=== PATIENT | male | born 1965 | race Caucasian/White ===

== ENCOUNTER 2017-05-10 13:45 | Inpatient (IN) | payer MEDICAID, MEDICARE ==
--- NOTE | 2017-05-10 14:01 | ED ---
Psych HPI - General Source: patient, police, RN notes reviewed Mode of arrival: ambulatory <Radha Varma - Last Filed: 05/10/17 16:35> <Vaughn Soto - Last Filed: 05/10/17 17:39> - General Chief Complaint: Psychiatric Symptoms Stated Complaint: Petition Time Seen by Provider: 05/10/17 13:55 - History of Present Illness Initial Comments: 51-year-old male presents to the emergency department with a chief complaint of carissa type symptoms. Patient has a history of bipolar disorder. Patient has had a manic episode in the past. Family states that going on for about 2 weeks. Patient denies any suicidal or homicidal thoughts. They state that he is very Masking his symptoms. They state they're concerned so they thought that he should be evaluated. They did go to their doctors at the beginning week and a change his medication with no improvement. Patient denies any current health concerns. (Radha Varma) - Related Data Home Medications Medication Instructions Recorded Confirmed ALPRAZolam [Xanax] 0.5 mg PO TID PRN 05/10/17 05/10/17 Previous Rx's Medication Instructions Recorded [place] Carbonate 300 mg PO TID 15 Days 05/25/15 Allergies Allergy/AdvReac Type Severity Reaction Status Date / Time No Known Allergies Allergy Verified 05/10/17 15:21 Review of Systems ROS Other: All systems not noted in ROS Statement are negative. <Radha Varma - Last Filed: 05/10/17 16:35> ROS Other: All systems not noted in ROS Statement are negative. <Vuaghn Soto - Last Filed: 05/10/17 17:39> ROS Statement: Those systems with pertinent positive or pertinent negative responses have been documented in the HPI. Past Medical History Past Medical History: No Reported History Additional Past Medical History / Comment(s): bipolar History of Any Multi-Drug Resistant Organisms: None Reported Past Surgical History: No Surgical Hx Reported Additional Past Anesthesia/Blood Transfusion Reaction / Comment(s): has not had anesthesia or blood transfusion Past Psychological History: Bipolar Smoking Status: Heavy tobacco smoker Past Alcohol Use History: Occasional Past Drug Use History: None Reported <Radha Varma - Last Filed: 05/10/17 16:35> General Exam Limitations: no limitations General appearance: alert, in no apparent distress ENT exam: Present: normal exam, mucous membranes moist Neck exam: Present: normal inspection. Absent: tenderness, meningismus, lymphadenopathy Respiratory exam: Present: normal lung sounds bilaterally. Absent: respiratory distress, wheezes, rales, rhonchi, stridor Cardiovascular Exam: Present: regular rate, normal rhythm, normal heart sounds. Absent: systolic murmur, diastolic murmur, rubs, gallop, clicks GI/Abdominal exam: Present: soft, normal bowel sounds. Absent: distended, tenderness, guarding, rebound, rigid Neurological exam: Present: alert Psychiatric exam: Present: manic. Absent: homicidal ideation, suicidal ideation Skin exam: Present: warm, dry, intact, normal color. Absent: rash <Radha Varma - Last Filed: 05/10/17 16:35> Medical Decision Making - Lab Data Result diagrams: 05/10/17 15:27 05/10/17 15:27 <Radha Varma - Last Filed: 05/10/17 16:35> - Lab Data Result diagrams: 05/10/17 15:27 05/10/17 15:27 <Vaughn Soto - Last Filed: 05/10/17 17:39> - Medical Decision Making 51-year-old male presents for what appears to be manic type episode. This time patient does not appear to be suffering from any acute medical emergencies. This time patient is cleared to be evaluated by psychiatry. At this time lithium level and lab work is reviewed that does not show a toxic level. This time we will admit the patient psychiatric they will follow the lithium level. ( Radha Varma) I evaluated the patient at bedside speaking to his significant other. The patient's been having worsening episodes of manic behavior for the past 3 weeks. He thinks he is God, thinks he is 300,000 years old, he is asking for liverwurst. Thinks he cured his dog of cancer. Patient was evaluated by psychiatric nurse. The patient will be admitted to the psych floor. His lithium level is 1.3. It was repeated here in emergency room. Be repeated again tomorrow morning. The case discussed with his medical physician Dr. Dunn who will follow the patient as needed for medical problems. I have completed a certificate for admission for 3 W. evaluation. Diagnosis acute episode manic. Dr. Soto (Vaughn Soto) - Lab Data Lab Results 05/10/17 05/10/17 05/10/17 Range/Units 14:20 15:27 15:27 WBC 9.3 (3.8-10.6) k/uL RBC 4.63 (4.30-5.90) m/uL Hgb 15.0 (13.0-17.5) gm/dL Hct 45.5 (39.0-53.0) % MCV 98.3 (80.0-100.0) fL MCH 32.4 (25.0-35.0) pg MCHC 32.9 (31.0-37.0) g/dL RDW 12.9 (11.5-15.5) % Plt Count 177 (150-450) k/uL Neutrophils % 66 % Lymphocytes % 22 % Monocytes % 5 % Eosinophils % 6 % Basophils % 1 % Neutrophils # 6.1 (1.3-7.7) k/uL Lymphocytes # 2.1 (1.0-4.8) k/uL Monocytes # 0.5 (0-1.0) k/uL Eosinophils # 0.5 (0-0.7) k/uL Basophils # 0.1 (0-0.2) k/uL Sodium 141 (137-145) mmol/L Potassium 4.2 (3.5-5.1) mmol/L Chloride 107 (98-107) mmol/L Carbon Dioxide 27 (22-30) mmol/L Anion Gap 7 mmol/L BUN 16 (9-20) mg/dL Creatinine 0.87 (0.66-1.25) mg/dL Est GFR (MDRD) Af Amer >60 (>60 ml/min/1.73 sqM) Est GFR (MDRD) Non-Af >60 (>60 ml/min/1.73 sqM) Glucose 90 (74-99) mg/dL Calcium 10.4 H (8.4-10.2) mg/dL Total Bilirubin 0.9 (0.2-1.3) mg/dL AST 19 (17-59) U/L ALT 31 (21-72) U/L Alkaline Phosphatase 60 (38-126) U/L Total Protein 6.4 (6.3-8.2) g/dL Albumin 4.0 (3.5-5.0) g/dL Urine Opiates Screen (NotDetected) Ur Oxycodone Screen (NotDetected) Urine Methadone Screen (NotDetected) Ur Propoxyphene Screen (NotDetected) Ur Barbiturates Screen (NotDetected) U Tricyclic Antidepress (NotDetected) Ur Phencyclidine Scrn (NotDetected) Ur Amphetamines Screen (NotDetected) U Methamphetamines Scrn (NotDetected) U Benzodiazepines Scrn (NotDetected) [place] 1.4 mmol/L Urine Cocaine Screen (NotDetected) U Marijuana (THC) Screen (NotDetected) 05/10/17 Range/Units 16:00 WBC (3.8-10.6) k/uL RBC (4.30-5.90) m/uL Hgb (13.0-17.5) gm/dL Hct (39.0-53.0) % MCV (80.0-100.0) fL MCH (25.0-35.0) pg MCHC (31.0-37.0) g/dL RDW (11.5-15.5) % Plt Count (150-450) k/uL Neutrophils % % Lymphocytes % % Monocytes % % Eosinophils % % Basophils % % Neutrophils # (1.3-7.7) k/uL Lymphocytes # (1.0-4.8) k/uL Monocytes # (0-1.0) k/uL Eosinophils # (0-0.7) k/uL Basophils # (0-0.2) k/uL Sodium (137-145) mmol/L Potassium (3.5-5.1) mmol/L Chloride (98-107) mmol/L Carbon Dioxide (22-30) mmol/L Anion Gap mmol/L BUN (9-20) mg/dL Creatinine (0.66-1.25) mg/dL Est GFR (MDRD) Af Amer (>60 ml/min/1.73 sqM) Est GFR (MDRD) Non-Af (>60 ml/min/1.73 sqM) Glucose (74-99) mg/dL Calcium (8.4-10.2) mg/dL Total Bilirubin (0.2-1.3) mg/dL AST (17-59) U/L ALT (21-72) U/L Alkaline Phosphatase (38-126) U/L Total Protein (6.3-8.2) g/dL Albumin (3.5-5.0) g/dL Urine Opiates Screen Not Detected (NotDetected) Ur Oxycodone Screen Not Detected (NotDetected) Urine Methadone Screen Not Detected (NotDetected) Ur Propoxyphene Screen Not Detected (NotDetected) Ur Barbiturates Screen Not Detected (NotDetected) U Tricyclic Antidepress Not Detected (NotDetected) Ur Phencyclidine Scrn Not Detected (NotDetected) Ur Amphetamines Screen Not Detected (NotDetected) U Methamphetamines Scrn Not Detected (NotDetected) U Benzodiazepines Scrn Detected H (NotDetected) [place] mmol/L Urine Cocaine Screen Not Detected (NotDetected) U Marijuana (THC) Screen Not Detected (NotDetected) Disposition <Radha Varma - Last Filed: 05/10/17 16:35> <Vaughn Soto - Last Filed: 05/10/17 17:39> Clinical Impression: Bipolar disorder Disposition: TRANSFER TO PSYCH HOSP/UNIT Referrals: Vaughn Nguyen DO [Primary Care Provider] - 1-2 days
[2017-05-10] MEDS ORDERED: SODIUM CHLORIDE 0.9% 1,000 ML IV STA ×2 (15:10)
[2017-05-10 15:42] LABS: Basophils # (A) 0.1 k/uL (0-0.2); Basophils % (A) 1 %; CH 32.7; CHCM 33.4; Eosinophils # (A) 0.5 k/uL (0-0.7); Eosinophils % (A) 6 %; HCT 45.5 % (39.0-53.0); HDW 2.28; Luc % (Auto) 1; Lymphocytes # (A) 2.1 k/uL (1.0-4.8); Lymphocytes % (A) 22 %; MCH 32.4 pg (25.0-35.0); MCHC 32.9 g/dL (31.0-37.0); MCV 98.3 fL (80.0-100.0); Mean Platelet Volume 8.4; Monocytes # (A) 0.5 k/uL (0-1.0); Monocytes % (A) 5 %; Neutrophils # (A) 6.1 k/uL (1.3-7.7); Neutrophils % (A) 66 %; RBC 4.63 m/uL (4.30-5.90); RDW 12.9 % (11.5-15.5); WBC 9.3 k/uL (3.8-10.6); WBC (Perox) 8.98
[2017-05-10 15:57] LABS: ALT 31 U/L (21-72); AST 19 U/L (17-59); Alkaline Phosphatase 60 U/L (38-126); Anion Gap 7 mmol/L; Blood Urea Nitrogen 16 mg/dL (9-20); Calcium 10.4 mg/dL (8.4-10.2); Carbon Dioxide 27 mmol/L (22-30); Chloride 107 mmol/L (98-107); Glucose 90 mg/dL (74-99); Non-African American GFR(MDRD) >60 (>60 ml/min/1.73 sqM); Potassium 4.2 mmol/L (3.5-5.1); Sodium 141 mmol/L (137-145); Total Bilirubin 0.9 mg/dL (0.2-1.3); Total Protein 6.4 g/dL (6.3-8.2)
[2017-05-10] MEDS ORDERED: LORazepam 2 MG/ML SYRINGE IM STA (20:25)
[2017-05-10] MEDS ORDERED: MAG HYDROX/AL HYDROX/SIMETH 30 ML CUP PO PRN (21:03)
[2017-05-10] MEDS ORDERED: ACETAMINOPHEN TAB 325 MG TAB PO PRN (21:03)
[2017-05-10] MEDS ORDERED: MAGNESIUM HYDROXIDE 2,400 MG/10 ML CUP PO PRN (21:03)
[2017-05-10] MEDS ORDERED: ZIPRASIDONE 20 MG CAP PO STA (21:11)
[2017-05-11 08:57] LABS: Basophils % (A) 0 %; CH 31.7; Eosinophils # (A) 0.4 k/uL (0-0.7); Eosinophils % (A) 3 %; HCT 46.6 % (39.0-53.0); HDW 2.32; HGB 15.6 gm/dL (13.0-17.5); Luc # (Auto) 0.14; Luc % (Auto) 1; Lymphocytes % (A) 16 %; MCH 33.1 pg (25.0-35.0); MCHC 33.4 g/dL (31.0-37.0); MCV 99.2 fL (80.0-100.0); Mean Platelet Volume 7.7; Monocytes # (A) 0.4 k/uL (0-1.0); Monocytes % (A) 3 %; Neutrophils # (A) 9.7 k/uL (1.3-7.7); Neutrophils % (A) 76 %; RDW 12.5 % (11.5-15.5); WBC 12.8 k/uL (3.8-10.6); WBC (Perox) 13.23
[2017-05-11 09:03] LABS: ALT 35 U/L (21-72); AST 19 U/L (17-59); Alkaline Phosphatase 64 U/L (38-126); Anion Gap 10 mmol/L; Blood Urea Nitrogen 13 mg/dL (9-20); Calcium 10.1 mg/dL (8.4-10.2); Carbon Dioxide 25 mmol/L (22-30); Chloride 107 mmol/L (98-107); Glucose 128 mg/dL (74-99); Non-African American GFR(MDRD) >60 (>60 ml/min/1.73 sqM); Potassium 4.3 mmol/L (3.5-5.1); Sodium 142 mmol/L (137-145); Total Bilirubin 1.1 mg/dL (0.2-1.3); Total Protein 7.1 g/dL (6.3-8.2)
[2017-05-11] MEDS: NICOTINE 14MG/24HR PATCH TRANSDERM SCH (09:20)
[2017-05-11 09:49] LABS: Lithium 0.9 mmol/L
--- NOTE | 2017-05-11 11:40 | P.HP ---
Psychiatric H&P - . H&P Date: 05/11/17 History & Physical: Allergies Allergy/AdvReac Type Severity Reaction Status Date / Time No Known Allergies Allergy Verified 05/10/17 15:21 Vital Signs Temp 98.1 F 05/11/17 06:43 Pulse 67 05/11/17 06:43 Resp 16 05/11/17 06:43 BP 160/86 05/11/17 06:43 Pulse Ox 100 05/10/17 21:46 Intake & Output 05/10/17 05/11/17 05/11/17 18:59 06:59 18:59 Weight 92.079 kg 90.7 kg Laboratory Last Values WBC 12.8 k/uL (3.8-10.6) H 05/11/17 08:31 RBC 4.70 m/uL (4.30-5.90) 05/11/17 08:31 Hgb 15.6 gm/dL (13.0-17.5) 05/11/17 08:31 Hct 46.6 % (39.0-53.0) 05/11/17 08:31 MCV 99.2 fL (80.0-100.0) 05/11/17 08:31 MCH 33.1 pg (25.0-35.0) 05/11/17 08:31 MCHC 33.4 g/dL (31.0-37.0) 05/11/17 08:31 RDW 12.5 % (11.5-15.5) 05/11/17 08:31 Plt Count 195 k/uL (150-450) 05/11/17 08:31 Neutrophils % 76 % 05/11/17 08:31 Lymphocytes % 16 % 05/11/17 08:31 Monocytes % 3 % 05/11/17 08:31 Eosinophils % 3 % 05/11/17 08:31 Basophils % 0 % 05/11/17 08:31 Neutrophils # 9.7 k/uL (1.3-7.7) H 05/11/17 08:31 Lymphocytes # 2.0 k/uL (1.0-4.8) 05/11/17 08:31 Monocytes # 0.4 k/uL (0-1.0) 05/11/17 08:31 Eosinophils # 0.4 k/uL (0-0.7) 05/11/17 08:31 Basophils # 0.0 k/uL (0-0.2) 05/11/17 08:31 Sodium 142 mmol/L (137-145) 05/11/17 08:31 Potassium 4.3 mmol/L (3.5-5.1) 05/11/17 08:31 Chloride 107 mmol/L (98-107) 05/11/17 08:31 Carbon Dioxide 25 mmol/L (22-30) 05/11/17 08:31 Anion Gap 10 mmol/L 05/11/17 08:31 BUN 13 mg/dL (9-20) 05/11/17 08:31 Creatinine 0.84 mg/dL (0.66-1.25) 05/11/17 08:31 Est GFR (MDRD) Af Amer >60 (>60 ml/min/1.73 sqM) 05/11/17 08:31 Est GFR (MDRD) Non-Af >60 (>60 ml/min/1.73 sqM) 05/11/17 08:31 Glucose 128 mg/dL (74-99) H 05/11/17 08:31 Calcium 10.1 mg/dL (8.4-10.2) 05/11/17 08:31 Total Bilirubin 1.1 mg/dL (0.2-1.3) 05/11/17 08:31 AST 19 U/L (17-59) 05/11/17 08:31 ALT 35 U/L (21-72) 05/11/17 08:31 Alkaline Phosphatase 64 U/L (38-126) 05/11/17 08:31 Total Protein 7.1 g/dL (6.3-8.2) 05/11/17 08:31 Albumin 4.3 g/dL (3.5-5.0) 05/11/17 08:31 TSH 1.830 mIU/L (0.465-4.680) 05/11/17 08:31 Urine Opiates Screen Not Detected (NotDetected) 05/10/17 16:00 Ur Oxycodone Screen Not Detected (NotDetected) 05/10/17 16:00 Urine Methadone Screen Not Detected (NotDetected) 05/10/17 16:00 Ur Propoxyphene Screen Not Detected (NotDetected) 05/10/17 16:00 Ur Barbiturates Screen Not Detected (NotDetected) 05/10/17 16:00 U Tricyclic Antidepress Not Detected (NotDetected) 05/10/17 16:00 Ur Phencyclidine Scrn Not Detected (NotDetected) 05/10/17 16:00 Ur Amphetamines Screen Not Detected (NotDetected) 05/10/17 16:00 U Methamphetamines Scrn Not Detected (NotDetected) 05/10/17 16:00 U Benzodiazepines Scrn Detected (NotDetected) H 05/10/17 16:00 [place] 0.9 mmol/L 05/11/17 08:31 Urine Cocaine Screen Not Detected (NotDetected) 05/10/17 16:00 U Marijuana (THC) Screen Not Detected (NotDetected) 05/10/17 16:00 05/11/17 11:08 DATE OF SERVICE: 05/11/2017 IDENTIFYING DATA: This patient is a 51-year-old male who was admitted to the mental health unit through emergency room. HISTORY OF PRESENT ILLNESS: The patient patient was admitted to [facility]. brought in by his . Report of significant drinking in the recent past after a 90 day period of abstinence. Patient has been here before and with the diagnosis bipolar disorder he presented today in a very similar fashion as he did at the last visit in 2014 but today history is even more difficult to ascertain. His lithium level was 1.4 initially and then it was down after of back of saline to 1.2. In the last admission he apparently had stopped taking his lithium became manic and then took a large amount. Patient is a poor historian no relevant history was gathered today. Patient was initially seen in the [facility] asking for help regarding his social security number since I did not know them I asked him what his name was he looked at the board said it was Julio César Gupta, Dr. Gupta was assigned to him initially so his name was still on the board. He was conversing with RN and told her he thought she was speaking Croatian because he could not understand what she was saying. Earlier another RN encountered him in [facility] and he asked about breakfast, she took him to dinning room and it was discovered he had already eaten. A few hours later he was able to state his full name and his date of . When asked what today's date was he repeated his date of . Patients noted that patient has not showered in several days, has not slept in a week or more, thinks he is God, [age] years old, cured their dog of cancer. Patient did not give any information regarding his belief of God or other delusions. He does recall that he was hospitalized here in 2014 stating that this stay has been much better than the last one and that he is ready to go. Later he stated that he didn't want to stay here and be hypnotized, that he just wanted to say goodbye. Patient denies suicidal ideation, states he would never do something like that. PAST PSYCHIATRIC HISTORY: Record he was here in 2014 with a very similar presentation a slightly higher lithium level [place] this time and that he was confused and disoriented but eventually this resolved with a few days of medication. Patient also reports that he has been in other hospitals but he cannot recall their names.. PAST MEDICAL HISTORY: Per record. ALLERGIES: No known drug allergies. CHEMICAL DEPENDENCY HISTORY: It is known that patient has an alcohol use disorder, severe and that he was abstinent for 90 days and then recently just came home with alcohol and that he drank 3 bottles of wine within a short period of time.. FAMILY PSYCHIATRIC HISTORY: Unknown. FAMILY CHEMICAL DEPENDENCY HISTORY: Known. LEGAL HISTORY: Unknown. SOCIAL HISTORY: Was unwilling to continue discussion, he felt that he was being hypnotized. From record it states that he is retired and that he lives with his domestic partner that he does not have a job he does not have health insurance. We do note that he has Medicare part a in the last hospitalization he noted that he had 7 children.. MENTAL STATUS EXAM: Patient alert and oriented name, initially he stated wrong last name that was no the board, giving his doctors name as his last name, he gave , as todays [place]. Knew [place] but not city. Good eye contact, fair groomed in street clothing. Speech normal volume, rate and production. Incoherent, illogical and tangential thought process. + SILVERIO, +FOI. No TB/TW/TI Denied auditory and visual hallucinations. Denied paranoid ideation, delusions or IOR. Memory impaired Cognitionimpaired Could perform memory testing. Mood neutral, affect constricted, congruent with mood. Denies suicidal ideation, denies homicidal ideation. Insight none; Judgment impaired . STRENGTHS: Has income and housing. WEAKNESSES: EtOH, noncompliance with care. IMPRESSIONS: 51-year-old male presenting to the emergency room in a state of confusion, with an elevated lithium level, but not toxic. He was reporting psychotic information while in the emergency room. He has not shown manic symptoms. There is a report that he had been abstinent of alcohol for 3 months and then we started drinking. Patient is confused he is disoriented he at times is confabulating. This could be due to to taking too much lithium although his blood level was at 1.4 we don' t if if he took a large amount and this was already showing a reduction in his blood level and that he has some toxicity from the lithium. Staff reported some distant history of TIAs. ADMISSION DIAGNOSES: Delirium, unknown etiology Psychosis, unspecified Bipolar disorder, MRE manic with psychosis Alcohol use disorder, severe. R/O Cognitive disorder PLAN: Continue inpatient psychiatric admission. Will do second certification, he does not have capacity to sign in voluntarily. Suicide precautions every 15 minute checks Complete second certificate. CAT scan of the brain likely need a sedative [place] level pending. Continue antipsychotic medication, hold lithium. Start Risperdal, or Geodon, or Zyprexa depending upon cost since he does not have part B Gather more information from . Social work to address outpatient care after discharge (patient has Medicare part A, not part B) 05/11/17 11:52 05/11/17 11:53
[2017-05-11] MEDS: LORazepam 1 MG TAB PO PRN ×2 (11:45→15:16)
[2017-05-11] MEDS ORDERED: LORazepam 1 MG TAB PO PRN (11:59)
[2017-05-11] MEDS ORDERED: risperiDONE 1 MG TAB PO STA (12:48)
--- NOTE | 2017-05-11 12:57 | P.PN ---
Progress Note - Text Patient was attempting to leave the unit he was redirected multiple times but could not follow instructions. He then was noted trying to get into the nurses lunch room. Will give a Risperdal 1 mg now will start Risperdal 2 mg daily at bedtime ( reviewed cost of antipsychotic medications since he does not have part B of Medicare) Risperdal is one of the least expensive. We'll also restart lithium 600 mg daily at bedtime.
--- NOTE | 2017-05-11 16:14 | P.CONS ---
History of Present Illness - Reason for Consult Consult date: 05/11/17 Medical management - History of Present Illness Patient refused to be seen by medicine This is a 51-year-old male patient of Dr. Nguyen with past history of anxiety, tobacco use and dependence. Patient presented to [facility] emergency center with chief complaint of carissa symptoms with history of bipolar disorder. He had his last hospitalization at [facility] in May 2015. Patient did not have any suicidal or homicidal thoughts. Family thought his symptoms have been going on for 2 weeks. Apparently there were changes made to his medication at the beginning of the week with no improvement. Patient was subsequently admitted to the mental health unit. White count was 12.8, random blood sugar 128, TSH 1.830. Urine drug screen was positive for benzodiazepines. [place] level was 1.2 and repeat 0.9. Review of Systems All systems: negative Constitutional: Denies chills, Denies fever Eyes: denies blurred vision, denies pain Ears, nose, mouth and throat: Denies headache, Denies sore throat Cardiovascular: Denies chest pain, Denies shortness of breath Respiratory: Denies cough Gastrointestinal: Denies abdominal pain, Denies diarrhea, Denies nausea, Denies vomiting Musculoskeletal: Denies myalgias Integumentary: Denies pruritus, Denies rash Neurological: Denies numbness, Denies weakness Psychiatric: Reports mood swings, Denies anxiety, Denies depression, Denies hopelessness, Denies suicidal ideation Endocrine: Denies fatigue, Denies weight change Past Medical History Past Medical History: No Reported History History of Any Multi-Drug Resistant Organisms: None Reported Past Surgical History: No Surgical Hx Reported Additional Past Anesthesia/Blood Transfusion Reaction / Comm: has not had anesthesia or blood transfusion Past Psychological History: Bipolar Smoking Status: Heavy tobacco smoker Past Alcohol Use History: Occasional Past Drug Use History: None Reported Medications and Allergies Home Medications Medication Instructions Recorded Confirmed Type ALPRAZolam [Xanax] 0.5 mg PO TID PRN 05/10/17 05/10/17 History Allergies Allergy/AdvReac Type Severity Reaction Status Date / Time No Known Allergies Allergy Verified 05/10/17 15:21 Physical Exam Vitals: Vital Signs Temp Pulse Pulse Pulse Resp BP BP 05/11/17 06:43 98.1 F 67 16 05/10/17 21:46 98.0 F 60 18 150/82 05/10/17 21:12 98.7 F 79 18 156/74 05/10/17 16:22 68 18 155/90 05/10/17 13:49 97.8 F 68 18 181/90 BP Pulse Ox 05/11/17 06:43 160/86 05/10/17 21:46 100 05/10/17 21:12 98 05/10/17 16:22 98 05/10/17 13:49 98 Intake and Output 05/10/17 05/11/17 05/11/17 22:59 06:59 14:59 Other: Weight 90.7 kg Results CBC & Chem 7: 05/11/17 08:31 05/11/17 08:31 Labs: Abnormal Lab Results - Last 24 Hours (Table) 05/10/17 05/10/17 05/11/17 Range/Units 15:27 16:00 08:31 WBC 12.8 H (3.8-10.6) k/uL Neutrophils # 9.7 H (1.3-7.7) k/uL Glucose (74-99) mg/dL Calcium 10.4 H (8.4-10.2) mg/dL U Benzodiazepines Scrn Detected H (NotDetected) 05/11/17 Range/Units 08:31 WBC (3.8-10.6) k/uL Neutrophils # (1.3-7.7) k/uL Glucose 128 H (74-99) mg/dL Calcium (8.4-10.2) mg/dL U Benzodiazepines Scrn (NotDetected) Assessment and Plan Plan: 1. Bipolar disorder. Patient admitted to the mental health unit. Continue current plan of care. 2. Tobacco use and dependence. Continue nicotine patch. 3. [ ]. 4. [ ]. 5. [ ]. Impression and plan of care have been directed as dictated by the signing physician. Elizabeth العلي nurse practitioner acting as scribe for signing physician.
[2017-05-11] MEDS: LITHIUM CARBONATE 300 MG CAP PO SCH (20:16)
[2017-05-11] MEDS ORDERED: risperiDONE 2 MG TAB PO SCH (21:00)
--- NOTE | 2017-05-11 21:37 | CT ---
EXAMINATION TYPE: CT brain wo con DATE OF EXAM: 05/11/2017 COMPARISON: NONE HISTORY: Mental status changes. CT DLP: 1093.10 mGycm Automated exposure control for dose reduction was used. FINDINGS: There is no acute intracranial hemorrhage, mass effect, or midline shift identified. The ventricles and sulci are within normal limits in size. The globes are intact and the visualized sinuses are chase ar. IMPRESSION: No acute intracranial hemorrhage, mass effect, or midline shift is seen.
[2017-05-12] MEDS: LORazepam 1 MG TAB PO PRN ×3 (00:07→15:59)
[2017-05-12] MEDS ORDERED: WATER FOR INJECTION, STERILE 10 ML IV ONE (01:07)
[2017-05-12] MEDS ORDERED: ZIPRASIDONE 20 MG VIAL IM ONE (01:07)
[2017-05-12] MEDS: ZIPRASIDONE 20 MG VIAL IM PRN (01:26)
[2017-05-12] MEDS ORDERED: ZIPRASIDONE 20 MG CAP PO STA (06:12)
[2017-05-12] MEDS: NICOTINE 14MG/24HR PATCH TRANSDERM SCH (07:57)
[2017-05-12] MEDS: LITHIUM CARBONATE 300 MG CAP PO SCH ×2 (07:58→20:01)
--- NOTE | 2017-05-12 08:11 | P.PN ---
Progress Note - Text INTERVERAL HISTORY: Patient was discussed at treatment team meeting, review of record, met with patient Staff notes bizarre behavior, attempting to elope, refusing to give NIKKI to speak to . Patient received 2 doses of Geodone during the night, 20mg each, one IM. Patient was in the hallway asked if he would come to the office he followed. Patient was able to report his full name and date of . Stated that he was doing great and was ready to go. When attempting to do mental status exam patient asked "am I good-looking". Asked patient what was happening that he wanted to know he reported "I need to look in a mirror" Patient was again disoriented to date, continued to state today's date as 1964. He was aware that we were in [facility], however he went through to other hospital names before he settled on [place]. Patient still confused, no evidence of alcohol withdrawal. CAT scan showed no evidence of vascular changes, normal CAT scan. MENTAL STATUS EXAM: Patient alert and oriented name, and place after several tries, still stating todasys date as his birthdate. Good eye contact, fair groomed in street clothing. Speech normal volume, rate and production. Coherent, illogical and tangential thought process. + SILVERIO, no FOI. No TB/TW/TI Denied auditory and visual hallucinations. Denied paranoid ideation, delusions or IOR. Memory impaired Cognition impaired Could not perform memory testing. Mood neutral, affect constricted, congruent with mood. Denies suicidal ideation, denies homicidal ideation. Insight none; Judgment impaired . IMPRESSIONS: 51-year-old male presenting to the emergency room in a state of confusion, with an elevated lithium level, but not toxic. [place] level decreasing. [place] was held until last night. He continues with illogical statements, disoriented and confused. This is similiar to his last admission here when his lithium level was elevated above 2.0. He has not shown manic symptoms. There is a report that he had been abstinent of alcohol for 3 months and then he started drinking. CT WNL ADMISSION DIAGNOSES: Delirium, unknown etiology, possibly a higher lithium level then 1.4 Psychosis, unspecified Bipolar disorder, MRE manic with psychosis Alcohol use disorder, severe. R/O Cognitive disorder PLAN: Continue inpatient psychiatric admission, for safety, he does not have capacity to sign in voluntarily. Suicide precautions every 15 minute check. Check [place] level this morning. Will hold at this dose for weekend to see if he clears just with antipsychotic Increase Risperdal, 4mg QHS. Social work to address outpatient care after discharge (patient has Medicare part A, not part B)
[2017-05-12] MEDS: risperiDONE 2 MG TAB PO SCH (20:01)
[2017-05-12] MEDS ORDERED: LORazepam 1 MG TAB PO STA (20:10)
[2017-05-12] MEDS ORDERED: cloNIDine HCL 0.1 MG TAB PO STA (20:12)
[2017-05-13] MEDS: NICOTINE 14MG/24HR PATCH TRANSDERM SCH (09:03)
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
[2017-05-13] MEDS: LITHIUM CARBONATE 300 MG CAP PO SCH (20:13)
[2017-05-13] MEDS: risperiDONE 2 MG TAB PO SCH (20:14)
[2017-05-14] MEDS: NICOTINE 14MG/24HR PATCH TRANSDERM SCH (08:50)
--- NOTE | 2017-05-14 15:23 | P.PN ---
Progress Note - Text Date of service: 05/14/2017 Chief complaint: "feeling good" Subjective: The patient has been seen today as follow-up, chart reviewed, case discussed with the treatment team. Patient presented today more organized in his thoughts and speech. Patient minimized feeling depressed and denies feeling suicidal. No bizarre or inappropriate speech and patient was very quite and prompted to talk today. Patient denies feeling paranoid, and denies any hallucinations. No delusions could be elicited today. Patient was very fixated on medications and reports "I shouldn't be on any antipsychotic" Review of other systems: Patient denies any physical symptoms besides what has been mentioned above. No breathing problems, no chest pain reported today. Objective: Vitals has been reviewed. Mental status examination; Patient appears stated age, adequately groomed with no specific features. The gait was normal and he has normal arm was swinging with no abnormal movement. Patient was superficially engaged and not fully cooperative. The patient has normal psychomotor activity, Speech was prompted, not spontaneous, normal tone and rate. Mood "good" with constricted affect. The patient was more organized thoughts and speech. NO delusions elicited. Denies S/H ideation. The patient was alert but not able to answer question about orientation. Attention: No impairment. Orientation: Patient patient was fully oriented to time place person and situation. Insight: Patient has limited insight about his psychiatric disorder. Judgment: Patient has limited judgment about his psychiatric treatment. Assessment: Unspecified delirium Unspecified psychosis Bipolar disorder most recent manic with psychosis Alcohol use disorder severe Plan: Continue current management including lithium 300 mg at bedtime and Risperdal 4 mg at bedtime. [place] level 05/13 0.6 Continue inpatient hospitalization for further monitoring and stabilization of psychiatric symptoms. Continue monitor for alcohol withdrawal. Start Vitamin B1 injection 250mg im daily X 3 days and start B1 100mg PO daily to address cognitive impairment as result of chronic alcohol use. Continue inpatient level of care.
[2017-05-14] MEDS: risperiDONE 2 MG TAB PO SCH (20:21)
[2017-05-14] MEDS: LITHIUM CARBONATE 300 MG CAP PO SCH (20:21)
[2017-05-14] MEDS: LORazepam 1 MG TAB PO PRN (20:23)
[2017-05-14] MEDS ORDERED: ZIPRASIDONE 20 MG VIAL IM ONE (22:55)
[2017-05-14] MEDS ORDERED: WATER FOR INJECTION, STERILE 10 ML IV ONE (22:55)
[2017-05-14] MEDS: ZIPRASIDONE 20 MG VIAL IM PRN (22:58)
[2017-05-15] MEDS: NICOTINE 14MG/24HR PATCH TRANSDERM SCH (08:45)
--- NOTE | 2017-05-15 09:17 | P.PN ---
Progress Note - Text INTERVERAL HISTORY: Patient discussed at treatment team meeting, review of record, met with patient. Staff report that he urinated in the hallway. That he continues to have non sequitur responses, confabulation. Patient had deferral on 05/12/2017. Patient continues to refuse a release of information so that we can speak with his significant other/ Patient was seen walking in the hallway approached me then started walking backwards facing me stating that I was going to be calling him. Asked patient why he was not dressed in street clothes, he responded "I don't have the time" MENTAL STATUS EXAM: Patient alert and oriented name, and place. Good eye contact, fair groomed in hospital gown Speech normal volume, rate and production. Coherent, illogical and tangential thought process. + SILVERIO, no FOI. No TB/TW/TI Denied auditory and visual hallucinations. Denied paranoid ideation, delusions or IOR. Memory impaired Cognition impaired Could not perform memory testing. Mood neutral euthymic affect full range, congruent with mood. Denies suicidal ideation, denies homicidal ideation. Insight none; Judgment impaired . IMPRESSIONS: 51-year-old male presenting to the emergency room in a state of confusion, with an elevated lithium level, but not toxic. [place] level 0.6 with 300mg QHS. He continues with illogical statements, disoriented and confused. This is similiar to his last admission here when his lithium level was elevated above 2.0. He has not shown manic symptoms. There is a report that he had been abstinent of alcohol for 3 months and then he started drinking. CT WNL ADMISSION DIAGNOSES: Delirium, unknown etiology, Psychosis, unspecified Bipolar disorder, MRE manic with psychosis Alcohol use disorder, severe. R/O Cognitive disorder PLAN: Continue inpatient psychiatric admission, for safety, he does not have capacity to sign in voluntarily. Suicide precautions every 15 minute check. Continue lithium 300 mg daily at bedtime Continue risperidone 4 mg daily at bedtime Social work to address outpatient care after discharge (patient has Medicare part A, not part B)
[2017-05-15] MEDS: TAMSULOSIN 0.4 MG CAP.ER.24H PO SCH (09:36)
[2017-05-15] MEDS: THIAMINE 100 MG/ML 2 ML VIAL IM SCH (09:36)
[2017-05-15] MEDS: LORazepam 1 MG TAB PO PRN ×3 (09:41→22:28)
[2017-05-15 10:44] LABS: Hemoglobin A1C 5.5 % (4.2-6.1)
[2017-05-15] MEDS: THIAMINE 100 MG TAB PO SCH (12:09)
[2017-05-15] MEDS ORDERED: OLANZapine 10 MG TAB PO STA (17:32)
[2017-05-15] MEDS ORDERED: WATER FOR INJECTION, STERILE 10 ML IV ONE (19:03)
[2017-05-15] MEDS ORDERED: ZIPRASIDONE 20 MG VIAL IM ONE (19:03)
[2017-05-15] MEDS: ZIPRASIDONE 20 MG VIAL IM PRN (19:13)
[2017-05-15] MEDS: risperiDONE 2 MG TAB PO SCH (21:15)
[2017-05-15] MEDS: LITHIUM CARBONATE 300 MG CAP PO SCH (21:16)
[2017-05-15] MEDS ORDERED: HALOPERIDOL 5 MG TAB PO STA (23:50)
[2017-05-15] MEDS ORDERED: LORazepam 1 MG TAB PO STA (23:52)
[2017-05-16] MEDS ORDERED: DIAZEPAM 5 MG/ML 2 ML SYRINGE IM ONE (00:45)
[2017-05-16] MEDS: TAMSULOSIN 0.4 MG CAP.ER.24H PO SCH (09:44)
[2017-05-16] MEDS: THIAMINE 100 MG/ML 2 ML VIAL IM SCH ×3 (09:48→10:16)
[2017-05-16] MEDS: NICOTINE 14MG/24HR PATCH TRANSDERM SCH (10:05)
--- NOTE | 2017-05-16 11:26 | P.PN ---
Progress Note - Text Progress Note - Text INTERVERAL HISTORY: Patient discussed at treatment team meeting, review of record, met with patient. Patient was agitated last night, urinating again in hallway and also in the patient's room on the bed. He was noted last night to be aggressive, using foul language which is atypical for patient. He finally gave NIKKI and RN spoke to , who said patient had been not sleeping, stressed over a number of issues. Due to his behavior he received Geodon 20mg Haldol, Valium 10mg and Ativan 2mg. He finally slept around 4 AM, he was assigned 1:1 for protection. He was asleep this AM, entered room with RN for medications. He awoke, pleasant and responded appropriately. No cogwheeling. No loss of strength, no evidence of cva. Patient had deferral on 05/12/2017. MENTAL STATUS EXAM: Patient alert and oriented name, gave May 15, 2017, barbara hernandez. Good eye contact, fair groomed in hospital gown Speech normal volume, rate and production. Coherent, logical and goal directed thought process. SILVERIO, no FOI. No TB/TW/TI Denied auditory and visual hallucinations. Denied paranoid ideation, delusions or IOR. Memory impaired Cognition impaired Could not perform memory testing. Mood neutral, affect full range, congruent with mood. Denies suicidal ideation, denies homicidal ideation. Insight none; Judgment impaired . IMPRESSIONS: 51-year-old male presenting to the emergency room in a state of confusion, with an elevated lithium level, but not toxic. Last night became agitated, aggressive, urination in other rooms. Required multple medication, IM and PO and did not settle down until 4AM. Patient has hx of high dose of benzodiazepine and it is possible he had taken more than instructed and an abrupt cessation when admited here 6 days ago. He began to have increased confusion over the weekend, approx 72 hours from admission. This may be a episode of carissa, with superimposed delirium due to benzodiazepine withdrawal. CT WNL ADMISSION DIAGNOSES: Delirium, unknown etiology, R/O benzodiazepine Psychosis, unspecified Bipolar disorder, MRE manic with psychosis Alcohol use disorder, severe. R/O Cognitive disorder PLAN: Continue inpatient psychiatric admission, for safety, he does not have capacity to sign in voluntarily. Suicide precautions every 15 minute check. Will begin clonazepam 2mg BID x 2 days, if patient remains oriented will begin a a taper on Continue lithium 300 mg daily at bedtime Continue risperidone 4 mg daily at bedtime Social work to address outpatient care after discharge (patient has Medicare part A, not part B)
[2017-05-16] MEDS: clonazePAM 1 MG TAB PO SCH ×2 (11:32→20:04)
[2017-05-16] MEDS: THIAMINE 100 MG TAB PO SCH (11:39)
[2017-05-16] MEDS: risperiDONE 2 MG TAB PO SCH (20:04)
[2017-05-16] MEDS: LITHIUM CARBONATE 300 MG CAP PO SCH (20:04)
--- NOTE | 2017-05-17 08:41 | P.PN ---
Progress Note - Text INTERVERAL HISTORY: Patient discussed at treatment team meeting, review of record, met with patient. Patient slept well last night. STaff reports he is more appropriate. Patient was seen in hallway, greeted and appropriate. Reports he slept 8 hours last night, feels better. He was noted to be sound a sleep this afternoon. SO reported to SW that he thinks he is better but still not at his baseline. Patient had deferral on 05/12/2017. MENTAL STATUS EXAM: Patient alert and oriented name, May 16, 2017, barbara hernandez. Good eye contact, fair groomed in personal clothing.hospital gown Speech normal volume, rate and production. Coherent, logical and goal directed thought process. SILVERIO, no FOI. No TB/TW/TI Denied auditory and visual hallucinations. Denied paranoid ideation, delusions or IOR. Memory impaired Cognition impaired Could not perform memory testing. Mood neutral, affect full range, congruent with mood. Denies suicidal ideation, denies homicidal ideation. Insight none; Judgment impaired . IMPRESSIONS: 51-year-old male presenting to the emergency room in a state of confusion, with an elevated lithium level, but not toxic. Became agitated, aggressive, urination in other rooms 2 nights ago, slept well last night. Now more appropriate. Patient has hx of high dose of benzodiazepine and it is possible he had taken more than instructed and an abrupt cessation when admited here 7 days ago. He began to have increased confusion over the weekend, approx 72 hours from admission. This may be a episode of carissa, with superimposed delirium due to benzodiazepine withdrawal. CT WNL ADMISSION DIAGNOSES: Delirium, unknown etiology, R/O benzodiazepine withdrawal Psychosis, unspecified Bipolar disorder, MRE manic with psychosis Alcohol use disorder, severe. R/O Cognitive disorder PLAN: Continue inpatient psychiatric admission, for safety, he does not have capacity to sign in voluntarily. Suicide precautions every 15 minute check. Continue clonazepam 2mg BID, will begin a a taper on Continue lithium 300 mg daily at bedtime Continue risperidone 4 mg daily at bedtime Social work to address outpatient care after discharge (patient has Medicare part A, not part B)
[2017-05-17] MEDS: TAMSULOSIN 0.4 MG CAP.ER.24H PO SCH (08:44)
[2017-05-17] MEDS: clonazePAM 1 MG TAB PO SCH ×2 (08:46→20:09)
[2017-05-17] MEDS: NICOTINE 14MG/24HR PATCH TRANSDERM SCH (08:46)
[2017-05-17] MEDS: THIAMINE 100 MG TAB PO SCH (13:23)
[2017-05-17 14:56] LABS: Appearance,Urine Clear (Clear); Bilirubin,Urine Negative (Negative); Glucose,Urine (UA) Negative (Negative); Ketones,Urine Negative (Negative); Leukocyte Esterase,Urine Negative (Negative); Nitrite,Urine Negative (Negative); Protein,Urine Negative (Negative); Specific Gravity,Urine 1.006 (1.001-1.035); UA Billing (MACRO vs. MICRO) CHEM; Urobilinogen,Urine <2.0 mg/dL (<2.0)
[2017-05-17] MEDS: risperiDONE 2 MG TAB PO SCH (20:09)
[2017-05-17] MEDS: LITHIUM CARBONATE 300 MG CAP PO SCH (20:09)
[2017-05-18] MEDS: NICOTINE 14MG/24HR PATCH TRANSDERM SCH (08:03)
[2017-05-18] MEDS: TAMSULOSIN 0.4 MG CAP.ER.24H PO SCH (08:04)
[2017-05-18] MEDS: clonazePAM 1 MG TAB PO SCH (08:04)
[2017-05-18] MEDS: THIAMINE 100 MG TAB PO SCH (11:14)
--- NOTE | 2017-05-18 11:50 | P.PN ---
Progress Note - Text INTERVERAL HISTORY: Patient discussed at treatment team meeting, review of record, met with patient. Patient slept well last night. Yesterday afternoon when I saw him he was having SILVERIO and staff also noted the change in his thinking. He also told staff I was going to give him a pass to go home to see his dog. He again was confused at night, need a geodon IM Today patient came to office door, but I could not see him. Later he was in hallway and came when called. Reports he slept 8 hours last night, feels better. Patient was improved today in that no SILVERIO during session Patient reports he is hungry and requests larger portions. Patient had deferral on 05/12/2017. MENTAL STATUS EXAM: Patient alert and oriented name, May 18, 2017, barbara hernandez. Good eye contact, fair groomed in personal clothing. Speech normal volume, rate and production. Coherent, logical and goal directed thought process. ~SILVERIO, no FOI. No TB/TW/TI Denied auditory and visual hallucinations. Denied paranoid ideation, delusions or IOR. 3/3 at 0 minutes, 2/3 at 5 minutes. Spelled world forward and backwards correctly Completed serial sevens with some errors, 92, 85, 72, 55, 48, 41, 34, 23, 16, 9 , 2 Mood neutral, affect full range, decreased intensity congruent with mood. Denies suicidal ideation, denies homicidal ideation. Insight none; Judgment impaired Review of medications GEODON PO OR IM 05/10, 05/12 X2; 05/14 Zyprexa 10mg PO 05/15 Haldol PO 05/15 Valium 10mg IM 05/16 Ativan 1mg 05/10, 05/11, 05/12 x2; 05/15X2; Ativan 2mg 3X2 IMPRESSIONS: 51-year-old male presenting to the emergency room in a state of confusion, with an elevated lithium level, but not toxic. Became agitated, aggressive, urination in other rooms 3 nights ago, and again last night. Yesterday he was noted to have inappropriate responses, labile, + SILVERIO. This morning only one possible odd remark about his diet. Believes we discussed a pass for him to see his dog (we never spoke about his dog) He reports sleeping well. This appears to be a combination of carissa, psychosis and possible delirium (ie waxing and waning awarenes) CT WNL ADMISSION DIAGNOSES: Delirium, unknown etiology, R/O benzodiazepine withdrawal Psychosis, unspecified Bipolar disorder, MRE manic with psychosis Alcohol use disorder, severe. R/O Cognitive disorder PLAN: Continue inpatient psychiatric admission, for safety, he does not have capacity to sign in voluntarily. Suicide precautions every 15 minute check. D/C, clonazepam, will retry valium 2mg AM; 5MG QHS D/C risperidone retry haldol 5mg bid Continue lithium 300 mg daily at bedtime CBC, Chem 14, [place] level Social work to address outpatient care after discharge (patient has Medicare part A, not part B)
[2017-05-18 13:34] VITALS: BMI 26.7
[2017-05-18 16:22] LABS: Basophils # (A) 0.1 k/uL (0-0.2); Basophils % (A) 1 %; CH 32.3; CHCM 33.2; Eosinophils # (A) 0.2 k/uL (0-0.7); Eosinophils % (A) 2 %; HDW 2.15; Luc # (Auto) 0.17; Luc % (Auto) 2; Lymphocytes # (A) 1.8 k/uL (1.0-4.8); Lymphocytes % (A) 23 %; MCH 32.7 pg (25.0-35.0); MCHC 33.4 g/dL (31.0-37.0); MCV 97.8 fL (80.0-100.0); Mean Platelet Volume 7.8; Monocytes # (A) 0.5 k/uL (0-1.0); Monocytes % (A) 7 %; Neutrophils # (A) 5.4 k/uL (1.3-7.7); Neutrophils % (A) 66 %; RBC 4.29 m/uL (4.30-5.90); RDW 12.8 % (11.5-15.5); WBC 8.2 k/uL (3.8-10.6)
[2017-05-18] MEDS: HALOPERIDOL 5 MG TAB PO SCH (20:22)
[2017-05-18] MEDS: LITHIUM CARBONATE 300 MG CAP PO SCH (20:22)
[2017-05-18] MEDS: DIAZEPAM 5 MG TAB PO SCH (20:22)
[2017-05-19] MEDS: TAMSULOSIN 0.4 MG CAP.ER.24H PO SCH (08:40)
[2017-05-19] MEDS: NICOTINE 14MG/24HR PATCH TRANSDERM SCH (08:40)
[2017-05-19] MEDS: HALOPERIDOL 5 MG TAB PO SCH ×2 (08:40→20:59)
[2017-05-19 09:20] LABS: ALT 44 U/L (21-72); AST 20 U/L (17-59); Alkaline Phosphatase 56 U/L (38-126); Anion Gap 9 mmol/L; Blood Urea Nitrogen 18 mg/dL (9-20); Calcium 9.5 mg/dL (8.4-10.2); Carbon Dioxide 26 mmol/L (22-30); Chloride 107 mmol/L (98-107); Glucose 89 mg/dL (74-99); Lithium <0.2 mmol/L; Non-African American GFR(MDRD) >60 (>60 ml/min/1.73 sqM); Potassium 4.7 mmol/L (3.5-5.1); Sodium 142 mmol/L (137-145); Total Bilirubin 0.7 mg/dL (0.2-1.3); Total Protein 6.4 g/dL (6.3-8.2)
--- NOTE | 2017-05-19 11:32 | P.PN ---
Progress Note - Text INTERVERAL HISTORY: Patient discussed at treatment team meeting, review of record, met with patient. Patient slept well last night, but states he woke up at 10 thinking he had slept the whole night but found patients watching TV and realized it was still night, he was able to fall back to sleep, getting up once to urinate. States he feels better than yesterday. Patient reports he is not hungry. Patient had deferral on 05/12/2017. MENTAL STATUS EXAM: Patient alert and oriented name, May 19, 2017, Niraj Torres. Good eye contact, fair groomed in personal clothing. Speech normal volume, rate and production. Coherent, logical and goal directed thought process. no SILVERIO, no FOI. No TB/TW/ TI Denied auditory and visual hallucinations. Denied paranoid ideation, delusions or IOR. Requested to know what the 3rd word was that he forgot yesterday (3/3 at 0 minutes, 2/3 at 5 minutes) Mood neutral, affect full range, decreased intensity congruent with mood. Denies suicidal ideation, denies homicidal ideation. Insight none; Judgment impaired Review of medications GEODON PO OR IM 05/10, 05/12 X2; 05/14 Zyprexa 10mg PO 05/15 Haldol PO 05/15 Valium 10mg IM 05/16 Ativan 1mg 05/10, 05/11, 05/12 x2; 05/15X2; Ativan 2mg 3X2 CURRENT MEDICATIONS: HALDOL 5MG QHS (received 2mg in AM yesterday, in addition to clonazepm 2mg) VALIUM 5MG QHS Laboratory Tests 05/18/17 05/19/17 15:49 08:14 WBC 8.2 RBC 4.29 L Hgb 14.0 Hct 42.0 MCV 97.8 MCH 32.7 MCHC 33.4 RDW 12.8 Plt Count 180 Neutrophils % 66 Lymphocytes % 23 Monocytes % 7 Eosinophils % 2 Basophils % 1 Neutrophils # 5.4 Lymphocytes # 1.8 Monocytes # 0.5 Eosinophils # 0.2 Basophils # 0.1 Sodium 142 Potassium 4.7 Chloride 107 Carbon Dioxide 26 Anion Gap 9 BUN 18 Creatinine 0.80 Est GFR (MDRD) Af Amer >60 Est GFR (MDRD) Non-Af >60 Glucose 89 Calcium 9.5 Total Bilirubin 0.7 AST 20 ALT 44 Alkaline Phosphatase 56 Total Protein 6.[address] [place] <0.2 IMPRESSIONS: 51-year-old male presenting to the emergency room in a state of confusion, with an elevated lithium level, but not toxic. Became agitated, aggressive, urinating in hallway and bedrooms, 4 nights ago, and again 2 nights ago (05/17/17). No inappropriate statements, on topic. He reports sleeping well. This appears to be a combination of carissa, psychosis and delirium (ie waxing and waning awarenes) CT WNL ADMISSION DIAGNOSES: Delirium, unknown etiology, R/O benzodiazepine withdrawal Psychosis, unspecified Bipolar disorder, MRE manic with psychosis Alcohol use disorder, severe. R/O Cognitive disorder PLAN: Continue inpatient psychiatric admission, for safety, he does not have capacity to sign in voluntarily. Suicide precautions every 15 minute check. Continue valium 2mg AM; 5MG QHS Continue lithium 300 mg daily at bedtime, will reconsider increasing if patient remains clear with a reduction in valium. Social work to address outpatient care after discharge (patient has Medicare part A, not part B)
[2017-05-19] MEDS: THIAMINE 100 MG TAB PO SCH (12:14)
[2017-05-19] MEDS: DIAZEPAM 5 MG TAB PO SCH (20:59)
[2017-05-19] MEDS: LITHIUM CARBONATE 300 MG CAP PO SCH (20:59)
[2017-05-20] MEDS: NICOTINE 14MG/24HR PATCH TRANSDERM SCH (08:27)
[2017-05-20] MEDS: TAMSULOSIN 0.4 MG CAP.ER.24H PO SCH (08:27)
[2017-05-20] MEDS: HALOPERIDOL 5 MG TAB PO SCH ×2 (08:27→20:15)
[2017-05-20] MEDS: THIAMINE 100 MG TAB PO SCH (12:07)
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
[2017-05-20] MEDS: LITHIUM CARBONATE 300 MG CAP PO SCH (20:15)
[2017-05-20] MEDS: DIAZEPAM 5 MG TAB PO SCH (20:15)
[2017-05-21] MEDS: NICOTINE 14MG/24HR PATCH TRANSDERM SCH (08:24)
[2017-05-21] MEDS: TAMSULOSIN 0.4 MG CAP.ER.24H PO SCH (08:25)
[2017-05-21] MEDS: THIAMINE 100 MG TAB PO SCH (08:25)
[2017-05-21] MEDS ORDERED: HALOPERIDOL 2 MG TAB PO SCH (09:00)
--- NOTE | 2017-05-21 11:01 | P.PN ---
Progress Note - Text INTERVERAL HISTORY: Patient discussed with nursing staff, no problems were noted overnight Patient slept well last night, no naps today. Reports anxiety with the new patients who are loud, hyperverbal and religiously preoccupied but he is still going to groups He is not sure if he will have visitors tonight since his family meeting is tomorrow. He does give history of overtaking the amount of Xanax. Patient had deferral on 05/12/2017. MENTAL STATUS EXAM: Patient alert and oriented name, May 20, 2017, Niraj Torres. Good eye contact, fair groomed in personal clothing. Speech normal volume, rate and production. Coherent, logical and goal directed thought process. no SILVERIO, no FOI. No TB/TW/ TI Denied auditory and visual hallucinations. Denied paranoid ideation, delusions or IOR. Mood neutral, affect full range, decreased intensity congruent with mood. Denies suicidal ideation, denies homicidal ideation. Insight partial; Judgment improving IMPRESSIONS: 51-year-old male presenting to the emergency room in a state of confusion, with an elevated lithium level, but not toxic. Became agitated, aggressive, urinating in hallway and bedrooms, now with improved orientation, has been oriented for 3-4 days now, no inappropritate/ tangential remarks for 2days. He reports sleeping well. This appears to be a combination of carissa, psychosis and delirium (ie waxing and waning awarenes) CT [facility] ADMISSION DIAGNOSES: Delirium, unknown etiology, R/O benzodiazepine withdrawal Psychosis, unspecified Bipolar disorder, MRE manic with psychosis Alcohol use disorder, severe. R/O Cognitive disorder PLAN: Continue inpatient psychiatric admission, for safety, he does not have capacity to sign in voluntarily. Suicide precautions every 15 minute check. Continue 5MG QHS D/C Haldol in AM to 2.5mg, continue 5mg QHS Continue lithium 300 mg daily at bedtime, will reconsider increasing if patient remains clear with a reduction in valium. Social work to address outpatient care after discharge (patient has Medicare part A, not part B)
[2017-05-21] MEDS: DIAZEPAM 5 MG TAB PO SCH (20:43)
[2017-05-21] MEDS: LITHIUM CARBONATE 300 MG CAP PO SCH (20:43)
[2017-05-21] MEDS: HALOPERIDOL 5 MG TAB PO SCH (20:43)
[2017-05-22] MEDS: TAMSULOSIN 0.4 MG CAP.ER.24H PO SCH (08:53)
[2017-05-22] MEDS: NICOTINE 14MG/24HR PATCH TRANSDERM SCH (08:53)
[2017-05-22] MEDS: THIAMINE 100 MG TAB PO SCH (12:12)
[2017-05-22] MEDS ORDERED: DIAZEPAM 2 MG TAB PO SCH (16:17)
--- NOTE | 2017-05-22 16:31 | P.PN ---
Progress Note - Text INTERVERAL HISTORY: Patient discussed with treatment team, review of record, and met with patient. Staff reports that patient looks well today, he is calm and appropriate in all situations. States that he slept well last night and was not having naps during the day. Had his family meeting and that went well and plan is that he will discharge tomorrow. He does give history of overtaking the amount of Xanax. Patient had deferral on 05/12/2017. MENTAL STATUS EXAM: Patient alert and oriented name, May 20, 2017, Niraj Torres. Good eye contact, fair groomed in personal clothing. Speech normal volume, rate and production. Coherent, logical and goal directed thought process. no SILVERIO, no FOI. No TB/TW/ TI Denied auditory and visual hallucinations. Denied paranoid ideation, delusions or IOR. Mood euthymic, affect full range, normal intensity congruent with mood. Denies suicidal ideation, denies homicidal ideation. Insight partial; Judgment intact IMPRESSIONS: 51-year-old male presenting to the emergency room in a state of confusion, with an elevated lithium level, but not toxic. Became agitated, aggressive, urinating in hallway and bedrooms, that was likely due to a combinaiton of benzodiazepine and etoh withdrawal superimposed on manic episode. He reports sleeping well. This appears to be a combination of carissa, psychosis and delirium (ie waxing and waning awarenes) CT WNL ADMISSION DIAGNOSES: Delirium, unknown etiology, ETOH and benzodiazepine withdrawal Bipolar disorder, MRE manic with psychosis Alcohol use disorder, severe. PLAN: Continue inpatient psychiatric admission, for safety, he does not have capacity to sign in voluntarily. Suicide precautions every 15 minute check. Reduce Valium 2mg QHS. Haldol 5mg QHS Continue lithium 300 mg daily at bedtime, Social work to address outpatient care after discharge (patient has Medicare part A, not part B)
--- NOTE | 2017-05-22 16:51 | P.DS ---
Providers Date of admission: 05/10/17 20:24 Expected date of discharge: 05/23/17 Attending physician: Alissa Martinez MD Consults: 05/10/17 21:03 Consult Physician Routine Consulting Provider: Quiana Dunn Consult Reason/Comments: H&P with medical follow up Do you want consulting provider notified?: Already Contacted Primary care physician: [facility] Course: INTERVERAL HISTORY: Patient discussed with treatment team, review of record, and met with patient. Staff reports that patient looks well today, he is calm and appropriate in all situations. States that he slept well last night and was not having naps during the day. Had his family meeting and that went well and plan is that he will discharge tomorrow. He does give history of overtaking the amount of Xanax. Patient had deferral on 05/12/2017. MENTAL STATUS EXAM: Patient alert and oriented name, May 20, 2017, Niraj Torres. Good eye contact, fair groomed in personal clothing. Speech normal volume, rate and production. Coherent, logical and goal directed thought process. no SILVERIO, no FOI. No TB/TW/ TI Denied auditory and visual hallucinations. Denied paranoid ideation, delusions or IOR. Mood euthymic, affect full range, normal intensity congruent with mood. Denies suicidal ideation, denies homicidal ideation. Insight partial; Judgment intact IMPRESSIONS: 51-year-old male presenting to the emergency room in a state of confusion, with an elevated lithium level, but not toxic. Became agitated, aggressive, urinating in hallway and bedrooms, that was likely due to a combinaiton of benzodiazepine and etoh withdrawal superimposed on manic episode. He reports sleeping well. This appears to be a combination of carissa, psychosis and delirium (ie waxing and waning awarenes) CT WNL ADMISSION DIAGNOSES: Delirium, unknown etiology, ETOH and benzodiazepine withdrawal Bipolar disorder, MRE manic with psychosis Alcohol use disorder, severe. Pertinent Studies: CT of Head WNL Procedures: none Patient Condition at Discharge: Stable Plan - Discharge Summary New Discharge Prescriptions: New Diazepam [Valium] 2 mg PO HS #14 tab Haloperidol [Haldol] 5 mg PO HS #14 tab [place] Carbonate 300 mg PO HS #14 cap Tamsulosin [Flomax] 0.4 mg PO PC-BRKFST #30 cap Discontinued [place] Carbonate 300 mg PO TID 15 Days ALPRAZolam [Xanax] 0.5 mg PO TID PRN PRN Reason: Anxiety Discharge Medication List Diazepam [Valium] 2 mg PO HS #14 tab 05/22/17 [Rx] Haloperidol [Haldol] 5 mg PO HS #14 tab 05/22/17 [Rx] [place] Carbonate 300 mg PO HS #14 cap 05/22/17 [Rx] Tamsulosin [Flomax] 0.4 mg PO PC-BRKFST #30 cap 05/22/17 [Rx] Follow up Appointment(s)/Referral(s): [facility] [Outside] - 05/29/17 10:00 am (Please be 15 to 20 min early) Vaughn Nguyen DO [Primary Care Provider] - 1-2 days Patient Instructions/Handouts: How to Stop Smoking (DC) Discharge Disposition: HOME SELF-CARE
[2017-05-22] MEDS: LITHIUM CARBONATE 300 MG CAP PO SCH (20:50)
[2017-05-22] MEDS: HALOPERIDOL 5 MG TAB PO SCH (20:50)
[2017-05-23 02:57] VITALS: BP 165/95; PULSE 71; TEMP 97.2
[2017-05-23 06:01] VITALS: RESP 16
[2017-05-23] MEDS: NICOTINE 14MG/24HR PATCH TRANSDERM SCH (08:08)
[2017-05-23] MEDS: TAMSULOSIN 0.4 MG CAP.ER.24H PO SCH (08:08)
== END 2017-05-23 12:25 | disposition home or self-care (01) | DRG 897 ==
LOC: EC 13:45 → 3MHU 20:24
PROVIDERS: ADMIT Psychiatry & Neurology Addiction Medicine; ATTEND Psychiatry & Neurology Addiction Medicine
DX: F10.231 Alcohol dependence with withdrawal delirium (principal); F31.2 Bipolar disorder, current episode manic severe with psychotic features; F13.231 Sedative, hypnotic or anxiolytic dependence with withdrawal delirium; F17.200 Nicotine dependence, unspecified, uncomplicated; Z79.899 Other long term (current) drug therapy; Z86.73 Personal history of transient ischemic attack (TIA), and cerebral infarction without residual deficits
CPT/HCPCS: 36415; 70450; 80053; 80178; 80306; 81003; 82075; 83036; 84443; 85025; 96360; 96361; 96372; 99285

== ENCOUNTER 2017-06-04 21:55 | Inpatient (IN) | payer MEDICARE ==
[2017-06-04] MEDS ORDERED: SODIUM CHLORIDE 0.9% 1,000 ML IV STA (22:03)
[2017-06-04 22:10] LABS: Glucose,Whole Blood 92 mg/dL (75-99)
[2017-06-04 22:19] LABS: Basophils # (A) 0.1 k/uL (0-0.2); Basophils % (A) 1 %; CH 32.6; CHCM 33.1; Eosinophils # (A) 0.4 k/uL (0-0.7); Eosinophils % (A) 6 %; HCT 47.1 % (39.0-53.0); HDW 2.25; HGB 15.8 gm/dL (13.0-17.5); Luc # (Auto) 0.13; Luc % (Auto) 2; Lymphocytes # (A) 2.4 k/uL (1.0-4.8); Lymphocytes % (A) 32 %; MCH 33.2 pg (25.0-35.0); MCHC 33.5 g/dL (31.0-37.0); MCV 99.1 fL (80.0-100.0); Monocytes # (A) 0.3 k/uL (0-1.0); Monocytes % (A) 4 %; Neutrophils # (A) 4.2 k/uL (1.3-7.7); Neutrophils % (A) 56 %; RBC 4.75 m/uL (4.30-5.90); RDW 14.1 % (11.5-15.5); WBC 7.5 k/uL (3.8-10.6); WBC (Perox) 7.35
[2017-06-04 22:23] LABS: INR 1.1 (<1.2); Prothrombin Time 10.8 sec (9.0-12.0)
[2017-06-04 22:26] LABS: Appearance,Urine Clear (Clear); Bilirubin,Urine Negative (Negative); Glucose,Urine (UA) Negative (Negative); Ketones,Urine Negative (Negative); Leukocyte Esterase,Urine Negative (Negative); Nitrite,Urine Negative (Negative); Protein,Urine Negative (Negative); UA Billing (MACRO vs. MICRO) CHEM; Urobilinogen,Urine <2.0 mg/dL (<2.0)
[2017-06-04 22:29] LABS: ALT 43 U/L (21-72); AST 23 U/L (17-59); Acetaminophen <10.0 ug/mL; Alkaline Phosphatase 58 U/L (38-126); Anion Gap 11 mmol/L; Blood Urea Nitrogen 12 mg/dL (9-20); Calcium 9.5 mg/dL (8.4-10.2); Carbon Dioxide 23 mmol/L (22-30); Chloride 110 mmol/L (98-107); Glucose 76 mg/dL (74-99); Lithium 0.6 mmol/L; Non-African American GFR(MDRD) >60 (>60 ml/min/1.73 sqM); Potassium 4.2 mmol/L (3.5-5.1); Salicylate <1.0 mg/dL; Sodium 144 mmol/L (137-145); Total Bilirubin 0.4 mg/dL (0.2-1.3); Total Protein 6.7 g/dL (6.3-8.2)
[2017-06-04 22:52] LABS: Specific Gravity,Urine 1.001 (1.001-1.035)
--- NOTE | 2017-06-04 23:28 | XR ---
EXAM: XR Chest, 1 View CLINICAL HISTORY: Reason: overdose TECHNIQUE: Frontal view of the chest. COMPARISON: No relevant prior studies available. FINDINGS: Lungs: The lungs are hypoventilatory. No focal consolidation. Pleural space: Unremarkable. No pneumothorax. Heart: Unremarkable. No cardiomegaly. Mediastinum: Unremarkable. Bones/joints: No acute osseous abnormality. Tubes, lines and devices: Telemetry leads overlie the patient. IMPRESSION: Hypoventilatory examination without evidence of acute cardiopulmonary disease.
[2017-06-04 23:54] LABS: Alcohol 158 mg/dL
[2017-06-05] MEDS ORDERED: NALOXONE 0.4 MG/ML 1 ML VIAL IV PRN (00:59)
[2017-06-05] MEDS ORDERED: ONDANSETRON 4 MG/2 ML VIAL IVP PRN (00:59)
[2017-06-05] MEDS ORDERED: DEXTROSE 5%-0.45% NACL 1,000 ML IV SCH (01:00)
--- NOTE | 2017-06-05 01:13 | ED ---
General Adult HPI - General Chief complaint: Overdose Stated complaint: OVERDOSE Source: patient, family, EMS, RN notes reviewed Mode of arrival: EMS Limitations: altered mental status - History of Present Illness Initial comments: 51-year-old male presented by EMS with suspicion for benzodiazepine and lithium overdose. Patient was minimally responsive on scene. He did state he took a lot of benzodiazepines and a lot of lithium. He was unable to initially quantify the exact number. Patient is also found next to a gun. On initial evaluation the patient does admit to taking Xanax, however complete history is unable to be obtained due to mental status. - Related Data Previous Rx's Medication Instructions Recorded Diazepam [Valium] 2 mg PO HS #14 tab 05/22/17 Haloperidol [Haldol] 5 mg PO HS #14 tab 05/22/17 [place] Carbonate 300 mg PO HS #14 cap 05/22/17 Tamsulosin [Flomax] 0.4 mg PO PC-BRKFST #30 cap 05/22/17 Allergies Allergy/AdvReac Type Severity Reaction Status Date / Time No Known Allergies Allergy Verified 06/04/17 22:05 Review of Systems ROS Statement: Those systems with pertinent positive or pertinent negative responses have been documented in the HPI. Limitations: ROS unobtainable due to patients medical condition Past Medical History Past Medical History: Prostate Disorder Additional Past Medical History / Comment(s): bipolar History of Any Multi-Drug Resistant Organisms: None Reported Past Surgical History: No Surgical Hx Reported Additional Past Anesthesia/Blood Transfusion Reaction / Comment(s): has not had anesthesia or blood transfusion Past Psychological History: Bipolar, Depression Smoking Status: Current every day smoker Past Alcohol Use History: Abuse Past Drug Use History: Marijuana General Exam Limitations: altered mental status General appearance: in no apparent distress, lethargic Head exam: Present: atraumatic, normocephalic Eye exam: Present: normal appearance, PERRL, EOMI ENT exam: Present: normal exam, mucous membranes moist Neck exam: Present: normal inspection, full ROM Respiratory exam: Present: normal lung sounds bilaterally. Absent: respiratory distress, wheezes Cardiovascular Exam: Present: regular rate, normal rhythm GI/Abdominal exam: Present: soft. Absent: distended, tenderness Extremities exam: Present: normal inspection, normal capillary refill. Absent: pedal edema Back exam: Present: normal inspection, full ROM Neurological exam: Present: alert, oriented X3, CN II-XII intact (On reevaluation patient is alert and oriented, still clinically intoxicated), other. Absent: motor sensory deficit Psychiatric exam: Present: depressed, flat affect Skin exam: Present: warm, dry Course Vital Signs 06/04/17 06/04/17 06/04/17 21:57 22:01 22:07 Temperature 97.3 F L Pulse Rate 83 70 77 Respiratory 16 16 16 Rate Blood Pressure 140/87 137/94 136/82 O2 Sat by Pulse 100 100 97 Oximetry 06/04/17 06/04/17 06/04/17 22:22 22:37 22:52 Temperature Pulse Rate 90 76 74 Respiratory 16 16 16 Rate Blood Pressure 144/93 112/75 166/71 O2 Sat by Pulse 99 99 99 Oximetry 06/04/17 06/04/17 06/04/17 23:07 23:22 23:37 Temperature Pulse Rate 76 78 74 Respiratory 16 16 16 Rate Blood Pressure 123/78 140/88 133/84 O2 Sat by Pulse 100 99 100 Oximetry 06/04/17 06/05/17 23:52 00:07 Temperature Pulse Rate 76 74 Respiratory 16 16 Rate Blood Pressure 119/68 102/55 O2 Sat by Pulse 98 98 Oximetry - Reevaluation(s) Reevaluation #1: 06/05/17 01:10 On reevaluation, patient is more alert, he does state he took approximately 30 Xanax. He denies lithium ingestion on reevaluation. EKG Findings - EKG Comments: EKG Findings:: EKG shows normal sinus rhythm ventricular rate 81, NH interval 178, QRS duration 116, QTC is 471 Medical Decision Making - Medical Decision Making 51-year-old male presenting with likely benzodiazepine overdose. Patient initially states he took lithium, however on reevaluation he denies taking lithium. Laboratory studies to reveal urine positive for only benzodiazepine. Alcohol is also elevated, patient has a knot elevated lithium level, Tylenol and aspirin are also nondetectable. Patient is able to maintain his own airway and is breathing spontaneously. Gastric lavage is performed and did remove a significant amount of pill fragments. Chest x-ray is obtained and his unremarkable. Patient will be admitted for further monitoring, awaiting sobriety, psychiatry is placed on consult. Diagnosis: Benzodiazepine overdose. Suicide attempt. - Lab Data Result diagrams: 06/04/17 22:00 06/04/17 22:00 Lab Results 06/04/17 06/04/17 06/04/17 Range/Units 21:59 22:00 22:00 WBC 7.5 (3.8-10.6) k/uL RBC 4.75 (4.30-5.90) m/uL Hgb 15.8 (13.0-17.5) gm/dL Hct 47.1 (39.0-53.0) % MCV 99.1 (80.0-100.0) fL MCH 33.2 (25.0-35.0) pg MCHC 33.5 (31.0-37.0) g/dL RDW 14.1 (11.5-15.5) % Plt Count 168 (150-450) k/uL Neutrophils % 56 % Lymphocytes % 32 % Monocytes % 4 % Eosinophils % 6 % Basophils % 1 % Neutrophils # 4.2 (1.3-7.7) k/uL Lymphocytes # 2.4 (1.0-4.8) k/uL Monocytes # 0.3 (0-1.0) k/uL Eosinophils # 0.4 (0-0.7) k/uL Basophils # 0.1 (0-0.2) k/uL PT (9.0-12.0) sec INR (<1.2) Sodium 144 (137-145) mmol/L Potassium 4.2 (3.5-5.1) mmol/L Chloride 110 H (98-107) mmol/L Carbon Dioxide 23 (22-30) mmol/L Anion Gap 11 mmol/L BUN 12 (9-20) mg/dL Creatinine 0.80 (0.66-1.25) mg/dL Est GFR (MDRD) Af Amer >60 (>60 ml/min/1.73 sqM) Est GFR (MDRD) Non-Af >60 (>60 ml/min/1.73 sqM) Glucose 76 (74-99) mg/dL POC Glucose (mg/dL) 92 (75-99) mg/dL POC Glu Teamsite Developer ID Cassie Vang Plasma Lactic Acid [place] (0.7-2.0) mmol/L Calcium 9.5 (8.4-10.2) mg/dL Total Bilirubin 0.4 (0.2-1.3) mg/dL AST 23 (17-59) U/L ALT 43 (21-72) U/L Alkaline Phosphatase 58 (38-126) U/L Total Protein 6.7 (6.3-8.2) g/dL Albumin 4.2 (3.5-5.0) g/dL Urine Color Urine Appearance (Clear) Urine pH (5.0-8.0) Ur Specific [place] (1.001-1.035) Urine Protein (Negative) Urine Glucose (UA) (Negative) Urine Ketones (Negative) Urine Blood (Negative) Urine Nitrite (Negative) Urine Bilirubin (Negative) Urine Urobilinogen (<2.0) mg/dL Ur Leukocyte Esterase (Negative) Salicylates <1.0 mg/dL Urine Opiates Screen (NotDetected) Ur Oxycodone Screen (NotDetected) Urine Methadone Screen (NotDetected) Ur Propoxyphene Screen (NotDetected) Acetaminophen <10.0 ug/mL Ur Barbiturates Screen (NotDetected) U Tricyclic Antidepress (NotDetected) Ur Phencyclidine Scrn (NotDetected) Ur Amphetamines Screen (NotDetected) U Methamphetamines Scrn (NotDetected) U Benzodiazepines Scrn (NotDetected) [place] 0.6 mmol/L Urine Cocaine Screen (NotDetected) U Marijuana (THC) Screen (NotDetected) Serum Alcohol 158 mg/dL 06/04/17 06/04/17 06/04/17 Range/Units 22:00 22:00 22:15 WBC (3.8-10.6) k/uL RBC (4.30-5.90) m/uL Hgb (13.0-17.5) gm/dL Hct (39.0-53.0) % MCV (80.0-100.0) fL MCH (25.0-35.0) pg MCHC (31.0-37.0) g/dL RDW (11.5-15.5) % Plt Count (150-450) k/uL Neutrophils % % Lymphocytes % % Monocytes % % Eosinophils % % Basophils % % Neutrophils # (1.3-7.7) k/uL Lymphocytes # (1.0-4.8) k/uL Monocytes # (0-1.0) k/uL Eosinophils # (0-0.7) k/uL Basophils # (0-0.2) k/uL PT 10.8 (9.0-12.0) sec INR 1.1 (<1.2) Sodium (137-145) mmol/L Potassium (3.5-5.1) mmol/L Chloride (98-107) mmol/L Carbon Dioxide (22-30) mmol/L Anion Gap mmol/L BUN (9-20) mg/dL Creatinine (0.66-1.25) mg/dL Est GFR (MDRD) Af Amer (>60 ml/min/1.73 sqM) Est GFR (MDRD) Non-Af (>60 ml/min/1.73 sqM) Glucose (74-99) mg/dL POC Glucose (mg/dL) (75-99) mg/dL POC Glu Teamsite Developer ID Plasma Lactic Acid [place] 1.4 (0.7-2.0) mmol/L Calcium (8.4-10.2) mg/dL Total Bilirubin (0.2-1.3) mg/dL AST (17-59) U/L ALT (21-72) U/L Alkaline Phosphatase (38-126) U/L Total Protein (6.3-8.2) g/dL Albumin (3.5-5.0) g/dL Urine Color Colorless Urine Appearance Clear (Clear) Urine pH 6.0 (5.0-8.0) Ur Specific [place] 1.001 (1.001-1.035) Urine Protein Negative (Negative) Urine Glucose (UA) Negative (Negative) Urine Ketones Negative (Negative) Urine Blood Negative (Negative) Urine Nitrite Negative (Negative) Urine Bilirubin Negative (Negative) Urine Urobilinogen <2.0 (<2.0) mg/dL Ur Leukocyte Esterase Negative (Negative) Salicylates mg/dL Urine Opiates Screen Not Detected (NotDetected) Ur Oxycodone Screen Not Detected (NotDetected) Urine Methadone Screen Not Detected (NotDetected) Ur Propoxyphene Screen Not Detected (NotDetected) Acetaminophen ug/mL Ur Barbiturates Screen Not Detected (NotDetected) U Tricyclic Antidepress Not Detected (NotDetected) Ur Phencyclidine Scrn Not Detected (NotDetected) Ur Amphetamines Screen Not Detected (NotDetected) U Methamphetamines Scrn Not Detected (NotDetected) U Benzodiazepines Scrn Detected H (NotDetected) [place] mmol/L Urine Cocaine Screen Not Detected (NotDetected) U Marijuana (THC) Screen Not Detected (NotDetected) Serum Alcohol mg/dL Critical Care Time Critical Care Time: Yes Total Critical Care Time: 35 Disposition Clinical Impression: Drug overdose Disposition: ADMITTED IP TO THIS [facility] Condition: Stable Referrals: Vaughn Nguyen DO [Primary Care Provider] - 1-2 days Decision Date: 06/05/17 Decision Time: 00:00
[2017-06-05 02:17] VITALS: BMI 27.8
[2017-06-05 09:08] VITALS: RESP 16
[2017-06-05 12:55] VITALS: BP 136/87; PULSE 66; TEMP 98.8
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
== END 2017-06-05 17:57 | DRG 917 ==
LOC: EC 21:55 → 6SEL 06-05 00:59
PROVIDERS: ADMIT Family Medicine; ATTEND Family Medicine
PROC: 3E1G78Z Irrigation of Upper GI using Irrigating Substance, Via Natural or Artificial Opening (ICD-10-PCS; principal; 2017-06-05)
DX: T42.4X2A Poisoning by benzodiazepines, intentional self-harm, initial encounter (principal); G92 Toxic encephalopathy; F13.20 Sedative, hypnotic or anxiolytic dependence, uncomplicated; F13.239 Sedative, hypnotic or anxiolytic dependence with withdrawal, unspecified; F31.9 Bipolar disorder, unspecified; F17.200 Nicotine dependence, unspecified, uncomplicated; F10.20 Alcohol dependence, uncomplicated; N40.0 Benign prostatic hyperplasia without lower urinary tract symptoms; Y90.6 Blood alcohol level of 120-199 mg/100 ml; I45.10 Unspecified right bundle-branch block; Z79.899 Other long term (current) drug therapy
CPT/HCPCS: 36415; 71010; 80053; 80178; 80306; 80320; 81003; 83520; 83605; 85025; 85610; 93005; 94760; 96360; 96361; 99291

== ENCOUNTER 2017-06-05 16:19 | Inpatient (IN) | payer MEDICARE ==
[2017-06-05] MEDS ORDERED: LORazepam 1 MG TAB PO PRN (16:46)
[2017-06-05] MEDS ORDERED: MAGNESIUM HYDROXIDE 2,400 MG/10 ML CUP PO PRN (16:46)
[2017-06-05] MEDS ORDERED: ACETAMINOPHEN TAB 325 MG TAB PO PRN (16:46)
[2017-06-05] MEDS ORDERED: MAG HYDROX/AL HYDROX/SIMETH 30 ML CUP PO PRN (16:46)
[2017-06-05] MEDS ORDERED: ZIPRASIDONE 20 MG VIAL IM PRN (16:46)
[2017-06-05] MEDS ORDERED: LORazepam 2 MG/ML SYRINGE IM PRN (16:48)
[2017-06-06] MEDS: NICOTINE 14MG/24HR PATCH TRANSDERM SCH (09:35)
[2017-06-06] MEDS: clonazePAM 1 MG TAB PO SCH ×2 (11:09→21:28)
[2017-06-06] MEDS: LITHIUM CARBONATE 300 MG CAP PO SCH ×3 (11:09→21:27)
[2017-06-06] MEDS: CARVEDILOL 12.5 MG TAB PO SCH ×2 (12:35→16:07)
[2017-06-06 12:36] VITALS: RESP 16
--- NOTE | 2017-06-06 13:25 | P.HP ---
Psychiatric H&P - . H&P Date: 06/06/17 History & Physical: Allergies Allergy/AdvReac Type Severity Reaction Status Date / Time No Known Allergies Allergy Verified 06/04/17 22:05 Vital Signs Temp 97.8 F 06/06/17 07:27 Pulse 71 06/06/17 07:27 Resp 18 06/06/17 07:27 BP 143/86 06/06/17 07:27 Pulse Ox 98 06/05/17 17:51 Intake & Output 06/05/17 06/06/17 06/06/17 18:59 06:59 18:59 Weight 91.5 kg 06/06/17 08:53 IDENTIFYING DATA: This patient is a 51-year-old male who was admitted to the medical floor after being found by his overly sedated and unarousable. He had gastric lavage after was believed that he had overdosed on Xanax. HISTORY OF PRESENT ILLNESS: Initially the patient reported that his primary care doctor had changed his meds because he was walking with a shuffle. Patient shows a shuffle that did appear as if it could be due to Haldol, however he does not have that shuffle now (nor did he have any signs of EPS or Tardive Dyskinesia when on 3W) but states his doctor told him he should takes Xanax for it, however there is no new prescription for Xanax. He also states that he was not sleeping well when he was discharged from the unit and so he needed to take more of either Xanax or Valium(he had been sleeping 7-8 hours). He states that his primary care doctor reduced both the Valium and Haldol. After I return back to the office and reviewed his chart , the attending doctor had placed her note and that was when I realized that patient had possibly made an overdose. I spoke to Eben patient's , who stated he didn't know how this happened but that he should have known because Julio César did not allow him to go to the counseling or to his doctor's appointment and that on the day of the admission that he was acting differently. They had planned to go down to the pool, but when he went to look for him, he found Julio César in the backyard slumped over with the BB gun next to him. He called 911. When I returned to assess Julio César and asked him to let me know what really happened he then blamed his spouse Eben for having the real problem of drinking. Julio César then says maybe he did take too many Xanax that he doesn't recall. Denies suicidal ideation at the present. Today on the unit he states on his own he stopped Haldol, and reduced or stopped valium, and began to take xanax, states he's been on it for 25 years. He denies suicidal ideation, denies yesterday was a suicide attempt but that he was intoxicated and maybe he took too many Xanax. He agrees he needs to cut down his drinking but still blames Eben for not abstaining. Patient is agreeable to begin to increase lithium and taper off benzo. PAST PSYCHIATRIC HISTORY: This is the patient's third admission here, second admission within 4 weeks. Patient is diagnosed with bipolar disorder type I has been on lithium for years. Has significant benzodiazepine use problem along with etoh.. Here in 2014 elevated lithium level, confused and disoriented but eventually this resolved with a few days of medication. Patient also reports that he has been in other hospitals but he cannot recall their names.. PAST MEDICAL HISTORY: Per record ALLERGIES: No known drug allergies. CHEMICAL DEPENDENCY HISTORY: Alcohol significant use. MENTAL STATUS EXAM: [Patient alert and oriented 3, 06/06/2017, good eye contact , fair groomed in hospital attire. Speech normal volume, rate and production. Coherent, logical and circumstantial thought process. No SILVERIO, no FOI. No TB/TW/ TI Denied auditory and visual hallucinations. Denied paranoid ideation, delusions or IOR. Memory grossly intact Cognition average Mood neutral, irritable, affect full range decreased intensity, congruent with mood. Denies suicidal ideation, denies homicidal ideation. Insight none; Judgment grossly intact for treatment purposes STRENGTHS: Has income and housing. WEAKNESSES: EtOH, noncompliance with care. IMPRESSIONS: 51-year-old male with history of bipolar disorder, most recent manic, alcohol use disorder, severe, with a possible overdose due to marital problems and recent of dog. Patient was initially giving a different history but when confronted with the inconsistencies he agreed that maybe he did take more of his xanax but continues to deny it was a suicide attempt. He is alert and oriented. Bipolar disorder type I, depressed Alcohol use disorder, severe Benzodiazepine use disorder, severe PLAN: Continue inpatient psychiatric admission, for safety purposes, clarification of events that led up to this overdose combined with alcohol. Suicide precautions and every 15 minute checks Restart lithium 300 mg 3 times a day, check blood level in 5 days. DC Valium and Xanax Clonazepam 2 mg BID. Taper over several days. Need to have a family conference to sort out the issues between the partners and to address the alcohol use problem. Milieu therapy . 06/06/17 13:24
--- NOTE | 2017-06-07 07:38 | P.MDCNMH ---
History of Present Illness H&P Date: 06/06/17 This is a 51-year-old male patient of Dr. Nguyen with history of bipolar disorder who was recently admitted from our facility April 2017 secondary to encephalopathy related to benzo withdrawal, patient stayed in the mental health unit and was observed, patient's mentation has cleared however he required at least 2 week stay in the mental health, he was discharged on y 10 on Haldol and lithium however patient discontinued the lithium as patient was pacing and had involuntary movements, Dr. Nguyen has discontinued this. Patient was subsequently seen in the emergency room as he was suspected of having suicide attempt, patient was despondent over the off the dog 3 days ago, his live-in partner which he calls , found him hypersomnolent in the yard, it was reported that he probably took 40 tabs of Xanax 2 mg, and a BB gun was located nearby. ER performed gastric Lavage and did remove significant amount of pill fragments physician suspected 40 tabs at least ingested Patient has clarified this further he denies any suicide attempt, on occasion he would take an extra pill of Xanax there was not a lot of medications missed from his bottle however he stockpilling 2 mg, on a minimum he gets one and a half tablets 2 mg per day up to 6 mg of Xanax per day. His chart summary that was prescribed last time patient was supposed to take Valium 2 mg at bedtime only. Patient denies any social drug use and alcoholism. Patient currently dispenses medications by himself, and he lives in with his live-in partner which he calls" ". Level was 0.6 normal lithium level. Serum alcohol 158 EKG shows normal sinus rhythm with incomplete right bundle branch block. Patient was initially admitted to the medical side and has been stabilized and subsequently transferred to the mental health unit. Patient continues to deny any suicidal ideation. He states he slept well last night. He denies any pain complaints. Coreg will be resumed due to his blood pressure being high. Patient states that he has not been on his Flomax for a long period of time which she stopped on his own because he did not like the side effects. Review of Systems All systems: negative Constitutional: Denies chills, Denies fever Eyes: denies blurred vision, denies pain Ears, nose, mouth and throat: Denies headache, Denies sore throat Cardiovascular: Denies chest pain, Denies shortness of breath Respiratory: Denies cough Gastrointestinal: Denies abdominal pain, Denies diarrhea, Denies nausea, Denies vomiting Musculoskeletal: Denies myalgias Integumentary: Denies pruritus, Denies rash Neurological: Denies numbness, Denies weakness Psychiatric: Denies anxiety, Denies depression Endocrine: Denies fatigue, Denies weight change Past Medical History Past Medical History: Prostate Disorder Additional Past Medical History / Comment(s): bipolar History of Any Multi-Drug Resistant Organisms: None Reported Past Surgical History: No Surgical Hx Reported Past Anesthesia/Blood Transfusion Reactions: No Reported Reaction Additional Past Anesthesia/Blood Transfusion Reaction / Comment(s): has not had anesthesia or blood transfusion Past Psychological History: Bipolar, Depression Smoking Status: Current every day smoker Past Alcohol Use History: Abuse Past Drug Use History: Marijuana - Past Family History Father Family Medical History: Cancer Additional Family Medical History / Comment(s): MELANOMA Mother Family Medical History: Coronary Artery Disease (CAD) Additional Family Medical History / Comment(s): CABG Brother(s) History Unknown: Yes (Alcoholism) Sister(s) History Unknown: Yes (Pancreatic cancer) Medications and Allergies Home Medications Medication Instructions Recorded Confirmed Type Carvedilol [Coreg] 25 mg PO BID 06/06/17 06/06/17 History Haloperidol [Haldol] 5 mg PO HS 06/06/17 06/06/17 History Allergies Allergy/AdvReac Type Severity Reaction Status Date / Time No Known Allergies Allergy Verified 06/04/17 22:05 Physical Exam Vitals: Vital Signs Temp Pulse Resp BP Pulse Ox 06/06/17 07:27 97.8 F 71 18 143/86 06/05/17 17:51 97.5 F L 68 14 144/93 98 Intake and Output 06/05/17 06/06/17 06/06/17 22:59 06:59 14:59 Other: Weight 91.5 kg Gen: This is a 51-year-old male. He is cooperative and appears to be in no acute distress. HEENT: Head is atraumatic, normocephalic. Pupils equal, round. Sclerae is anicteric. NECK: Supple. No JVD. No lymphadenopathy. No thyromegaly. LUNGS: Clear to auscultation. No wheezes or rhonchi. No intercostal retractions. HEART: Regular rate and rhythm. No murmur. ABDOMEN: Soft. Bowel sounds are present. No masses. No tenderness. EXTREMITIES: No pedal edema. No calf tenderness. NEUROLOGICAL: Patient is awake, alert and oriented x3. Cranial nerves 2 through 12 are grossly intact. Cranial Nerve Examination - Cranial Nerves Cranial Nerve II- Optic: Intact Cranial Nerve III- Oculomotor: Intact Cranial Nerve IV- Trochlear: Intact Cranial Nerve V- Trigeminal: Intact Cranial Nerve - Abducens: Intact Cranial Nerve VII- Facial: Intact Cranial Nerve VIII- Auditory: Intact Cranial Nerve IX- Glossopharyngeal: Intact Cranial Nerve X- Vagus: Intact Cranial Nerve XI- Accessory: Intact Cranial Nerve XII- Hypoglossal: Intact Assessment and Plan Plan: 1. Depression recurrent with overdose and history of bipolar disorder. Patient admitted to the mental health unit as a transfer from [facility]. Patient is medically stable at this time. Continue current plan per psychiatrist. 2. Hypertension. Patient will be resumed back on Coreg 25 mg twice daily. 3. Benzodiazepine overdose, stable. 4. Benign prostatic hypertrophy. Patient states he stopped taking Flomax on his own. This will not be resumed. 5. Tobacco use and dependence. Nicotine patch. Impression and plan of care have been directed as dictated by the signing physician. Elizabeth العلي nurse practitioner acting as scribe for signing physician.
[2017-06-07] MEDS: LITHIUM CARBONATE 300 MG CAP PO SCH ×3 (09:00→21:03)
[2017-06-07] MEDS: NICOTINE 14MG/24HR PATCH TRANSDERM SCH (09:00)
[2017-06-07] MEDS: CARVEDILOL 12.5 MG TAB PO SCH ×2 (09:00→17:45)
[2017-06-07] MEDS: clonazePAM 1 MG TAB PO SCH ×2 (09:06→21:03)
--- NOTE | 2017-06-07 10:26 | P.PN ---
Progress Note - Text INTERVERAL HISTORY: Patient discussed at treatment team meeting, review of record, met with patient. Staff reports the patient remains visible on the unit, no problems no behavioral aggression. Patient requested to be discharged AMA yesterday morning. Patient seen in the hallway walking agreed to come to the office. States that he slept very deeply last night for about an hour woke up thought that it was about 5 AM but it was only 1 hour sleep states this seemed to reoccur but that he feels rested today. No anxiety. Discussed the upcoming family meeting with his Eben, agenda/goal to work out what's happening at home with respect to the alcohol use and the benzodiazepine misuse. Patient reports that he and Eben have had periods of being sober from alcohol and that it was a good time and he does want that to occur again. He agreed to try ReVia as a way to help not drink alcohol but it will be dependent on his insurance if he can afford it in outpatient. Patient denies depression, denies suicidal ideation. MENTAL STATUS EXAM: Patient alert and oriented 3, 06/07/2017, good eye contact , fair groomed in street clothing. Speech normal volume, rate and production. Coherent, logical and circumstantial thought process. No SILVERIO, no FOI. No TB/TW/ TI Denied auditory and visual hallucinations. Denied paranoid ideation, delusions or IOR. Memory grossly intact Cognition average Mood neutral, euthymic, affect full range decreased intensity, congruent with mood. Denies suicidal ideation, denies homicidal ideation. Insight limited; Judgment limited IMPRESSIONS: 51-year-old male with history of bipolar disorder, most recent manic, alcohol use disorder, severe, with a possible overdose due to marital problems and recent of dog. Patient recognizing what alcohol is doing, and is expressing desire to stop. Patient does not have any intention of inpatient rehab. No no verbal or physical aggression. Patient is alert and oriented. Bipolar disorder type I, MRE manic, resolved Alcohol use disorder, severe Benzodiazepine use disorder, severe Partner relationship problem PLAN: Continue inpatient psychiatric admission, for safety purposes, clarification of events that led up to this overdose combined with alcohol. Suicide precautions and every 15 minute checks Restart lithium 300 mg 3 times a day, check blood level tomorrow morning Reduce Clonazepam 1 mg BID. Taper over several days, we'll need to give him outpatient prescription for a few tablets if Eben is able to remove all of the Xanax that they have at home. Trial of ReVia 50 mg now Need to have a family conference to sort out the issues between the partners and to address the alcohol use problem. Milieu therapy Will allow 72 hours and then discharge AMA .
[2017-06-07] MEDS: NALTREXONE HCL 50 MG TAB PO SCH (12:15)
[2017-06-08 00:11] VITALS: BP 121/75; PULSE 61; TEMP 98.2
[2017-06-08] MEDS: CARVEDILOL 12.5 MG TAB PO SCH (08:29)
[2017-06-08] MEDS: NALTREXONE HCL 50 MG TAB PO SCH ×2 (08:29→08:34)
[2017-06-08] MEDS: LITHIUM CARBONATE 300 MG CAP PO SCH (08:29)
[2017-06-08] MEDS: clonazePAM 1 MG TAB PO SCH (08:30)
[2017-06-08] MEDS: NICOTINE 14MG/24HR PATCH TRANSDERM SCH (08:35)
--- NOTE | 2017-06-08 08:39 | P.DS ---
Providers Date of admission: 06/05/17 17:29 Expected date of discharge: 06/08/17 Attending physician: Alissa Martinez MD Consults: 06/05/17 16:46 Consult Physician Routine Consulting Provider: Marya Ngo Consult Reason/Comments: follow up H & P Do you want consulting provider notified?: Yes Primary care physician: [facility] Course: BRIEF ADMISSION HISTORY: Patient was admitted to the hospital after his found him slumped over nonresponsive in their backyard. Patient was brought to the emergency room where he had gastric lavage and the pills were found in his stomach along with alcohol of 0.158. It was unclear if the patient had made a suicide attempt and he was admitted to a medical floor. Patient denied suicidal ideation adamantly and convincingly however his was worried that there was an attempt and patient agreed to a voluntary admission to 3 . HOSPITAL COURSE: Patient was visible on the unit throughout his stay. On the first day he put in a AMA notice. With further information gathered it was clear that the patient had stopped the medication that he was discharged on 10 days previously. Initially he stated that he was having a shuffling gait and that his primary care doctor told him to take Xanax. This was reviewed and this was not the case patient stop the Haldol he also continued to take Valium along with going into his medications at home of Xanax. There is no fight or precipitating event according to patient and his that they were getting ready to go to a pool green party when came out to the yard and found patient slumped over. Patient believes that he may have taken more Xanax than he actually intended to. Patient continued to deny suicide ideation adamantly and convincingly. After this hospitalization and the one just previous to it and it was determined that alcohol is a major problem for the patient. We recommended rehab he declined. We restarted his lithium dose the way that he prefers 300 mg 3 times a day we requested a blood level on the day of discharge even though it was not a steady state level. We had a meeting with his and his mother patient and his got into an argument over alcohol patient is expecting his to make changes in order for the patient to make changes. It was pointed out that the patient has to make his changes irrespective of what his does with respect to alcohol. Patient has an appointment today with his counselor, we were also able to get an appointment with the psychiatrist at [facility], Dr. Butler for July 07. Patient was instructed multiple times about the use of Xanax that it is dangerous or any benzodiazepine with alcohol. Patient's said he got rid of all of the Xanax in the house, however we know that the patient has 2-3 refills at the pharmacy that he can access that was given to him by his primary care doctor. Patient was started on clonazepam with the taper down he will be given a few tablets on discharge to continue the tapering. Patient is informed how to taper and to not combined with alcohol. Patient has requested to be discharged AMA we have kept him for 72 hours and at this point we cannot keep him longer on a clinical basis, we recommended that he revoke this and stated that longer so we could complete the benzodiazepine taper he refused. He is in fair condition, discharge AMA DISCHARGE DIAGNOSES: Alcohol use disorder, severe Sedative hypnotic use disorder, severe Bipolar type I disorder,MRE manic, stable Pertinent Studies: none Procedures: none Patient Condition at Discharge: Fair Plan - Discharge Summary New Discharge Prescriptions: [place] Carbonate 300 mg PO TID #90 cap Naltrexone HCl [Revia] 50 mg PO DAILY #30 tab Continue Tamsulosin [Flomax] 0.4 mg PO PC-BRKFST #30 cap Carvedilol [Coreg] 25 mg PO BID Discontinued Diazepam [Valium] 2 mg PO HS #14 tab [place] Carbonate 300 mg PO HS #14 cap Benztropine Mesylate [Cogentin] 1 mg PO BID #60 tablet Haloperidol [Haldol] 5 mg PO HS Discharge Medication List Tamsulosin [Flomax] 0.4 mg PO PC-BRKFST #30 cap 05/22/17 [Rx] Carvedilol [Coreg] 25 mg PO BID 06/06/17 [History] [place] Carbonate 300 mg PO TID #90 cap 06/08/17 [Rx] Naltrexone HCl [Revia] 50 mg PO DAILY #30 tab 06/08/17 [Rx] Follow up Appointment(s)/Referral(s): Vidible Morrison [Outside] - 06/08/17 1:00 pm (06/08/17 w/ Richelle 07/03 @ 12:[address] Caraballo and on wait list ) Discharge Disposition: Left Against Medical Advice
[2017-06-08] MEDS ORDERED: clonazePAM 0.5 MG TAB PO SCH (09:00)
== END 2017-06-08 10:07 | disposition left against medical advice (07) | DRG 885 ==
LOC: 3MHU 17:29
PROVIDERS: ADMIT Psychiatry & Neurology Addiction Medicine; ATTEND Psychiatry & Neurology Addiction Medicine
DX: F31.9 Bipolar disorder, unspecified (principal); F13.20 Sedative, hypnotic or anxiolytic dependence, uncomplicated; I10 Essential (primary) hypertension; F10.20 Alcohol dependence, uncomplicated; T42.4X1A Poisoning by benzodiazepines, accidental (unintentional), initial encounter; Y90.6 Blood alcohol level of 120-199 mg/100 ml; F17.200 Nicotine dependence, unspecified, uncomplicated; Z79.899 Other long term (current) drug therapy; Z81.1 Family history of alcohol abuse and dependence; N40.0 Benign prostatic hyperplasia without lower urinary tract symptoms; Z91.19 Patient's noncompliance with other medical treatment and regimen
CPT/HCPCS: 80178

== ENCOUNTER → 2017-06-20 | Outpatient (CLI) | payer SELFPAY ==
--- NOTE | 2017-06-20 15:08 | NM ---
EXAMINATION TYPE: NM hepatobiliary w EF DATE OF EXAM: 06/20/2017 COMPARISON: NONE HISTORY: Right upper quadrant pain per order. Additional symptoms of epigastric pain, increased appet ite, heartburn, and nausea for patient. TECHNIQUE: After the intravenous administration of 5.08 mCi Tc 99m Mebrofenin hepatobiliary scintigra phy is performed. Immediate images post injection. FINDINGS: There is satisfactory initial accumulation of tracer by the liver. The gallbladder is visualized wit hin 40 minutes. The small bowel activity is noted within by minutes. At one hour 8 ounces of oral e nsure plus is given to mimic CCK and gallbladder ejection fraction is calculated at 91 %, not deviate d from the normal range. Therefore there is no scintigraphic evidence of cystic or common bile duct obstruction to suggest acute cholecystitis. IMPRESSION: Ejection fraction is 91%, some consider this abnormal or a hyperkinetic response.
== END | disposition home or self-care (01) ==
LOC: RADNMMAIN 12:45
PROVIDERS: ATTEND Family Medicine
DX: R10.11 Right upper quadrant pain (principal)
CPT/HCPCS: 78226; A9537

== ENCOUNTER 2017-06-27 14:34 | Inpatient (IN) | payer MEDICARE, OTHER ==
--- NOTE | 2017-06-27 15:03 | ED ---
General Adult HPI - General Stated complaint: Mental Health Time Seen by Provider: 06/27/17 14:35 - History of Present Illness Initial comments: Patient is 51 yo male with PMH of bipolar disorder who presents to the ED in Police custody for evaluation of delusional thoughts. Patient introduces himself as God, when asked why he is at the hospital he states, "that is for you to figure out." He states that Allan Sinclair is his soul mate. He reports that the old God did not want people to look upon his face , however he is the new God and he wants eveyone to look upon him. Per patient's significant other the patient has been getting "amped up" for a couple of days, he has been insisting that he is Vic or God. Today he became very agitated, friends were at the home and they decided that they didn't feel the patient was safe to be home so they called 911. - Related Data Home Medications Medication Instructions Recorded Confirmed Carvedilol [Coreg] 25 mg PO BID 06/06/17 06/27/17 Previous Rx's Medication Instructions Recorded Tamsulosin [Flomax] 0.4 mg PO PC-BRKFST #30 cap 05/22/17 [place] Carbonate 300 mg PO TID #90 cap 06/08/17 Naltrexone HCl [Revia] 50 mg PO DAILY #30 tab 06/08/17 Allergies Allergy/AdvReac Type Severity Reaction Status Date / Time No Known Allergies Allergy Verified 06/27/17 14:54 Review of Systems ROS Statement: Those systems with pertinent positive or pertinent negative responses have been documented in the HPI. Review of systems limited by patients agitation and delusions, he answers most questions and insists he is God and there can be nothing wrong with him. When asked if he has chest pain, patient denied any and stated "I am the heart" no one has heart problems, no one will ever have heart problems again. ROS Other: All systems not noted in ROS Statement are negative. Constitutional: Denies: fever Respiratory: Denies: cough Cardiovascular: Denies: chest pain Endocrine: Denies: fatigue Gastrointestinal: Denies: abdominal pain, nausea, vomiting Genitourinary: Denies: dysuria Musculoskeletal: Denies: back pain Skin: Denies: rash, lesions Neurological: Denies: headache, weakness Psychiatric: Reports: other (Delusional) Hematological/Lymphatic: Denies: easy bleeding, easy bruising Past Medical History Past Medical History: Prostate Disorder Additional Past Medical History / Comment(s): bipolar History of Any Multi-Drug Resistant Organisms: None Reported Past Surgical History: No Surgical Hx Reported Past Anesthesia/Blood Transfusion Reactions: No Reported Reaction Additional Past Anesthesia/Blood Transfusion Reaction / Comment(s): has not had anesthesia or blood transfusion Past Psychological History: Bipolar, Depression Smoking Status: Current every day smoker Past Alcohol Use History: Abuse Past Drug Use History: Marijuana - Past Family History Father Family Medical History: Cancer Additional Family Medical History / Comment(s): MELANOMA Mother Family Medical History: Coronary Artery Disease (CAD) Additional Family Medical History / Comment(s): CABG Brother(s) History Unknown: Yes (Alcoholism) Sister(s) History Unknown: Yes (Pancreatic cancer) General Exam Limitations: altered mental status General appearance: alert, anxious Head exam: Present: atraumatic, normocephalic Eye exam: Present: PERRL (pupils 3mm bilaterally) ENT exam: Present: normal exam Neck exam: Present: normal inspection, full ROM Respiratory exam: Present: normal lung sounds bilaterally. Absent: respiratory distress Cardiovascular Exam: Present: regular rate, normal rhythm, normal heart sounds. Absent: bradycardia, tachycardia, irregular rhythm GI/Abdominal exam: Present: soft. Absent: distended, tenderness, guarding, rebound, rigid Rectal exam: Present: deferred Extremities exam: Present: normal inspection, full ROM Neurological exam: Present: alert Psychiatric exam: Present: agitated, other (delusional) Skin exam: Present: warm, dry, intact, normal color. Absent: rash, cyanosis, diaphoretic, erythema, urticaria, vesicles, petechiae, pallor, mottled, abrasion Course Vital Signs 06/27/17 06/27/17 14:34 16:38 Temperature 98.7 F 97.9 F Pulse Rate 79 83 Respiratory 18 16 Rate Blood Pressure 164/99 141/85 O2 Sat by Pulse 94 L 99 Oximetry Medical Decision Making - Medical Decision Making Patient arrived in police custody, agitated and labile Patient restrained for patient and staff safety IM ativan ordered for agitation Breath alcohol negative - patient clear for psych evaluation Patient persistently agitated and yelling, IM haldol ordered Patient was evaluated by psych, patient refused to be admitted voluntarily A certification was signed by myself at 4:30 PM Patient transferred to psychiatric facility for acute delusional thoughts - Lab Data Lab Results 06/27/17 Range/Units 14:57 Urine Opiates Screen Not Detected (NotDetected) Ur Oxycodone Screen Not Detected (NotDetected) Urine Methadone Screen Not Detected (NotDetected) Ur Propoxyphene Screen Not Detected (NotDetected) Ur Barbiturates Screen Not Detected (NotDetected) U Tricyclic Antidepress Not Detected (NotDetected) Ur Phencyclidine Scrn Not Detected (NotDetected) Ur Amphetamines Screen Not Detected (NotDetected) U Methamphetamines Scrn Not Detected (NotDetected) U Benzodiazepines Scrn Detected H (NotDetected) Urine Cocaine Screen Not Detected (NotDetected) U Marijuana (THC) Screen Not Detected (NotDetected) Disposition Clinical Impression: Delusion, Psychosis Disposition: TRANSFER TO PSYCH HOSP/UNIT Time of Disposition: 16:30
[2017-06-27] MEDS ORDERED: LORazepam 2 MG/ML SYRINGE IM STA (15:09)
[2017-06-27] MEDS ORDERED: HALOPERIDOL LACTATE 5 MG/ML 1 ML VIAL IM STA (15:25)
[2017-06-27] MEDS ORDERED: MAGNESIUM HYDROXIDE 2,400 MG/10 ML CUP PO PRN (16:47)
[2017-06-27] MEDS ORDERED: ACETAMINOPHEN TAB 325 MG TAB PO PRN (16:47)
[2017-06-27] MEDS ORDERED: ZIPRASIDONE 20 MG VIAL IM PRN (16:47)
[2017-06-27] MEDS ORDERED: MAG HYDROX/AL HYDROX/SIMETH 30 ML CUP PO PRN (16:47)
[2017-06-27] MEDS ORDERED: LORazepam 2 MG/ML SYRINGE IM PRN (16:52)
[2017-06-27] MEDS: CARVEDILOL 12.5 MG TAB PO SCH (17:33)
[2017-06-27 19:30] LABS: Basophils % (A) 0 %; CH 32.8; CHCM 32.8; Eosinophils # (A) 0.5 k/uL (0-0.7); Eosinophils % (A) 5 %; HCT 45.7 % (39.0-53.0); HDW 2.24; HGB 14.7 gm/dL (13.0-17.5); Luc # (Auto) 0.09; Luc % (Auto) 1; Lymphocytes # (A) 1.4 k/uL (1.0-4.8); Lymphocytes % (A) 15 %; MCH 32.3 pg (25.0-35.0); MCHC 32.2 g/dL (31.0-37.0); MCV 100.5 fL (80.0-100.0); Mean Platelet Volume 8.5; Monocytes # (A) 0.3 k/uL (0-1.0); Monocytes % (A) 4 %; Neutrophils # (A) 6.8 k/uL (1.3-7.7); Neutrophils % (A) 75 %; RBC 4.55 m/uL (4.30-5.90); RDW 13.9 % (11.5-15.5); WBC 9.1 k/uL (3.8-10.6); WBC (Perox) 9.35
[2017-06-27 19:42] LABS: ALT 30 U/L (21-72); AST 17 U/L (17-59); Alkaline Phosphatase 67 U/L (38-126); Anion Gap 9 mmol/L; Blood Urea Nitrogen 11 mg/dL (9-20); Calcium 9.4 mg/dL (8.4-10.2); Carbon Dioxide 26 mmol/L (22-30); Chloride 107 mmol/L (98-107); Glucose 137 mg/dL (74-99); Lithium 0.5 mmol/L; Non-African American GFR(MDRD) >60 (>60 ml/min/1.73 sqM); Potassium 4.4 mmol/L (3.5-5.1); Sodium 142 mmol/L (137-145); Total Bilirubin 0.3 mg/dL (0.2-1.3)
[2017-06-27] MEDS: LORazepam 1 MG TAB PO PRN (20:22)
[2017-06-27] MEDS: LITHIUM CARBONATE 300 MG CAP PO SCH (20:22)
[2017-06-28] MEDS: TAMSULOSIN 0.4 MG CAP.ER.24H PO SCH (08:36)
[2017-06-28] MEDS: NALTREXONE HCL 50 MG TAB PO SCH (08:37)
[2017-06-28] MEDS: CARVEDILOL 12.5 MG TAB PO SCH ×2 (08:37→17:34)
[2017-06-28] MEDS: LITHIUM CARBONATE 300 MG CAP PO SCH ×2 (08:37→20:55)
[2017-06-28] MEDS: LORazepam 1 MG TAB PO PRN ×2 (09:56→20:57)
[2017-06-28] MEDS ORDERED: LITHIUM CARBONATE 300 MG CAP PO STA (12:07)
--- NOTE | 2017-06-28 14:44 | P.MDCNMH ---
History of Present Illness H&P Date: 06/28/17 This is a 51-year-old male patient of Dr. Nguyen with history of bipolar disorder, benign prostatic hypertrophy, hypertension. Patient is stating that he has [age] years old and that he is Vic Fred and he is in [place] with wings. He denies any homicidal thoughts. He denies any depression. He states he is sleeping adequately. Patient has been admitted to the mental health unit. TSH is 1.510. Urine drug screen will was positive for benzodiazepines. [place] level 0.5. Review of Systems All systems: negative Constitutional: Denies chills, Denies fever Eyes: denies blurred vision, denies pain Ears, nose, mouth and throat: Denies headache, Denies sore throat Cardiovascular: Denies chest pain, Denies shortness of breath Respiratory: Denies cough Gastrointestinal: Denies abdominal pain, Denies diarrhea, Denies nausea, Denies vomiting Musculoskeletal: Denies myalgias Integumentary: Denies pruritus, Denies rash Neurological: Denies numbness, Denies weakness Psychiatric: Reports confusion, Denies anxiety, Denies depression Endocrine: Denies fatigue, Denies weight change Past Medical History Past Medical History: Prostate Disorder Additional Past Medical History / Comment(s): bipolar History of Any Multi-Drug Resistant Organisms: None Reported Past Surgical History: No Surgical Hx Reported Past Anesthesia/Blood Transfusion Reactions: No Reported Reaction Additional Past Anesthesia/Blood Transfusion Reaction / Comment(s): has not had anesthesia or blood transfusion Past Psychological History: Bipolar, Depression Smoking Status: Current every day smoker Past Alcohol Use History: Abuse Past Drug Use History: Marijuana - Past Family History Father Family Medical History: Cancer Additional Family Medical History / Comment(s): MELANOMA Mother Family Medical History: Coronary Artery Disease (CAD) Additional Family Medical History / Comment(s): CABG Brother(s) History Unknown: Yes (Alcoholism) Sister(s) History Unknown: Yes (Pancreatic cancer) Medications and Allergies Home Medications Medication Instructions Recorded Confirmed Type Carvedilol [Coreg] 25 mg PO BID 06/06/17 06/27/17 History Allergies Allergy/AdvReac Type Severity Reaction Status Date / Time No Known Allergies Allergy Verified 06/27/17 14:54 Physical Exam Vitals: Vital Signs Temp Pulse Pulse Resp BP BP Pulse Ox 06/28/17 08:38 73 18 136/84 06/27/17 16:47 97.6 F 75 15 130/82 98 06/27/17 16:38 97.9 F 83 16 141/85 99 06/27/17 14:34 98.7 F 79 18 164/99 94 L Gen: This is a 51-year-old male. He is cooperative and appears to be in no acute distress. HEENT: Head is atraumatic, normocephalic. Pupils equal, round. Sclerae is anicteric. NECK: Supple. No JVD. No lymphadenopathy. No thyromegaly. LUNGS: Clear to auscultation. No wheezes or rhonchi. No intercostal retractions. HEART: Regular rate and rhythm. No murmur. ABDOMEN: Soft. Bowel sounds are present. No masses. No tenderness. EXTREMITIES: No pedal edema. No calf tenderness. NEUROLOGICAL: Patient is awake, alert and oriented x3. Patient is confused and delusional. Cranial nerves 2 through 12 are grossly intact. Cranial Nerve Examination - Cranial Nerves Cranial Nerve II- Optic: Intact Cranial Nerve III- Oculomotor: Intact Cranial Nerve IV- Trochlear: Intact Cranial Nerve V- Trigeminal: Intact Cranial Nerve - Abducens: Intact Cranial Nerve VII- Facial: Intact Cranial Nerve VIII- Auditory: Intact Cranial Nerve IX- Glossopharyngeal: Intact Cranial Nerve X- Vagus: Intact Cranial Nerve XI- Accessory: Intact Cranial Nerve XII- Hypoglossal: Intact Results CBC & Chem 7: 06/27/17 19:14 06/27/17 19:14 Labs: Abnormal Lab Results - Last 24 Hours (Table) 06/27/17 06/27/17 06/27/17 Range/Units 14:57 19:14 19:14 MCV 100.5 H (80.0-100.0) fL Glucose 137 H (74-99) mg/dL Total Protein 6.0 L (6.3-8.2) g/dL U Benzodiazepines Scrn Detected H (NotDetected) Assessment and Plan Plan: 1. Acute psychosis in a patient with history of bipolar disorder. Patient admitted to the mental health unit. Continue current plan of care. 2. Benign prostatic hypertrophy. Continue Flomax. 3. Hypertension. Continue Coreg. Impression and plan of care have been directed as dictated by the signing physician. Elizabeth العلي nurse practitioner acting as scribe for signing physician.
[2017-06-28] MEDS ORDERED: LITHIUM CARBONATE ER 450 MG TABLET.ER PO SCH (21:00)
[2017-06-29] MEDS ORDERED: LORazepam 1 MG TAB PO STA (01:18)
[2017-06-29] MEDS: NALTREXONE HCL 50 MG TAB PO SCH (08:12)
[2017-06-29] MEDS: TAMSULOSIN 0.4 MG CAP.ER.24H PO SCH (08:12)
[2017-06-29] MEDS: CARVEDILOL 12.5 MG TAB PO SCH ×2 (08:13→17:44)
[2017-06-29] MEDS: LITHIUM CARBONATE 300 MG CAP PO SCH ×2 (08:13→20:33)
[2017-06-29] MEDS: LORazepam 1 MG TAB PO PRN (08:15)
--- NOTE | 2017-06-29 09:28 | HP ---
DATE OF SERVICE: 06/28/2017 DATE OF ADMISSION: 06/27/17 IDENTIFYING DATA: The patient is a 51 -year-old male. He resides with his . He was brought to the emergency room by police. CHIEF COMPLAINT: The patient was delusional. He was making statements about being God and making other unusual statements. He acknowledged not sleeping and episodes of agitation leading up to his hospitalization. HISTORY OF PRESENT ILLNESS: The patient has had [facility] psychiatric issues. He has had a diagnosis of bipolar disorder. He has had a number of psychiatric hospitalizations including two recent admissions in this facility. I refer the reader to admission notes and discharge summary of Dr. Martinez of 05/11 and for details. The patient reports history of bipolar disorder going back to age 28. It is noted that in the last two recent admissions, alcohol was involved. The patient reports currently that he was not drinking. The patient described side effects and problems with various psychotropic medications other than lithium which is what he is currently on. He says that is the only medicine that has helped him remain relatively stable. He notes that over the years, he will have episodes of hypomania and carissa. He believes that the mood difficulties he has has not been consistently connected with substance abuse issues. He described recent manic symptoms including decreased need for sleep, high energy, racing thoughts, flight of ideas, hyperreligiosity and hypersexuality. He reports that he had been taking his medications consistently. His lithium level on admission was 0.5. He was admitted for further evaluation. As per Dr. Cardenas two recent psychiatric admission notes. PAST MEDICAL HISTORY: The patient reports no chronic or current general health complaints. Further medical history and review of systems as per medical consultation, Ms. Severiano GANDHI. FAMILY AND SOCIAL HISTORY: As per recent admission discharge notes of Dr. Martinez. MENTAL STATUS EXAM: The patient was casually dressed and cooperative. Eye contact was fairly good. He was somewhat restless. His speech was clear. He answered questions with appropriate responses. His thoughts were coherent and goal directed. He did not exhibit flight of ideas, loose association or pressured speech. His affect was somewhat constricted. His mood reserved. He did not clearly exhibit hypomanic, manic or depressive mood. It was difficult to say if he was distressed. Physical examination as per medical consultation of Ms. Severiano NP. ASSESSMENT: This 51 -year-old male is diagnosed with bipolar disorder. He continues to have difficulties with mood instability, primarily hypomanic and manic episodes. I refer the reader to Dr. Martinez for further assessment. DIAGNOSES: Bipolar affective disorder, manic phase. RECOMMENDATIONS AND PLAN: The patient will be admitted for comprehensive medical psychiatric and psychosocial evaluation. We will engage the patient in individual and group therapeutic activity. I will continue the patient on [place]. He is on a relatively low dose. I will increase lithium to 600 mg in the morning and 900 mg in the evening. We will get lithium level in two days. I had a lengthy discussion with the patient regarding lithium therapy, side effects and risk factors. We had an extensive discussion related to lithium toxicity. I also reviewed some alternative treatment options that might be a consideration. We will continue to focus on stabilization and discharge planning. MTDD
--- NOTE | 2017-06-29 18:41 | PN ---
DATE OF SERVICE: 06/29/2017 CHIEF COMPLAINT: The patient was delusional. He was making statements about being God and making other unusual statements. He acknowledged not sleeping and having episodes of agitation leading up to his hospitalization. INTERVAL HISTORY: The patient has been doing fairly well. On admission on the the patient was showing moderate degree of hypomanic or manic symptoms. He was intense. He was quite active. He was hyperverbal. When I saw him yesterday in the afternoon he was doing much better. He had a calmer manner. He was able to interact appropriately. His thoughts were clear. He had a quiet evening last night. He was having difficulty falling asleep and was given Ativan 1 mg. He was able to sleep after that and slept through the night. Today he has been up and about. He comes out in the day area. He will interact some with others. He has been attending groups mostly. He has a quiet manner. His CIWA scores yesterday and today have all been below 6. He does show some mild hypertension with the highest systolic pressure being 142 and the highest diastolic pressure being 90. His blood pressure this morning was 145/84. It is noted that the patient had consumed quite a bit of alcohol prior to admission. The patient states that he has tended to use alcohol in more of a binge fashion with reasonable periods without drinking any alcohol at all. Our social research assistant made contact with the patient's . He stated that in context with the patient, the patient seems to be doing much better. The noted that a problem that he is concerned with is that the patient has not been consistent in taking his medications. It is noted that the patient gets occasional lithium levels from his primary care physician, though the levels are not drawn after an extended number of hours off the medication with the standard being approximately 12 hours from the last dose. Typically he will take a morning dose of lithium and around noon time maybe in the family physician's office where a blood draw might be done. The patient has not had change in his general health. He tolerates his psychotropic medications. MENTAL STATUS: Patient had good eye contact. Psychomotor activity was slowed. Speech was somewhat monotone and soft. He answered questions appropriately. His thoughts were clear. He was not too spontaneous though he was interactive. His affect was a little constricted. His mood was quiet. He did not appear to be distressed. There was no indication of hypomanic or manic symptoms. ASSESSMENT: I will continue the current diagnosis and treatment plan. I will continue psychotropic medications the same and we will get a lithium level in the morning. I had an extensive discussion with the patient regarding issues related to lithium including lithium toxicity, assessing blood levels and continuous churn buttermaker management issues. The patient appears to be making progress. I would anticipate discharge early in the week. Will coordinate with outpatient resources for follow up care. CHAITANYA
[2017-06-30] MEDS: TAMSULOSIN 0.4 MG CAP.ER.24H PO SCH (09:02)
[2017-06-30] MEDS: NALTREXONE HCL 50 MG TAB PO SCH (09:02)
[2017-06-30] MEDS: LITHIUM CARBONATE 300 MG CAP PO SCH ×2 (09:02→20:51)
[2017-06-30] MEDS: CARVEDILOL 12.5 MG TAB PO SCH ×2 (09:02→18:03)
[2017-06-30] MEDS: LORazepam 1 MG TAB PO PRN ×2 (09:04→20:51)
--- NOTE | 2017-06-30 16:46 | PN ---
DATE OF SERVICE: 06/30/2017 CHIEF COMPLAINT: The patient was delusional. He was making statements about being God and making other unusual statements. He acknowledged not sleeping and having episodes of agitation leading up to his hospitalization. INTERVAL HISTORY: Patient has been doing fairly well. He said he had some difficulty getting to sleep last night; he only slept about 4 hours, which he says actually is good for him. He has been up and about. He attends groups. He wanders about the unit. He will interact a little bit with others, though he does tend to keep to himself. He seems to be showing some improvement in his mood. He has not had significant hypomanic, manic or depressive symptoms. He does seem to be reserved in his manner. He has not had change in his general health. He tolerates his psychotropic medications. MENTAL STATUS: Patient gave good eye contact. Psychomotor activity was a little restless. Speech was clear. He answered questions with brief responses. He was somewhat spontaneous and interactive. His affect was constricted. His mood was reserved. He did not appear to be significantly distressed. ASSESSMENT: I will continue the current diagnosis and treatment plan. I will continue psychotropic medications the same. His lithium level this morning was 0.7, which is up from 0.5 on 06/27. I will repeat a lithium level in the morning. I would look to possibly titrate up further on his lithium, depending on the results of the lab tests. We will set up another family meeting with the patient and his . Will continue to focus on stabilization and discharge planning. CHAITANYA
[2017-06-30] MEDS: traZODone HCL 100 MG TAB PO SCH (20:51)
[2017-07-01] MEDS: SODIUM CHLORIDE 0.65% NASAL SPRAY 44 ML BTL NASAL PRN ×4 (03:25→21:03)
[2017-07-01] MEDS: LORazepam 1 MG TAB PO PRN ×2 (04:30→21:02)
[2017-07-01] MEDS: CARVEDILOL 12.5 MG TAB PO SCH ×2 (08:51→16:42)
[2017-07-01] MEDS: LITHIUM CARBONATE 300 MG CAP PO SCH ×2 (08:51→21:02)
[2017-07-01] MEDS: NALTREXONE HCL 50 MG TAB PO SCH (08:52)
[2017-07-01] MEDS: TAMSULOSIN 0.4 MG CAP.ER.24H PO SCH (08:52)
--- NOTE | 2017-07-01 17:20 | P.PN ---
Progress Note - Text Interval history: Patient seen in cross coverage today for Dr. Riley. Reports is feeling much better with his mood. He feels like he is responding well to the titration of lithium. His level today is noted to be 0.7, therapeutic. He discusses his history of bipolar disorder and this hospitalization recently was related to a manic episode. He was exhibiting some hyperreligiosity. He has a family meeting tomorrow scheduled with his . Mental status exam: He is alert and cooperative with the interview. His speech is fluent, not rapid or pressured. Thought processes organized. His mood is improved. He denies any thoughts of harm to self or others. No evidence of active psychosis. Plan: We'll maintain current psychotropic medication regimen. We'll continue to monitor for any medication side effects monitor his ongoing response. Family meeting is scheduled for tomorrow. Discharge planning is being looked at for Monday.
[2017-07-01] MEDS: traZODone HCL 100 MG TAB PO SCH (21:02)
[2017-07-02] MEDS: SODIUM CHLORIDE 0.65% NASAL SPRAY 44 ML BTL NASAL PRN ×3 (02:45→20:38)
[2017-07-02] MEDS: LORazepam 1 MG TAB PO PRN ×3 (02:45→20:38)
[2017-07-02 07:01] VITALS: TEMP 98.1
[2017-07-02] MEDS: NALTREXONE HCL 50 MG TAB PO SCH (08:36)
[2017-07-02] MEDS: TAMSULOSIN 0.4 MG CAP.ER.24H PO SCH (08:36)
[2017-07-02] MEDS: LITHIUM CARBONATE 300 MG CAP PO SCH ×2 (08:37→20:38)
[2017-07-02] MEDS: CARVEDILOL 12.5 MG TAB PO SCH ×2 (08:37→17:23)
--- NOTE | 2017-07-02 13:40 | P.PN ---
Progress Note - Text Interval history: Patient seen in cross coverage today for Dr. Riley. He reports that he slept 7 hours last night. He is eating well. He was found in the dining room eating lunch. His mood is stabilized well. He states his delusional thought content has resolved. He is a really meeting with his at 2 PM today. He reports feeling ready for discharge tomorrow. Mental status exam: He is alert and cooperative with the interview. His speech is fluent, not rapid or pressured. Thought processes organized. His affect shows range. He denies any thoughts of harm to self or others. He feels that his mood is stabilized. There is no evidence of any manic like symptoms. He has not verbalize any delusions or hallucinations. Plan: We'll maintain current psychotropic medication regimen. If not ordered we 'll order a lithium level for tomorrow. There is discharge planning it sounds for tomorrow. Family meeting is scheduled for today. Dr. Riley resume his care tomorrow.
[2017-07-02 17:25] VITALS: RESP 18
[2017-07-02] MEDS: traZODone HCL 100 MG TAB PO SCH (20:38)
[2017-07-03] MEDS: LORazepam 1 MG TAB PO PRN (04:12)
[2017-07-03] MEDS: SODIUM CHLORIDE 0.65% NASAL SPRAY 44 ML BTL NASAL PRN (04:12)
[2017-07-03] MEDS: CARVEDILOL 12.5 MG TAB PO SCH (09:01)
[2017-07-03] MEDS: LITHIUM CARBONATE 300 MG CAP PO SCH (09:01)
[2017-07-03] MEDS: TAMSULOSIN 0.4 MG CAP.ER.24H PO SCH (09:01)
[2017-07-03] MEDS: NALTREXONE HCL 50 MG TAB PO SCH (09:01)
[2017-07-03 10:51] VITALS: BP 134/77; PULSE 63
[2017-07-03] MEDS ORDERED: LITHIUM CARBONATE 300 MG CAP PO SCH (21:00)
--- NOTE | 2017-07-07 09:09 | DS ---
DATE OF SERVICE: 07/03/2017 DATE OF ADMISSION: 06/27/2017 DATE OF DISCHARGE: 07/03/2017 ADMISSION AND DISCHARGE DIAGNOSIS: Bipolar affective disorder, manic phase. HISTORY OF PRESENTING ILLNESS: The patient is a 51-year-old male. He presented with delusions. He was making odd statements about being God and other thoughts of unreal circumstances. He was not sleeping. He had episodes of agitation. 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 He had previous psychiatric hospitalizations just within the last month and a half including admissions on May 11 and June 06, 2017. I refer the reader to admission and discharge summary notes of Dr. Martinez for details. Patient has had issues with alcohol abuse. He has had recurring episodes of hypomania and carissa. On admission, the patient was on lithium carbonate 300 mg 3 times a day and Ativan 1 mg p.r.n. He was admitted for further evaluation. PAST MEDICAL HISTORY AND PHYSICAL EXAM: As per medical consultation by Ms. Severiano NP. MENTAL STATUS EXAM: Patient was casually dressed and cooperative. Eye contact was fairly good. He was somewhat restless. Speech was clear. He answered questions with appropriate responses. His thoughts were coherent and goal directed. He did not exhibit flight of ideas, loose association or pressured speech. His affect was somewhat constricted. His mood reserved. He did not clearly exhibit hypomanic or manic or depressive symptoms. Cognitive exam was clear. COURSE OF HOSPITALIZATION: The patient was admitted for comprehensive medical, psychiatric and psychosocial evaluation. The patient's lithium was increased to 600 mg in the morning, 900 mg in the evening. He was also started on trazodone 100 mg a day. He did use some p.r.n. Ativan in the first couple days of his hospitalization though that was discontinued. He also was continued on his outpatient medication of Revia to help with substance dependence. Patient showed initially some hypomanic symptoms where he was intense in his manner. He was over talkative. He was somewhat hyperactive. He seemed to settle down fairly quickly. As his hospitalization progressed, he seemed to show good stability in his mood. He was cooperative. He interacted appropriately. He attended groups. He was sleeping fairly well at night. He was up and about in the day. [place] levels on 06/30, 07/01 and 07/03 were 0.7, 0.7 and 0.8 respectively. I had an extensive discussion with the patient regarding management of lithium therapy. We talked about warning signs and response to warning signs of possible lithium toxicity. We reviewed issues related to renal function. It is noted on admission that his creatinine was 0.9. Other labs were unremarkable. Patient was cooperative by the end of his hospitalization. He had a good outlook. He seemed to have good understanding of treatment issues. He expressed motivation for following through with treatment and being consistent with his medications. CONDITION ON DISCHARGE: Patient was stable. His mood was in an even range. He did not exhibit any hypomanic, manic or depressive symptoms. He was functioning well. He tolerated his medications well. RECOMMENDATIONS AND FOLLOWUP: The patient is discharged to home. Discharge medications include lithium carbonate. He understood that he could continue with the divide dose at 600 mg of lithium in the morning and 900 mg in the evening or he could try all 1500 mg at bedtime. In addition, he will continue trazodone 100 mg at bedtime as needed. He will also continue Flomax, Coreg 25 mg twice a day and Revia 50 mg a day. He has a followup scheduled at [facility] on 07/05/2017 at 10 a.m. He was referred back to his primary care physician, Dr. Nguyen, to be seen in one week. I would recommend a lithium level in one week when he sees his primary care physician. I did discuss with the patient the importance of getting lithium levels drawn prior to taking his medication and generally having the levels drawn at 12 hours after his last dose. MTDD
== END 2017-07-03 12:45 | disposition home or self-care (01) | DRG 885 ==
LOC: EC 14:34 → 3MHU 16:46
PROVIDERS: ADMIT Psychiatry & Neurology Psychiatry; ATTEND Psychiatry & Neurology Psychiatry
DX: F31.2 Bipolar disorder, current episode manic severe with psychotic features (principal); I10 Essential (primary) hypertension; F17.200 Nicotine dependence, unspecified, uncomplicated; N40.0 Benign prostatic hyperplasia without lower urinary tract symptoms; F10.10 Alcohol abuse, uncomplicated; Z79.899 Other long term (current) drug therapy; Z91.83 Wandering in diseases classified elsewhere; Z82.49 Family history of ischemic heart disease and other diseases of the circulatory system
CPT/HCPCS: 80053; 80178; 80306; 82075; 84443; 85025; 96372; 99285

== ENCOUNTER 2017-07-23 10:29 | Inpatient (IN) | payer MEDICARE ==
[2017-07-23 12:44] LABS: Basophils # (A) 0.1 k/uL (0-0.2); Basophils % (A) 1 %; CH 33.6; Eosinophils # (A) 0.2 k/uL (0-0.7); Eosinophils % (A) 2 %; HDW 2.19; HGB 15.9 gm/dL (13.0-17.5); Luc # (Auto) 0.11; Luc % (Auto) 1; Lymphocytes # (A) 1.5 k/uL (1.0-4.8); Lymphocytes % (A) 13 %; MCH 32.8 pg (25.0-35.0); MCV 99.4 fL (80.0-100.0); Mean Platelet Volume 8.2; Monocytes # (A) 0.7 k/uL (0-1.0); Monocytes % (A) 6 %; Neutrophils # (A) 8.7 k/uL (1.3-7.7); Neutrophils % (A) 77 %; RBC 4.83 m/uL (4.30-5.90); RDW 13.8 % (11.5-15.5); WBC 11.3 k/uL (3.8-10.6); WBC (Perox) 10.88
[2017-07-23 12:49] LABS: Anion Gap 8 mmol/L; Blood Urea Nitrogen 19 mg/dL (9-20); Carbon Dioxide 23 mmol/L (22-30); Chloride 106 mmol/L (98-107); Glucose 129 mg/dL (74-99); Non-African American GFR(MDRD) >60 (>60 ml/min/1.73 sqM); Potassium 4.3 mmol/L (3.5-5.1); Sodium 137 mmol/L (137-145)
[2017-07-23 12:55] LABS: Lithium 1.6 mmol/L
--- NOTE | 2017-07-23 13:06 | ED ---
Psych HPI - General Chief Complaint: Psychiatric Symptoms Stated Complaint: mental health Time Seen by Provider: 07/23/17 10:55 Source: patient, RN notes reviewed, old records reviewed Mode of arrival: ambulatory - History of Present Illness Initial Comments: This is a 51-year-old male presenting to the emergency department after he petitioned by his . Patient has been exhibiting manic behaviors. He does take lithium. Patient reports that is prescribed to him by his primary care provider Dr. Bob. Patient area consistent with his medication. Patient will say that he has not taken anything the past few days with an reports he takes it 3 times a day. Patient reports that he's had no other symptoms. Denies any suicidal or homicidal ideations. Patient does have very pressured speech. - Related Data Home Medications Medication Instructions Recorded Confirmed Carvedilol [Coreg] 25 mg PO BID 06/06/17 07/23/17 Previous Rx's Medication Instructions Recorded Tamsulosin [Flomax] 0.4 mg PO PC-BRKFST #30 cap 05/22/17 Naltrexone HCl [Revia] 50 mg PO DAILY #30 tab 06/08/17 [place] Carbonate 1,500 mg PO HS #140 cap 07/03/17 Sodium Chloride 0.65% Nasal [Deep 2 spray NASAL QID PRN spray 07/03/17 Sea (Saline)] traZODone HCL [Desyrel] 100 mg PO HS #30 tab 07/03/17 Allergies Allergy/AdvReac Type Severity Reaction Status Date / Time No Known Allergies Allergy Verified 07/23/17 11:47 Review of Systems ROS Statement: Those systems with pertinent positive or pertinent negative responses have been documented in the HPI. ROS Other: All systems not noted in ROS Statement are negative. Past Medical History Past Medical History: Prostate Disorder Additional Past Medical History / Comment(s): bipolar 1 History of Any Multi-Drug Resistant Organisms: None Reported Past Surgical History: No Surgical Hx Reported Additional Past Surgical History / Comment(s): oral Past Anesthesia/Blood Transfusion Reactions: No Reported Reaction Additional Past Anesthesia/Blood Transfusion Reaction / Comment(s): has not had anesthesia or blood transfusion Past Psychological History: Anxiety, Bipolar Smoking Status: Current every day smoker Past Alcohol Use History: Abuse, Daily Past Drug Use History: None Reported - Past Family History Father Family Medical History: Cancer Additional Family Medical History / Comment(s): MELANOMA Mother Family Medical History: Coronary Artery Disease (CAD) Additional Family Medical History / Comment(s): CABG Brother(s) History Unknown: Yes (Alcoholism) Sister(s) History Unknown: Yes (Pancreatic cancer) General Exam - General Exam Comments Initial Comments: 51-year-old male. No acute distress. Limitations: no limitations General appearance: alert, in no apparent distress Head exam: Present: atraumatic, normocephalic, normal inspection Eye exam: Present: normal appearance, PERRL, EOMI. Absent: scleral icterus, conjunctival injection, periorbital swelling ENT exam: Present: normal exam, mucous membranes moist Neck exam: Present: normal inspection. Absent: tenderness, meningismus, lymphadenopathy Respiratory exam: Present: normal lung sounds bilaterally. Absent: respiratory distress, wheezes, rales, rhonchi, stridor Cardiovascular Exam: Present: regular rate, normal rhythm, normal heart sounds. Absent: systolic murmur, diastolic murmur, rubs, gallop, clicks GI/Abdominal exam: Present: soft, normal bowel sounds. Absent: distended, tenderness, guarding, rebound, rigid Extremities exam: Present: normal inspection, full ROM, normal capillary refill. Absent: tenderness, pedal edema, joint swelling, calf tenderness Back exam: Present: normal inspection Neurological exam: Present: alert, oriented X3, CN II-XII intact Psychiatric exam: Present: normal affect, normal mood Skin exam: Present: warm, dry, intact, normal color. Absent: rash Course Vital Signs 07/23/17 10:33 Temperature 98.6 F Pulse Rate 70 Respiratory 18 Rate Blood Pressure 133/83 O2 Sat by Pulse 99 Oximetry - Reevaluation(s) Reevaluation #1: 07/23/17 14:17 Patient is resting comfortably in bed. Family filled out a second petition. Family states that he has tried a light the gas can on prior 3 times. Also reports that he's been having bizarre behaviors and taking out the groceries and putting him in a pile. Medical Decision Making - Medical Decision Making 51-year-old male. Patient is here for a petition manic episode by his . Patient has pressured speech. On organized thoughts. Patient labwork was reviewed. Does have a elevated lithium level of 1.6. Patient has been inconsistent with telling us if he has taken his medication or when was the last dose. Patient denies any tremors, denies taking any medications occur because for renal function. He denies any signs of dehydration including nausea or vomiting or diarrhea. At this time patient has been cooperative and was evaluated by EPS. They will admit the patient at this time. He does need certification. - Lab Data Result diagrams: 07/23/17 12:00 07/23/17 12:00 Lab Results 07/23/17 07/23/17 07/23/17 Range/Units 12:00 12:00 12:30 WBC 11.3 H (3.8-10.6) k/uL RBC 4.83 (4.30-5.90) m/uL Hgb 15.9 (13.0-17.5) gm/dL Hct 48.0 (39.0-53.0) % MCV 99.4 (80.0-100.0) fL MCH 32.8 (25.0-35.0) pg MCHC 33.0 (31.0-37.0) g/dL RDW 13.8 (11.5-15.5) % Plt Count 220 (150-450) k/uL Neutrophils % 77 % Lymphocytes % 13 % Monocytes % 6 % Eosinophils % 2 % Basophils % 1 % Neutrophils # 8.7 H (1.3-7.7) k/uL Lymphocytes # 1.5 (1.0-4.8) k/uL Monocytes # 0.7 (0-1.0) k/uL Eosinophils # 0.2 (0-0.7) k/uL Basophils # 0.1 (0-0.2) k/uL Sodium 137 (137-145) mmol/L Potassium 4.3 (3.5-5.1) mmol/L Chloride 106 (98-107) mmol/L Carbon Dioxide 23 (22-30) mmol/L Anion Gap 8 mmol/L BUN 19 (9-20) mg/dL Creatinine 0.80 (0.66-1.25) mg/dL Est GFR (MDRD) Af Amer >60 (>60 ml/min/1.73 sqM) Est GFR (MDRD) Non-Af >60 (>60 ml/min/1.73 sqM) Glucose 129 H (74-99) mg/dL Calcium 10.0 (8.4-10.2) mg/dL TSH 1.940 (0.465-4.680) mIU/L Urine Opiates Screen Not Detected (NotDetected) Ur Oxycodone Screen Not Detected (NotDetected) Urine Methadone Screen Not Detected (NotDetected) Ur Propoxyphene Screen Not Detected (NotDetected) Ur Barbiturates Screen Not Detected (NotDetected) U Tricyclic Antidepress Not Detected (NotDetected) Ur Phencyclidine Scrn Not Detected (NotDetected) Ur Amphetamines Screen Not Detected (NotDetected) U Methamphetamines Scrn Not Detected (NotDetected) U Benzodiazepines Scrn Not Detected (NotDetected) [place] 1.6 H* mmol/L Urine Cocaine Screen Not Detected (NotDetected) U Marijuana (THC) Screen Not Detected (NotDetected) Disposition Clinical Impression: Diana (monopolar) single episode or unspecified, Delusion Disposition: ADMITTED IP TO THIS [facility] Condition: Stable
[2017-07-23] MEDS ORDERED: LORazepam 1 MG TAB PO PRN (14:43)
[2017-07-23] MEDS ORDERED: MAG HYDROX/AL HYDROX/SIMETH 30 ML CUP PO PRN (14:43)
[2017-07-23] MEDS ORDERED: MAGNESIUM HYDROXIDE 2,400 MG/10 ML CUP PO PRN (14:43)
[2017-07-23] MEDS ORDERED: SODIUM CHLORIDE 0.65% NASAL SPRAY 44 ML BTL NASAL PRN (14:46)
[2017-07-23 16:36] LABS: Appearance,Urine Clear (Clear); Bilirubin,Urine Negative (Negative); Glucose,Urine (UA) Negative (Negative); Ketones,Urine Negative (Negative); Leukocyte Esterase,Urine Negative (Negative); Nitrite,Urine Negative (Negative); PH, Urine 6.5 (5.0-8.0); Protein,Urine Trace (Negative); Specific Gravity,Urine 1.018 (1.001-1.035); UA Billing (MACRO vs. MICRO) CHEM; Urobilinogen,Urine <2.0 mg/dL (<2.0)
[2017-07-23 17:39] VITALS: BMI 29.8
[2017-07-23] MEDS ORDERED: LORazepam 1 MG TAB PO SCH (19:00)
[2017-07-23] MEDS: traZODone HCL 100 MG TAB PO SCH (20:42)
[2017-07-23] MEDS: CARVEDILOL 12.5 MG TAB PO SCH (22:22)
[2017-07-24] MEDS: LORazepam 1 MG TAB PO SCH ×3 (00:04→11:44)
[2017-07-24] MEDS: CARVEDILOL 12.5 MG TAB PO SCH ×2 (08:46→20:57)
[2017-07-24] MEDS: TAMSULOSIN 0.4 MG CAP.ER.24H PO SCH (08:46)
[2017-07-24] MEDS ORDERED: HALOPERIDOL LACTATE 5 MG/ML 1 ML VIAL IM PRN (14:22)
[2017-07-24] MEDS ORDERED: LORazepam 2 MG/ML SYRINGE IM PRN (14:23)
[2017-07-24] MEDS: HALOPERIDOL 2 MG TAB PO PRN ×2 (15:35→19:27)
[2017-07-24] MEDS: LORazepam 1 MG TAB PO PRN ×2 (15:35→19:27)
--- NOTE | 2017-07-24 15:42 | P.CONS ---
History of Present Illness - Reason for Consult Consult date: 07/24/17 - History of Present Illness This is a 51-year-old male patient of Dr. Nguyen with an underlying history of bipolar disorder, hypertension, BPH, and tobacco dependency who presented to the emergency department after exhibiting some manic behaviors by his significant other that he calls . The patients significant other petitioned him. The patient has had multiple admissions in the past for his bipolar disorder. His bipolar disorder is currently managed with lithium. His lithium level was 1.6 yesterday and 1.0 today. The patient' s drug screen was negative. The patient was evaluated on the medical floor today without any complaints of dizziness, lightheadedness, chest pain or palpitations. He denies any suicide ideation. Review of Systems Constitutional: Denies anorexia, Denies chills, Denies chronic headaches, Denies chronic pain, Denies poor appetite, Denies weakness, Denies weight gain, Denies weight loss Eyes: denies blurred vision, denies dry eye, denies irritation, denies itching, denies photophobia, denies loss of vision Ears: deny: decreased hearing, earache, tinnitus Ears, nose, mouth and throat: Denies epistaxis, Denies headache, Denies nasal congestion, Denies nasal discharge, Denies sinus pressure, Denies sore throat, Denies vertigo, Denies voice changes Cardiovascular: Reports high blood pressure, Denies chest pain, Denies claudication, Denies edema, Denies irregular heart beat, Denies leg edema, Denies palpitations, Denies paroxysmal nocturnal dyspnea, Denies shortness of breath, Denies syncope Respiratory: Denies congestion, Denies cough, Denies cough with sputum, Denies dyspnea, Denies hemoptysis, Denies home oxygen, Denies pain, Denies pain on inspiration, Denies wheezing Gastrointestinal: Denies abdominal pain, Denies change in bowel habits, Denies constipation, Denies heartburn, Denies indigestion, Denies nausea, Denies vomiting Genitourinary: Denies dysuria, Denies nocturia, Denies urinary frequency, Denies urinary hesitancy Musculoskeletal: Denies arm numbness/tingling, Denies gait dysfunction, Denies muscle cramps Musculoskeletal: absent: ankle pain, ankle stiffness, foot pain, foot swelling, hand pain, hip pain, knee pain, shoulder pain Integumentary: Denies color changes, Denies lesions, Denies wounds Neurological: Denies gait dysfunction, Denies lack of coordination, Denies motor disturbance, Denies seizures, Denies weakness Psychiatric: Reports anxiety, Reports depression, Reports mood swings Endocrine: Denies cold intolerance, Denies excessive thirst, Denies fatigue, Denies flushing, Denies heat intolerance, Denies weight change Hematologic/Lymphatic: Denies easy bleeding, Denies lymphadenopathy, Denies thrombophilia Allergic/Immunologic: Denies allergic rhinitis, Denies persistent infections, Denies seasonal allergies, Denies wheezing Past Medical History Past Medical History: Hypertension, Prostate Disorder Additional Past Medical History / Comment(s): bipolar 1 History of Any Multi-Drug Resistant Organisms: None Reported Past Surgical History: No Surgical Hx Reported Additional Past Surgical History / Comment(s): oral Past Anesthesia/Blood Transfusion Reactions: No Reported Reaction Additional Past Anesthesia/Blood Transfusion Reaction / Comm: has not had anesthesia or blood transfusion Past Psychological History: Bipolar Smoking Status: Current every day smoker - Past Family History Father Family Medical History: Cancer Additional Family Medical History / Comment(s): MELANOMA Mother Family Medical History: Coronary Artery Disease (CAD) Additional Family Medical History / Comment(s): CABG Brother(s) History Unknown: Yes Sister(s) History Unknown: Yes Medications and Allergies Home Medications Medication Instructions Recorded Confirmed Type Tamsulosin [Flomax] 0.4 mg PO PC-BRKFST #30 cap 05/22/17 07/23/17 Rx Carvedilol [Coreg] 25 mg PO BID 06/06/17 07/23/17 History Naltrexone HCl [Revia] 50 mg PO DAILY #30 tab 06/08/17 07/23/17 Rx [place] Carbonate 1,500 mg PO HS #140 cap 07/03/17 07/23/17 Rx Sodium Chloride 0.65% Nasal [Deep 2 spray NASAL QID PRN spray 07/03/17 Rx Sea (Saline)] traZODone HCL [Desyrel] 100 mg PO HS #30 tab 07/03/17 07/23/17 Rx Allergies Allergy/AdvReac Type Severity Reaction Status Date / Time No Known Allergies Allergy Verified 07/23/17 16:12 Physical Exam Vitals: Vital Signs Temp Pulse Resp BP Pulse Ox 07/24/17 05:38 71 16 137/79 07/23/17 22:22 78 126/73 07/23/17 20:45 67 103/59 07/23/17 18:04 85 109/69 07/23/17 17:34 98.5 F 71 15 121/68 98 Constitutional General appearance: cooperative, no acute distress - EENT Eyes: anicteric sclerae, EOMI, PERRLA, dentition normal, normal appearance ENT: hearing grossly normal, NA/AT, normal oropharynx - Neck Neck: no lymphadenopathy, normal ROM, no other, no rigidity, no stridor, no thyromegaly - Respiratory Respiratory: bilateral: CTA, negative: diminished, dullness, rales, wheezing, prolonged expiration - Cardiovascular Rhythm: regular Heart sounds: normal: S1, S2 Abnormal Heart Sounds: no systolic murmur, no diastolic murmur, no rub, no S3 Gallop, no S4 Gallop, no click, no other - Gastrointestinal General gastrointestinal: normal bowel sounds, soft - Integumentary Integumentary: decreased turgor, normal - Neurologic Neurologic: CNII-XII intact - Musculoskeletal Musculoskeletal: gait normal, strength equal bilaterally - Psychiatric Psychiatric: A&O x's 3, appropriate affect, intact judgment & insight Results CBC & Chem 7: 07/23/17 12:00 07/23/17 12:00 Labs: Abnormal Lab Results - Last 24 Hours (Table) 07/23/17 Range/Units 12:30 Urine Protein Trace H (Negative) Assessment and Plan Plan: 1. Hypertension. Continue carvedilol 25 mg by mouth twice a day. 2. BPH. Continue Flomax 0.4 mg by mouth daily, will watch for any signs of urinary retention 3. Tobacco dependency. We'll order nicotine patches if needed. 4. bipolar disorder. Admitted to the psychiatric unit for management. The above impression and plan of care have been discussed and directed by signing physician. Colette Reyes nurse practitioner acting as scribe for signing physician.
[2017-07-24] MEDS: HALOPERIDOL 2 MG TAB PO SCH ×2 (17:11→21:35)
[2017-07-24] MEDS: traZODone HCL 100 MG TAB PO SCH (20:57)
[2017-07-24] MEDS ORDERED: HALOPERIDOL 2 MG TAB PO STA (21:08)
[2017-07-24] MEDS ORDERED: LORazepam 1 MG TAB PO STA (21:09)
--- NOTE | 2017-07-24 22:45 | P.HP ---
Psychiatric H&P - . H&P Date: 07/24/17 History & Physical: HPI: Julio César Main is 51 male who was admitted to inpatient psychiatry after a petition was filed by his due to patient exhibiting manic behaviors at home. Patient's level in the emergency room was 1.6. Reports taking 500 mg of lithium 3 times a day for a total dose of 1500 mg and states his level is supposed to be around 1.2. He does admit to recently drinking alcohol. Denies any recent excessive exercising all intake, change in prescription medications, taking any new [id number] medications, ingesting any new herbal supplements or teas. Within the last year patient reports she is up for 5 admissions for difficulty controlling his lithium level. Patient also reports that his has been taking his prescribed benzodiazepines from him. At this point in the interview patient became spontaneously hostile and suspicious. I asked patient what he would like us to do with his lithium, he seemed genuinely confused. He stated that doctors always wanting to decrease his lithium, and when I asked what would happen if there was increased he became angry. He stated why would anyone want to increase it, when asked if he wanted us to decrease his lithium; patient stated that he wanted his lithium increased and he didn't understand why anyone wasn't listening to him. Patient was again asked what does he want any again seemed genuinely confused and changed the subject. At this point patient became much more erratic, talking about children, his , various other strange bizarre things that had nothing to do within being in the conversation previously. Patient seemed to be getting upsets the interview was terminated. Throughout the day patient was intermittently clear and at times acted bizarre walking around the unit sometimes urinating in the floor. Patient has required constant redirection and multiple medication adjustments throughout the evening and night to avoid emergency medication. PSYCHIATRIC HISTORY: number of hospitlizations: 4+ number of suicide attempts: unknown; it's difficult to tell if patient's [place] toxicity is intentional or not and if so the intention in manic state -last attempt: current hospital course PMH: HTN, prostate disorder HOME MEDICATIONS: [place] Ativan SURGICAL HISTORY: Oral surgery CHEMICAL DEPENDENCY HISTORY: Alcohol, severe FAMILY HISTORY: Cancer SOCIAL HISTORY: Patient lives at home with his male partner, is retired and reportedly has history although this has varied admission to admission from [employer] to [facility]; patient refuses to discuss such at this time ALLERGIES: Allergy/AdvReac Type Severity Reaction Status Date / Time No Known Allergies Allergy Verified 07/23/17 16:12 Vital Signs Temp 98.4 F 07/24/17 18:15 Pulse 75 07/24/17 20:59 Resp 16 07/24/17 20:59 BP 126/71 07/24/17 20:59 Pulse Ox 98 07/24/17 18:15 Laboratory Last Values WBC 11.3 k/uL (3.8-10.6) H 07/23/17 12:00 RBC 4.83 m/uL (4.30-5.90) 07/23/17 12:00 Hgb 15.9 gm/dL (13.0-17.5) 07/23/17 12:00 Hct 48.0 % (39.0-53.0) 07/23/17 12:00 MCV 99.4 fL (80.0-100.0) 07/23/17 12:00 MCH 32.8 pg (25.0-35.0) 07/23/17 12:00 MCHC 33.0 g/dL (31.0-37.0) 07/23/17 12:00 RDW 13.8 % (11.5-15.5) 07/23/17 12:00 Plt Count 220 k/uL (150-450) 07/23/17 12:00 Neutrophils % 77 % 07/23/17 12:00 Lymphocytes % 13 % 07/23/17 12:00 Monocytes % 6 % 07/23/17 12:00 Eosinophils % 2 % 07/23/17 12:00 Basophils % 1 % 07/23/17 12:00 Neutrophils # 8.7 k/uL (1.3-7.7) H 07/23/17 12:00 Lymphocytes # 1.5 k/uL (1.0-4.8) 07/23/17 12:00 Monocytes # 0.7 k/uL (0-1.0) 07/23/17 12:00 Eosinophils # 0.2 k/uL (0-0.7) 07/23/17 12:00 Basophils # 0.1 k/uL (0-0.2) 07/23/17 12:00 Sodium 137 mmol/L (137-145) 07/23/17 12:00 Potassium 4.3 mmol/L (3.5-5.1) 07/23/17 12:00 Chloride 106 mmol/L (98-107) 07/23/17 12:00 Carbon Dioxide 23 mmol/L (22-30) 07/23/17 12:00 Anion Gap 8 mmol/L 07/23/17 12:00 BUN 19 mg/dL (9-20) 07/23/17 12:00 Creatinine 0.80 mg/dL (0.66-1.25) 07/23/17 12:00 Est GFR (MDRD) Af Amer >60 (>60 ml/min/1.73 sqM) 07/23/17 12:00 Est GFR (MDRD) Non-Af >60 (>60 ml/min/1.73 sqM) 07/23/17 12:00 Glucose 129 mg/dL (74-99) H 07/23/17 12:00 Calcium 10.0 mg/dL (8.4-10.2) 07/23/17 12:00 TSH 2.130 mIU/L (0.465-4.680) 07/24/17 07:39 Urine Color Yellow 07/23/17 12:30 Urine Appearance Clear (Clear) 07/23/17 12:30 Urine pH 6.5 (5.0-8.0) 07/23/17 12:30 Ur Specific [place] 1.018 (1.001-1.035) 07/23/17 12:30 Urine Protein Trace (Negative) H 07/23/17 12:30 Urine Glucose (UA) Negative (Negative) 07/23/17 12:30 Urine Ketones Negative (Negative) 07/23/17 12:30 Urine Blood Negative (Negative) 07/23/17 12:30 Urine Nitrite Negative (Negative) 07/23/17 12:30 Urine Bilirubin Negative (Negative) 07/23/17 12:30 Urine Urobilinogen <2.0 mg/dL (<2.0) 07/23/17 12:30 Ur Leukocyte Esterase Negative (Negative) 07/23/17 12:30 Urine Opiates Screen Not Detected (NotDetected) 07/23/17 12:30 Ur Oxycodone Screen Not Detected (NotDetected) 07/23/17 12:30 Urine Methadone Screen Not Detected (NotDetected) 07/23/17 12:30 Ur Propoxyphene Screen Not Detected (NotDetected) 07/23/17 12:30 Ur Barbiturates Screen Not Detected (NotDetected) 07/23/17 12:30 U Tricyclic Antidepress Not Detected (NotDetected) 07/23/17 12:30 Ur Phencyclidine Scrn Not Detected (NotDetected) 07/23/17 12:30 Ur Amphetamines Screen Not Detected (NotDetected) 07/23/17 12:30 U Methamphetamines Scrn Not Detected (NotDetected) 07/23/17 12:30 U Benzodiazepines Scrn Not Detected (NotDetected) 07/23/17 12:30 [place] 1.0 mmol/L 07/24/17 07:39 Urine Cocaine Screen Not Detected (NotDetected) 07/23/17 12:30 U Marijuana (THC) Screen Not Detected (NotDetected) 07/23/17 12:30 STRENGTHS: family support WEAKNESSES: Alcohol MENTAL STATUS EXAM: Appearance: alert, unkempt, appears stated age, steady gait Behavior: psychomotor agitation, no abnormal movements Attitude: cooperative mostly but hostile seemingly at random Speech: normal rate, rhythm, fluency, articulation; and prosody; primary language: [place]ian Mood: Labile Affect: reactive, congruent Thought processes: linear Thought content: patient does not appear to be responding to internal stimuli; patient denies auditory and visual hallucinations, intermittently patient is floridly delusional and then at other times calm Insight: limited due to acute carissa Judgment: exceptionally poor due to acute carissa Cognitive: oriented to all 4 spheres, normal intelligence Assessment and Plan (1) Severe manic bipolar 1 disorder with psychotic behavior Status: Acute Plan: 1. Continue to hold [place]; recheck level QAM 2. Restart [place] QAM pending review of level 3. Start Haldol 2-mg PO TID 4. Continue Ativan 2-mg PO Q-6HR 5. Patient has required multiple doses of supplemental Haldol + Ativan PO to calm him throughout the night, depending upon his overall behavior throughout the night consider increasing Haldol further 6. Continue hospitalization, patient is acutely manic and psychotic unable to safely function outside of a controlled environment at this time Time with Patient: Greater than 30
[2017-07-25] MEDS: HALOPERIDOL 2 MG TAB PO PRN ×2 (05:08→17:22)
[2017-07-25] MEDS: LORazepam 1 MG TAB PO PRN ×3 (05:08→20:09)
[2017-07-25] MEDS: CARVEDILOL 12.5 MG TAB PO SCH ×2 (08:39→20:07)
[2017-07-25] MEDS: HALOPERIDOL 2 MG TAB PO SCH ×3 (08:40→20:07)
[2017-07-25] MEDS: TAMSULOSIN 0.4 MG CAP.ER.24H PO SCH (08:40)
--- NOTE | 2017-07-25 18:37 | P.PN ---
Subjective Principal diagnosis: Bipolar I disorder, most recent episode manic, severe with psychotic features Patient remains confused today wandering in and out of other patients rooms, exposing his genitals to other patients, and urinating on the floor, and requires constant redirection. Three attempts were made to sit with patient for an interview, patient sat and abruptly sat up once stating he had to tend the children, the other asking me to follow him it was time for lunch (which was two hours prior), and the third he just left. After discussion with treatment team, patient reported has significant improvement in cognition once lithium is restarted. Patient is giddy at the idea of restarting lithium, and states he will gladly do so. Objective - Vital Signs Vital signs: Vital Signs Temp 98.2 F 07/25/17 05:38 Pulse 75 07/25/17 14:15 Resp 18 07/25/17 14:15 BP 132/74 07/25/17 14:15 Pulse Ox 98 07/24/17 18:15 - Labs CBC & Chem 7: 07/23/17 12:00 07/23/17 12:00 Assessment and Plan (1) Severe manic bipolar 1 disorder with psychotic behavior Status: Acute Plan: 1. Continue Haldol + Ativan regimen 2. Restart [place] ER 450-mg PO BID 3. Serial [place] level + BMP QAM ordered 4. Patient remains erratic, requiring constant redirection, and unable to care for himself 5. consider consolidating Haldol tomorrow
[2017-07-25] MEDS: LITHIUM CARBONATE ER 450 MG TABLET.ER PO SCH (20:07)
[2017-07-25] MEDS: traZODone HCL 100 MG TAB PO SCH (20:07)
[2017-07-25] MEDS ORDERED: LORazepam 1 MG TAB PO STA (20:24)
[2017-07-25] MEDS ORDERED: HALOPERIDOL 2 MG TAB PO STA (20:24)
[2017-07-25] MEDS ORDERED: LITHIUM CARBONATE ER 450 MG TABLET.ER PO SCH (21:00)
[2017-07-25] MEDS: LORazepam 1 MG TAB PO SCH (21:11)
[2017-07-26] MEDS: CARVEDILOL 12.5 MG TAB PO SCH ×2 (07:03→20:44)
[2017-07-26] MEDS: LORazepam 1 MG TAB PO PRN (07:04)
[2017-07-26] MEDS: HALOPERIDOL 2 MG TAB PO SCH ×2 (09:35→20:43)
[2017-07-26] MEDS: TAMSULOSIN 0.4 MG CAP.ER.24H PO SCH (09:35)
[2017-07-26] MEDS: LITHIUM CARBONATE ER 450 MG TABLET.ER PO SCH ×2 (09:36→20:44)
[2017-07-26] MEDS: LORazepam 1 MG TAB PO SCH (09:36)
[2017-07-26 10:21] LABS: Anion Gap 10 mmol/L; Blood Urea Nitrogen 19 mg/dL (9-20); Calcium 9.8 mg/dL (8.4-10.2); Carbon Dioxide 22 mmol/L (22-30); Chloride 105 mmol/L (98-107); Glucose 174 mg/dL (74-99); Lithium 0.3 mmol/L; Non-African American GFR(MDRD) >60 (>60 ml/min/1.73 sqM); Potassium 4.5 mmol/L (3.5-5.1); Sodium 137 mmol/L (137-145)
[2017-07-26] MEDS: NICOTINE 14MG/24HR PATCH TRANSDERM SCH (12:30)
[2017-07-26] MEDS ORDERED: LORazepam 1 MG TAB PO PRN (15:14)
[2017-07-26] MEDS ORDERED: LORazepam 1 MG TAB PO SCH ×2 (16:00→16:30)
[2017-07-26] MEDS ORDERED: LORazepam 0.5 MG TAB PO SCH (16:30)
[2017-07-26] MEDS: LORazepam 0.5 MG TAB PO SCH ×2 (16:46→22:16)
[2017-07-26 19:44] LABS: Treponemal Ab Non-Reactive (Non-Reactive)
--- NOTE | 2017-07-26 20:19 | P.PN ---
Subjective Principal diagnosis: Bipolar I disorder, most recent episode manic, severe with psychotic features Patient remains confused. He has required 1-to-1 supervision for personal, staff , and patient safety as patient will at random wander off into other patient's rooms or expose his genitals and urinate in the middle of rooms or hallways. When I interviewed patient, his cognition was much clearer than previous exams, but throughout the day treatment team reported patient acting bizarre and strange. Patient continues to be unable to contract for safety, and continues to have difficulty sleeping at night. Objective - Vital Signs Vital signs: Vital Signs Temp 98.3 F 07/26/17 06:52 Pulse 71 07/26/17 16:48 Resp 16 07/26/17 16:48 BP 131/89 07/26/17 16:48 Pulse Ox 98 07/24/17 18:15 - Labs CBC & Chem 7: 07/23/17 12:00 07/26/17 08:53 Labs: Abnormal Lab Results - Last 24 Hours (Table) 07/26/17 Range/Units 08:53 Glucose 174 H (74-99) mg/dL Assessment and Plan (1) Severe manic bipolar 1 disorder with psychotic behavior Status: Acute Plan: 1. decrease Ativan to 1.5-mg PO TID 2. increase Haldol to 5-mg PO BID 3. serial [place] level + BMP QAM ordered 4. patient remains erratic, requiring constant redirection, and unable to care for himself 5. continue emergency medication regimen 6. EKG ordered as well as multiple labs for delirium workup Active Orders 24 hr 3 Category Date Time Status A1C [Hemoglobin A1c] QAM Lab 07/27/17 09:00 Ordered NATALIA w/Reflex to Titer Routine Lab 07/26/17 08:53 Received HIV1/2 AB P24 AG Routine Lab 07/26/17 08:53 Received PSA Total Reflex to Free Routine Lab 07/26/17 08:53 Received Syphilis Testing Routine Lab 07/26/17 08:53 Received UA [Urinalysis] Routine Lab 07/26/17 09:52 Uncollected
[2017-07-26] MEDS: traZODone HCL 100 MG TAB PO SCH (20:44)
[2017-07-26] MEDS ORDERED: LITHIUM CARBONATE ER 450 MG TABLET.ER PO SCH (21:00)
[2017-07-27 05:12] LABS: ANA w/Reflex to Titer NEGATIVE (NEGATIVE)
[2017-07-27] MEDS: HALOPERIDOL 2 MG TAB PO SCH ×2 (09:08→21:16)
[2017-07-27] MEDS: TAMSULOSIN 0.4 MG CAP.ER.24H PO SCH (09:08)
[2017-07-27] MEDS: CARVEDILOL 12.5 MG TAB PO SCH ×2 (09:08→21:16)
[2017-07-27] MEDS: LITHIUM CARBONATE ER 450 MG TABLET.ER PO SCH ×2 (09:09→21:17)
[2017-07-27] MEDS: LORazepam 0.5 MG TAB PO SCH ×3 (09:10→21:17)
[2017-07-27] MEDS: NICOTINE 14MG/24HR PATCH TRANSDERM SCH (09:13)
[2017-07-27] MEDS ORDERED: LITHIUM CARBONATE 300 MG CAP PO SCH (12:30)
[2017-07-27 12:52] LABS: Hemoglobin A1C 5.2 % (4.2-6.1)
[2017-07-27] MEDS: traZODone HCL 100 MG TAB PO SCH (21:16)
--- NOTE | 2017-07-27 22:39 | P.PN ---
Subjective Principal diagnosis: Bipolar I disorder, most recent episode manic, severe with psychotic features Patient is markedly improved today able to remain engaged throughout the entire interview without signs of confusion, mood symptoms, or psychosis. Patient reports sleeping well last night with the additional added 300-mg of Eskalith. Patient reports his memory of recent events is somewhat hazing, he remembers being confused on the unit and wandering about strangely, but he is unable to describe in word said confused state. At this time patient denies SI/HI/AVH, displays no signs of carissa or hypomania and shows improvements in cognition from previous interview. Objective - Vital Signs Vital signs: Vital Signs Temp 98.1 F 07/27/17 06:49 Pulse 67 07/27/17 10:35 Resp 16 07/27/17 10:35 BP 128/81 07/27/17 10:35 Pulse Ox 98 07/24/17 18:15 - Labs CBC & Chem 7: 07/23/17 12:00 07/26/17 08:53 Assessment and Plan (1) Severe manic bipolar 1 disorder with psychotic behavior Status: Acute Plan: 1. continue current regimen with plan to increase regimen in 2-3 days pending level 2. most likely d/c 1:1 tomorrow 3. EKG and recent labs reviewed; all WNL's
[2017-07-28] MEDS: NICOTINE 14MG/24HR PATCH TRANSDERM SCH (08:53)
[2017-07-28] MEDS: LORazepam 0.5 MG TAB PO SCH (08:53)
[2017-07-28] MEDS: TAMSULOSIN 0.4 MG CAP.ER.24H PO SCH (08:53)
[2017-07-28] MEDS: CARVEDILOL 12.5 MG TAB PO SCH ×2 (08:54→20:52)
[2017-07-28] MEDS: HALOPERIDOL 2 MG TAB PO SCH (08:54)
[2017-07-28] MEDS: LITHIUM CARBONATE ER 450 MG TABLET.ER PO SCH ×2 (08:54→20:52)
[2017-07-28] MEDS: LORazepam 1 MG TAB PO SCH ×2 (12:42→20:52)
[2017-07-28] MEDS: traZODone HCL 100 MG TAB PO SCH (20:52)
[2017-07-28] MEDS: HALOPERIDOL 5 MG TAB PO SCH (20:53)
--- NOTE | 2017-07-28 21:26 | P.PN ---
Subjective Principal diagnosis: Bipolar I disorder, most recent episode manic, severe with psychotic features Patient yet again appears improved from previous exam. Patient refused his QAM Ativan dose due to concerns of EDS, he requests that treatment team consider titrating him off Ativan entirely. After discussion, patient is agreeable to new treatment regimen. He denies any side effects from his current combination of medications. He is now sleeping and eating well. He continues to have limited to no memory of recent events where he was loud, intrusive, pacing the hallways at night and invading other patients room that ultimately lead to him being 1:1 staffed. At present, patient is calm and exhibiting no such behaviors. Objective - Vital Signs Vital signs: Vital Signs Temp 97.9 F 07/28/17 06:46 Pulse 72 07/28/17 20:55 Resp 16 07/28/17 20:55 BP 141/82 07/28/17 20:55 Pulse Ox 98 07/24/17 18:15 - Labs CBC & Chem 7: 07/23/17 12:00 07/26/17 08:53 Assessment and Plan (1) Severe manic bipolar 1 disorder with psychotic behavior Status: Acute Plan: 1. Per patient's request, decrease Ativan to 1-mg PO at lunch + 2-mg PO QHS 2. Decrease Haldol to 2-mg PO QAM + 5-mg PO QHS 3. Continue Eskalith 900-mg PO QHS + 450-mg PO; patient has daily levels ordered to track increase 4. Patient is progressing well, his cognition continues to clear each day 5. Court date set 08/09/2017 6. Discontinue 1:1 staffing
[2017-07-29] MEDS: CARVEDILOL 12.5 MG TAB PO SCH ×2 (09:13→20:05)
[2017-07-29] MEDS: HALOPERIDOL 2 MG TAB PO SCH (09:13)
[2017-07-29] MEDS: LITHIUM CARBONATE ER 450 MG TABLET.ER PO SCH ×2 (09:13→20:05)
[2017-07-29] MEDS: NICOTINE 14MG/24HR PATCH TRANSDERM SCH (09:14)
[2017-07-29] MEDS: LORazepam 1 MG TAB PO SCH ×2 (12:38→20:05)
--- NOTE | 2017-07-29 12:59 | P.PN ---
Progress Note - Text Interval history: The patient is found in the hallway he follows me to an interview room. Progress notes were reviewed. The patient has been treated for bipolar 1 disorder carissa with psychosis. We reviewed his current medications he has no questions or concerns. He is getting daily lithium levels today's level is 0.7. The Ativan has been decreased. The patient has been observed on the mental health unit following direction he has demonstrated no intrusive or disruptive behavior today. He reports sleeping 9 hours last evening appetite stable he is observed participating in groups. Mental status exam: The patient is an alert male appearing his stated age. He is dressed in a T-shirt and shorts. Eye contact is appropriate speech is fluent spontaneous nonpressured he is easily directed in the interview. He reports his mood is "good" affect is congruent and euthymic. He is reporting no suicidal or homicidal ideation intent or plan. He is endorsing no auditory or visual hallucinations he endorses no specific delusions as we reviewed several types. There is no overt evidence of psychosis. He is denying any racing thoughts he demonstrates no pressured speech there is no evidence of hypomanic or manic symptoms as he seated during our session today. Insight and judgment appears to be improving. No observed abnormal involuntary movements. No verbal or physical aggressiveness demonstrated. Plan: Bipolar 1 disorder manic with psychosis, continue current psychotropic medications the patient is stabilizing. Vital signs reviewed. We will continue to monitor him for safety and encourage his participation in the milieu.
[2017-07-29] MEDS: traZODone HCL 100 MG TAB PO SCH (20:05)
[2017-07-29] MEDS: HALOPERIDOL 5 MG TAB PO SCH (20:07)
[2017-07-30] MEDS: ACETAMINOPHEN TAB 325 MG TAB PO PRN (06:22)
[2017-07-30] MEDS: TAMSULOSIN 0.4 MG CAP.ER.24H PO SCH (07:38)
[2017-07-30] MEDS: LITHIUM CARBONATE ER 450 MG TABLET.ER PO SCH ×2 (08:53→21:00)
[2017-07-30] MEDS: CARVEDILOL 12.5 MG TAB PO SCH ×2 (08:53→21:00)
[2017-07-30] MEDS: HALOPERIDOL 2 MG TAB PO SCH (08:53)
[2017-07-30] MEDS: DOCUSATE 100 MG CAP PO SCH (12:24)
[2017-07-30] MEDS: LORazepam 1 MG TAB PO SCH ×2 (12:24→21:00)
--- NOTE | 2017-07-30 16:37 | P.PN ---
Progress Note - Text Interval history: The patient is found in his room he follows me to an interview room. He reports his mood is good he reports having slept last night he is participating in meals. We reviewed his medications he has no questions regarding them. His lithium level today was 0.6. He found himself getting agitated with a female peer and he had a brief verbal altercation. That seemed to be limited to the one event. Overall he feels he is stabilizing and has no questions or concerns. Mental status exam: The patient is a male appearing stated age he presents with adequate hygiene grooming he is dressed in his own clothing. Eye contact is appropriate speech is fluent spontaneous nonpressured. He reports his moods improved he is reporting no suicidal or homicidal ideation intent or plan he is endorsing no auditory or visual hallucinations he is endorsing no specific delusions there is no evidence of psychosis. He reports no racing thoughts he demonstrates no pressured speech he does not appear hypomanic or manic. He is oriented to person place and date. He is able to attend to the conversation and readily engages in conversation. There are no abnormal involuntary movements. He demonstrated no verbal or physical aggressiveness during the session. Affect is euthymic and demonstrates an appropriate range. He is expansive at times. Plan: The patient will continue on his current psychotropic medications. He appears to be clinically stabilizing. Vital signs reviewed. He is encouraged to continue participating in the milieu. We will continue to monitor him for safety.
[2017-07-30] MEDS: traZODone HCL 100 MG TAB PO SCH (21:00)
[2017-07-30] MEDS: HALOPERIDOL 5 MG TAB PO SCH (21:00)
[2017-07-31] MEDS: LORazepam 0.5 MG TAB PO PRN (03:44)
[2017-07-31] MEDS: LITHIUM CARBONATE ER 450 MG TABLET.ER PO SCH ×2 (08:45→21:06)
[2017-07-31] MEDS: DOCUSATE 100 MG CAP PO SCH (08:45)
[2017-07-31] MEDS: TAMSULOSIN 0.4 MG CAP.ER.24H PO SCH (08:45)
[2017-07-31] MEDS: CARVEDILOL 12.5 MG TAB PO SCH ×2 (08:46→21:04)
[2017-07-31] MEDS: HALOPERIDOL 2 MG TAB PO SCH (08:46)
[2017-07-31 10:26] LABS: Anion Gap 8 mmol/L; Blood Urea Nitrogen 17 mg/dL (9-20); Carbon Dioxide 28 mmol/L (22-30); Chloride 104 mmol/L (98-107); Glucose 92 mg/dL (74-99); Non-African American GFR(MDRD) >60 (>60 ml/min/1.73 sqM); Potassium 5.2 mmol/L (3.5-5.1); Sodium 140 mmol/L (137-145)
[2017-07-31] MEDS: LORazepam 1 MG TAB PO SCH ×2 (12:36→21:07)
[2017-07-31] MEDS: ACETAMINOPHEN TAB 325 MG TAB PO PRN (16:04)
--- NOTE | 2017-07-31 20:14 | P.PN ---
Subjective Principal diagnosis: Bipolar I disorder, most recent episode manic, severe with psychotic features Patient continues to show signs of improvement he reports being "pissed off" today because his did not come visit with him as expected. Patient states that he feels like he back to his baseline and doesn't understand why he can't just finish this process OP. Treatment team explained process to patient who voiced understanding. Patient denies any side effects to current regimen, reports eating well, sleeping well, no SI/HI/AVH. Delirium and confusion have resolved. Objective - Vital Signs Vital signs: Vital Signs Temp 98.4 F 07/31/17 06:40 Pulse 67 07/31/17 06:40 Resp 18 07/31/17 06:40 BP 131/79 07/31/17 06:40 Pulse Ox 98 07/24/17 18:15 Intake & Output 07/30/17 07/31/17 07/31/17 18:59 06:59 18:59 Weight 92.8 kg - Labs CBC & Chem 7: 07/23/17 12:00 07/31/17 07:22 Assessment and Plan (1) Severe manic bipolar 1 disorder with psychotic behavior Status: Acute Plan: 1. Continue current regimen 2. [place] level is slowly trending up 3.Once lithium is above 1.0, will attempt to taper down Haldol followed by Ativan if necessary. 4. Patient encouraged to remain positive and engaged in his recovery, questions about medications were answered 5. New serial [place]/BMP labs ordered, K+ slightly elevated over the weekend; will monitor
[2017-07-31] MEDS: traZODone HCL 100 MG TAB PO SCH (21:06)
[2017-07-31] MEDS: HALOPERIDOL 5 MG TAB PO SCH (21:06)
[2017-08-01 05:51] VITALS: TEMP 98
[2017-08-01] MEDS: LORazepam 0.5 MG TAB PO PRN (06:05)
[2017-08-01] MEDS: ACETAMINOPHEN TAB 325 MG TAB PO PRN (06:05)
[2017-08-01] MEDS: TAMSULOSIN 0.4 MG CAP.ER.24H PO SCH (08:20)
[2017-08-01] MEDS: HALOPERIDOL 2 MG TAB PO SCH (08:21)
[2017-08-01] MEDS: DOCUSATE 100 MG CAP PO SCH (08:21)
[2017-08-01] MEDS: LITHIUM CARBONATE ER 450 MG TABLET.ER PO SCH (08:21)
[2017-08-01 08:23] VITALS: BP 114/76; PULSE 69; RESP 18
[2017-08-01] MEDS: CARVEDILOL 12.5 MG TAB PO SCH (09:37)
[2017-08-01 09:39] LABS: Anion Gap 10 mmol/L; Blood Urea Nitrogen 19 mg/dL (9-20); Calcium 9.6 mg/dL (8.4-10.2); Carbon Dioxide 25 mmol/L (22-30); Chloride 104 mmol/L (98-107); Glucose 118 mg/dL (74-99); Lithium 0.6 mmol/L; Non-African American GFR(MDRD) >60 (>60 ml/min/1.73 sqM); Potassium 4.4 mmol/L (3.5-5.1); Sodium 139 mmol/L (137-145)
[2017-08-01] MEDS: LORazepam 1 MG TAB PO SCH (12:22)
--- NOTE | 2017-08-01 15:27 | P.DS ---
Providers Date of admission: 07/23/17 14:41 Expected date of discharge: 08/01/17 (patient is agreeable to attend his court hearing on 08/09/2017) Attending physician: Dillan Cast DO Consults: 07/23/17 14:43 Consult Physician Routine Consulting Provider: Marya Ngo Consult Reason/Comments: follow up H & P Do you want consulting provider notified?: Yes Primary care physician: Vaughn Nguyen - Discharge Diagnosis(es) (1) Severe manic bipolar 1 disorder with psychotic behavior 1. Lithobid 450-mg PO QAM + Lithobid 900-mg PO QHS, would likely benefit from an additional 300-mg PO QHS if his level drops. 2. Continue Ativan 2-mg PO QHS. 2. Continue Haldol 5-mg PO QHS. 3. Continue Trazodone 100-mg PO QHS 4. Avoid drinking alcohol. Current Visit: Yes Status: Acute Priority: High Hospital Course: Patient was brought to the hospital by his 07/24/2017. Has been reported to the ER physician the patient had been acting strange home are behaviors and mannerisms. Multiple labs were checked and patient's lithium level was slightly toxic at 1.6. Patient was confused and could not explain why his level was elevated. He was admitted for evaluation and to stabilize lithium level. After being admitted, patient began to decompensate rapidly. She became more confused, suspicious, wandering around the unit aimlessly. At home patient was supposed to be taking 1500 mg of lithium plus Xanax however his reported to treatment team that he found a 90 day supply bottle of Xanax empty. Patient denied taking any of his Xanax. Urine drug screen negative. Patient did endorse a history of heavy drinking. Patient was started on Ativan, but his confusion and delirium like symptoms continue to progress. For several days patient would wander around the unit at night without sleeping. Would wander into female patient's rooms. Patient was urinating on the floor exposing his patients. Due to the intrusive nature, patient had to be staffed 1-1. Patient was started with Haldol in addition to Ativan and lithium was titrated back up. As lithium reached a more therapeutic level, patient slowly showed signs of improvement. Patient demonstrated this by becoming more involved in his recovery. He requested the treatment team at decrease his Ativan in the morning because he felt too sedated. Towards the end of hospitalization patient had full resolution of manic/delirium symptoms. His mood was euthymic. Patient seems to do well with lithium and decompensates without it at a therapeutic level. At time of discharge, patient denied SI/HI/ AVH. During this hospital patient multiple lab tests all of which were negative. Pertinent labs are listed below. Patient is being discharged on the condition that he will appear in person per court order on 08/09/2017. Patient has in his possession court documents with instructions about location/time. Patient and patient's are agreeable to these terms. MENTAL STATUS EXAM: Appearance: alert, well groomed, appears stated age, steady gait Behavior: no psychomotor agitation or psychomotor retardation, fair eye contact , no abnormal movements Attitude: cooperative Speech: normal rate, rhythm, fluency, articulation; volume; and prosody; primary language: Bulgarian Mood: euthymic Affect: congruent, reactive, mobile congruent with mood Thought processes: linear, organized Thought content: patient does not appear to be responding to internal stimuli; patient denies auditory and visual hallucinations, no delusions appreciated Insight: fair Judgment: fair VITALS: Temp: 98F Pulse: 69 Resp: 18 O2: 98% PERTINENT LABS: [place]: 0.6 Creatinine: 0.9 TSH: 2.130 ~ Dillan Cast DO Patient Condition at Discharge: Fair Plan - Discharge Summary New Discharge Prescriptions: New Haloperidol [Haldol] 5 mg PO HS #14 tab Haloperidol [Haldol] 2 mg PO QAM #14 tab [place] Carbonate ER [Lithobid] 450 mg PO QAM #14 tab [place] Carbonate ER [Lithobid] 900 mg PO HS #28 tab Carvedilol [Coreg] 25 mg PO BID #28 tablet LORazepam [Ativan] 2 mg PO HS #14 tab Continue Naltrexone HCl [Revia] 50 mg PO DAILY #30 tab traZODone HCL [Desyrel] 100 mg PO HS #14 tab Tamsulosin [Flomax] 0.4 mg PO PC-BRKFST #14 cap Discontinued Carvedilol [Coreg] 25 mg PO BID [place] Carbonate 1,500 mg PO HS #140 cap Sodium Chloride 0.65% Nasal [[place] (Saline)] 2 spray NASAL QID PRN spray PRN Reason: Dry Nasal Passages Discharge Medication List Naltrexone HCl [Revia] 50 mg PO DAILY #30 tab 06/08/17 [Rx] Carvedilol [Coreg] 25 mg PO BID #28 tablet 08/01/17 [Rx] Haloperidol [Haldol] 2 mg PO QAM #14 tab 08/01/17 [Rx] Haloperidol [Haldol] 5 mg PO HS #14 tab 08/01/17 [Rx] LORazepam [Ativan] 2 mg PO HS #14 tab 08/01/17 [Rx] [place] Carbonate ER [Lithobid] 450 mg PO QAM #14 tab 08/01/17 [Rx] [place] Carbonate ER [Lithobid] 900 mg PO HS #28 tab 08/01/17 [Rx] Tamsulosin [Flomax] 0.4 mg PO PC-BRKFST #14 cap 08/01/17 [Rx] traZODone HCL [Desyrel] 100 mg PO HS #14 tab 08/01/17 [Rx] Follow up Appointment(s)/Referral(s): [facility] [Outside] - 08/02/17 3:45 pm (w/ Richelle Zaidi) Vaughn Nguyen DO [Primary Care Provider] - 1-2 days Patient Instructions/Handouts: Bipolar Disorder (GEN), Brief Psychotic Disorder (GEN) Activity/Diet/Wound Care/Special Instructions: Activity and diet as tolerated. Avoid the use of street drugs and alcohol. Take all medications as prescribed. When you are in need of refills on your medications please contact your medical doctor and/or outpatient psychiatrist to have this done. Please go to scheduled outpatient appointment for aftercare treatment. If symptoms return or become worse call the crisis line at [phone] and/or go to the nearest emergency room for an evaluation. Discharge Disposition: HOME SELF-CARE
== END 2017-08-01 14:27 | disposition home or self-care (01) | DRG 885 ==
LOC: EC 10:29 → 3MHU 14:41
PROVIDERS: ADMIT Psychiatry & Neurology Psychiatry; ATTEND Psychiatry & Neurology Psychiatry
DX: F31.2 Bipolar disorder, current episode manic severe with psychotic features (principal); I10 Essential (primary) hypertension; F17.200 Nicotine dependence, unspecified, uncomplicated; Z80.8 Family history of malignant neoplasm of other organs or systems; Z82.49 Family history of ischemic heart disease and other diseases of the circulatory system; N40.0 Benign prostatic hyperplasia without lower urinary tract symptoms
CPT/HCPCS: 36415; 80048; 80178; 80306; 81003; 82075; 83036; 84153; 84443; 85025; 85652; 86038; 86140; 86780; 87390; 93005; 99285

== ENCOUNTER → 2020-06-05 | Outpatient (CLI) | payer MEDICARE ==
--- NOTE | 2020-06-05 12:03 | P.STRESS ---
- Stress Test Note Stress Test Results/Findings: Exam Performed: stress test Exam Date: 06/05/20 Reason for Exam: ATYPICAL CHEST PAIN Height: 5 ft 11 in Weight: 245 kg Protocol: JASMINA Stage: 3 Duration of Exercise: 9 MIN Resting Heart Rate: 70 Resting Blood Pressure: 145/92 Maximum Achieved Heart Rate: 140 Maximum Achieved Blood Pressure: 208/110 85% PMHR: 140 100% PMHR: 165 METS: Technologist Comment: Stress Test Results/Findings: This is a 54-year-old gentleman with family history of ischemic heart disease, tobacco use and hypertension being evaluated for chest pains. Stress data Baseline EKG showed sinus rhythm with evidence of right bundle- branch block pattern. Blood pressure at rest is 145/92 with pulse rate of 70. Patient walked on the Jasmina protocol for 9 minutes achieving a maximal heart rate 140 with blood pressure 208/110. EKGs taken during and after the site did not reveal any significant changes from the baseline. Patient did not experience any chest pain. Final impression: #1. Negative stress test #2 . Good exercise capacity #3. No arrhythmias were detected. #4. Patient's exercise capacity is average
--- NOTE | 2020-06-05 12:39 | ECHOF ---
Referral Reason:R07.89 atypical chest pain MEASUREMENTS -------- HEIGHT: 180.3 cm WEIGHT: 111.1 kg BP: 161/106 RVIDd: 3.5 cm (< 3.3) IVSd: 1.4 cm (0.6 - 1.1) LVIDd: 4.5 cm (3.9 - 5.3) LVPWd: 1.5 cm (0.6 - 1.1) IVSs: 1.8 cm LVIDs: 3.0 cm LVPWs: 1.8 cm LA Diam: 3.8 cm (2.7 - 3.8) Ao Diam: 3.7 cm (2.0 - 3.7) AV Cusp: 2.5 cm (1.5 - 2.6) MV EXCURSION: 13.883 mm (> 18.000) MV EF SLOPE: 60 mm/s (70 - 150) EPSS: 1.3 cm MV E Charan: 0.52 m/s MV DecT: 395 ms MV A Charan: 0.55 m/s MV E/A Ratio: 0.94 FINDINGS -------- Sinus rhythm. This was a technically adequate study. The left ventricular size is normal. There is moderate concentric left ventricular hypertrophy. O verall left ventricular systolic function is normal with, an EF between 60 - 65 %. The right ventricle is mildly enlarged. Normal LA size by volume 22+/-6 ml/m2. The right atrium is normal in size. Interatrial and interventricular septum intact. The aortic valve is trileaflet and appears structurally normal. The mitral valve is normal. The tricuspid valve appears structurally normal. Trace/mild (physiologic) pulmonic regurgitation. The aortic root size is normal. IVC Not well visulized. There is no pericardial effusion. CONCLUSIONS -------- 1. Sinus rhythm. 2. The left ventricular size is normal. 3. There is moderate concentric left ventricular hypertrophy. 4. Overall left ventricular systolic function is normal with, an EF between 60 - 65 %. 5. The right ventricle is mildly enlarged. 6. The aortic valve is trileaflet and appears structurally normal. 7. Trace/mild (physiologic) pulmonic regurgitation. 8. The aortic root size is normal. 9. There is no pericardial effusion. PERL SOFTWARE ENGINEER: Zhanna Dawson [facility]
== END | disposition home or self-care (01) ==
LOC: RADNMMAIN 10:32
PROVIDERS: ATTEND Family Medicine
DX: I37.1 Nonrheumatic pulmonary valve insufficiency (principal); I51.7 Cardiomegaly
CPT/HCPCS: 93017; 93306

== ENCOUNTER 2022-04-12 07:25 | Emergency (ER) | payer MEDICARE ==
[2022-04-12 07:36] VITALS: TEMP 97.1
[2022-04-12 07:56] LABS: Glucose,Whole Blood 94 mg/dL (75-99)
[2022-04-12 08:59] LABS: Basophils % (A) 0 %; Eosinophils # (A) 0.1 k/uL (0-0.7); Eosinophils % (A) 1 %; HCT 47.3 % (39.0-53.0); HGB 15.4 gm/dL (13.0-17.5); Lymphocytes # (A) 1.1 k/uL (1.0-4.8); Lymphocytes % (A) 15 %; MCHC 32.6 g/dL (31.0-37.0); MCV 101.2 fL (80.0-100.0); Mean Platelet Volume 8.6; Monocytes # (A) 0.4 k/uL (0-1.0); Monocytes % (A) 6 %; Neutrophils # (A) 5.7 k/uL (1.3-7.7); Neutrophils % (A) 77 %; Platelet Count 179 k/uL (150-450); RBC 4.67 m/uL (4.30-5.90); RDW 12.5 % (11.5-15.5); WBC 7.3 k/uL (3.8-10.6)
[2022-04-12 09:01] LABS: Appearance,Urine Clear (Clear); Bilirubin,Urine Negative (Negative); Blood,Urine Negative (Negative); Color,Urine Yellow; Glucose,Urine (UA) Negative (Negative); Ketones,Urine 2+ (Negative); Leukocyte Esterase,Urine Negative (Negative); Nitrite,Urine Negative (Negative); PH, Urine 5.5 (5.0-8.0); Protein,Urine Negative (Negative); Urobilinogen,Urine <2.0 mg/dL (<2.0)
--- NOTE | 2022-04-12 09:09 | ED ---
General Adult HPI - General Chief complaint: Altered Mental Status Stated complaint: AMS Time Seen by Provider: 04/12/22 07:30 Source: EMS Mode of arrival: EMS - History of Present Illness Initial comments: 56-year-old male with past medical history of hypertension, prostate disorder, bipolar disorder who presents to the emergency department from correction. Officers at bedside however cannot provide history. He states that he just came on shift this morning. From what he was told the patient had been incarcerated 2 days ago. He is not currently receiving any medications. He was up all night pacing. This morning he ended up laying down on the ground in the middle of the correction and nurse went to check on him. They were unable to arouse the patient therefore he was transported via EMS to the hospital. Upon arrival the patient will not speak or follow any commands. No external signs of trauma. The remainder of the HPI is limited because the patient's current state - Related Data Home Medications Medication Instructions Recorded Confirmed Citalopram Hydrobromide [CeleXA] 20 mg PO DAILY 04/12/22 04/12/22 [place] Carbonate 300mg Tab 300 mg PO HS 04/12/22 04/12/22 QUEtiapine [SEROquel] 200 mg PO HS 04/12/22 04/12/22 Previous Rx's Medication Instructions Recorded Citalopram Hydrobromide [CeleXA] 20 mg PO DAILY #30 tablet 04/12/22 [place] Carbonate 300 mg PO HS #30 capsule 04/12/22 QUEtiapine [SEROquel] 200 mg PO HS #30 tablet 04/12/22 Allergies Allergy/AdvReac Type Severity Reaction Status Date / Time No Known Allergies Allergy Verified 04/12/22 11:00 Review of Systems ROS Statement: Those systems with pertinent positive or pertinent negative responses have been documented in the HPI. ROS Other: All systems not noted in ROS Statement are negative. Past Medical History Past Medical History: Hypertension, Prostate Disorder Additional Past Medical History / Comment(s): bipolar 1 History of Any Multi-Drug Resistant Organisms: None Reported Past Surgical History: No Surgical Hx Reported Additional Past Surgical History / Comment(s): oral Past Anesthesia/Blood Transfusion Reactions: No Reported Reaction Additional Past Anesthesia/Blood Transfusion Reaction / Comment(s): has not had anesthesia or blood transfusion Past Psychological History: Bipolar Past Alcohol Use History: Abuse, Daily Past Drug Use History: None Reported - Past Family History Father Family Medical History: Cancer Additional Family Medical History / Comment(s): MELANOMA Mother Family Medical History: Coronary Artery Disease (CAD) Additional Family Medical History / Comment(s): CABG Brother(s) History Unknown: Yes Sister(s) History Unknown: Yes General Exam Limitations: altered mental status General appearance: obtunded Head exam: Present: atraumatic, normocephalic, normal inspection Eye exam: Present: normal appearance, PERRL, EOMI. Absent: scleral icterus, conjunctival injection, periorbital swelling ENT exam: Present: normal exam, other (gag present) Neck exam: Present: normal inspection. Absent: tenderness, meningismus, lymphadenopathy Respiratory exam: Present: normal lung sounds bilaterally. Absent: respiratory distress, wheezes, rales, rhonchi, stridor Cardiovascular Exam: Present: regular rate, normal rhythm, normal heart sounds. Absent: systolic murmur, diastolic murmur, rubs, gallop, clicks GI/Abdominal exam: Present: soft, normal bowel sounds. Absent: distended, tenderness, guarding, rebound, rigid Neurological exam: Present: altered, other (does not follow commands. Nonverbal. Remains with eyes closed) Course Vital Signs 04/12/22 04/12/22 04/12/22 07:28 08:19 08:55 Temperature 97.1 F L Pulse Rate 89 91 Respiratory 20 12 Rate Blood Pressure 192/110 198/124 183/111 O2 Sat by Pulse 98 96 Oximetry 04/12/22 11:41 Temperature Pulse Rate 64 Respiratory 14 Rate Blood Pressure 185/116 O2 Sat by Pulse 97 Oximetry - Reevaluation(s) Reevaluation #1: 04/12/22 10:30 Patient reevaluated. Awake alert. Talking about himself in the third person. Manic and not answering questions appropriately. We'll consult EPS at this time to evaluate the patient EKG Findings - EKG Comments: EKG Findings:: EKG demonstrates sinus rhythm with a rate of 91. KS interval 219. QRS 129. QTC of 456. PVCs present. No acute ST segment elevation. Medical Decision Making - Medical Decision Making Upon arrival patient was placed into room 15. A thorough history and physical exam was performed. IV established laboratory studies were conducted. Patient does have a gag reflex however will not following commands. There were trace studies are reviewed and demonstrates that he is positive for TCAs, benzodiazepines and marijuana. [place] was undetectable. Patient does awaken during his stay. He is wilder however he is able to answer questions appropriately. EPS evaluates him and states that there is no need for the patient be hospitalized. He needs to be placed back on his home medications. I did a prescription for these medications and will send him back to the correction with the patient. Patient will be discharged back to correction is asked to return for any new or worsening symptoms. All parties in agreement with the treatment plan - Lab Data Result diagrams: 04/12/22 08:10 04/12/22 08:10 Lab Results 04/12/22 04/12/22 04/12/22 Range/Units 07:54 08:10 08:10 WBC 7.3 (3.8-10.6) k/uL RBC 4.67 (4.30-5.90) m/uL Hgb 15.4 (13.0-17.5) gm/dL Hct 47.3 (39.0-53.0) % MCV 101.2 H (80.0-100.0) fL MCH 33.0 (25.0-35.0) pg MCHC 32.6 (31.0-37.0) g/dL RDW 12.5 (11.5-15.5) % Plt Count 179 (150-450) k/uL MPV 8.6 Neutrophils % 77 % Lymphocytes % 15 % Monocytes % 6 % Eosinophils % 1 % Basophils % 0 % Neutrophils # 5.7 (1.3-7.7) k/uL Lymphocytes # 1.1 (1.0-4.8) k/uL Monocytes # 0.4 (0-1.0) k/uL Eosinophils # 0.1 (0-0.7) k/uL Basophils # 0.0 (0-0.2) k/uL PT 10.9 (9.0-12.0) sec INR 1.0 (<1.2) APTT 24.4 (22.0-30.0) sec Sodium (137-145) mmol/L Potassium (3.5-5.1) mmol/L Chloride (98-107) mmol/L Carbon Dioxide (22-30) mmol/L Anion Gap mmol/L BUN (9-20) mg/dL Creatinine (0.66-1.25) mg/dL Est GFR (CKD-EPI)AfAm (>60 ml/min/1.73 sqM) Est GFR (CKD-EPI)NonAf (>60 ml/min/1.73 sqM) Glucose (74-99) mg/dL POC Glucose (mg/dL) 94 (75-99) mg/dL POC Glu Prop Making Supervisor ID Arleen Grady Calcium (8.4-10.2) mg/dL Total Bilirubin (0.2-1.3) mg/dL AST (17-59) U/L ALT (4-49) U/L Alkaline Phosphatase (38-126) U/L Ammonia (<30) umol/L Troponin I (0.000-0.034) ng/mL Total Protein (6.3-8.2) g/dL Albumin (3.5-5.0) g/dL TSH (0.465-4.680) mIU/L Urine Color Urine Appearance (Clear) Urine pH (5.0-8.0) Ur Specific [place] (1.001-1.035) Urine Protein (Negative) Urine Glucose (UA) (Negative) Urine Ketones (Negative) Urine Blood (Negative) Urine Nitrite (Negative) Urine Bilirubin (Negative) Urine Urobilinogen (<2.0) mg/dL Ur Leukocyte Esterase (Negative) Salicylates mg/dL Urine Opiates Screen (NotDetected) Ur Oxycodone Screen (NotDetected) Urine Methadone Screen (NotDetected) Ur Propoxyphene Screen (NotDetected) Acetaminophen ug/mL Ur Barbiturates Screen (NotDetected) U Tricyclic Antidepress (NotDetected) Ur Phencyclidine Scrn (NotDetected) Ur Amphetamines Screen (NotDetected) U Methamphetamines Scrn (NotDetected) U Benzodiazepines Scrn (NotDetected) [place] mmol/L Urine Cocaine Screen (NotDetected) U Marijuana (THC) Screen (NotDetected) Serum Alcohol mg/dL 04/12/22 04/12/22 04/12/22 Range/Units 08:10 08:10 08:10 WBC (3.8-10.6) k/uL RBC (4.30-5.90) m/uL Hgb (13.0-17.5) gm/dL Hct (39.0-53.0) % MCV (80.0-100.0) fL MCH (25.0-35.0) pg MCHC (31.0-37.0) g/dL RDW (11.5-15.5) % Plt Count (150-450) k/uL MPV Neutrophils % % Lymphocytes % % Monocytes % % Eosinophils % % Basophils % % Neutrophils # (1.3-7.7) k/uL Lymphocytes # (1.0-4.8) k/uL Monocytes # (0-1.0) k/uL Eosinophils # (0-0.7) k/uL Basophils # (0-0.2) k/uL PT (9.0-12.0) sec INR (<1.2) APTT (22.0-30.0) sec Sodium 140 (137-145) mmol/L Potassium 3.9 (3.5-5.1) mmol/L Chloride 106 (98-107) mmol/L Carbon Dioxide 24 (22-30) mmol/L Anion Gap 10 mmol/L BUN 17 (9-20) mg/dL Creatinine 0.74 (0.66-1.25) mg/dL Est GFR (CKD-EPI)AfAm >90 (>60 ml/min/1.73 sqM) Est GFR (CKD-EPI)NonAf >90 (>60 ml/min/1.73 sqM) Glucose 112 H (74-99) mg/dL POC Glucose (mg/dL) (75-99) mg/dL POC Glu Prop Making Supervisor ID Calcium 8.8 (8.4-10.2) mg/dL Total Bilirubin 0.7 (0.2-1.3) mg/dL AST 35 (17-59) U/L ALT 34 (4-49) U/L Alkaline Phosphatase 78 (38-126) U/L Ammonia (<30) umol/L Troponin I <0.012 (0.000-0.034) ng/mL Total Protein 7.2 (6.3-8.2) g/dL Albumin 4.4 (3.5-5.0) g/dL TSH 0.906 (0.465-4.680) mIU/L Urine Color Yellow Urine Appearance Clear (Clear) Urine pH 5.5 (5.0-8.0) Ur Specific [place] 1.020 (1.001-1.035) Urine Protein Negative (Negative) Urine Glucose (UA) Negative (Negative) Urine Ketones 2+ H (Negative) Urine Blood Negative (Negative) Urine Nitrite Negative (Negative) Urine Bilirubin Negative (Negative) Urine Urobilinogen <2.0 (<2.0) mg/dL Ur Leukocyte Esterase Negative (Negative) Salicylates <1.0 mg/dL Urine Opiates Screen Not Detected (NotDetected) Ur Oxycodone Screen Not Detected (NotDetected) Urine Methadone Screen Not Detected (NotDetected) Ur Propoxyphene Screen Not Detected (NotDetected) Acetaminophen <10.0 ug/mL Ur Barbiturates Screen Not Detected (NotDetected) U Tricyclic Antidepress Detected H (NotDetected) Ur Phencyclidine Scrn Not Detected (NotDetected) Ur Amphetamines Screen Not Detected (NotDetected) U Methamphetamines Scrn Not Detected (NotDetected) U Benzodiazepines Scrn Detected H (NotDetected) [place] <0.2 mmol/L Urine Cocaine Screen Not Detected (NotDetected) U Marijuana (THC) Screen Detected H (NotDetected) Serum Alcohol <10 mg/dL 04/12/22 Range/Units 08:10 WBC (3.8-10.6) k/uL RBC (4.30-5.90) m/uL Hgb (13.0-17.5) gm/dL Hct (39.0-53.0) % MCV (80.0-100.0) fL MCH (25.0-35.0) pg MCHC (31.0-37.0) g/dL RDW (11.5-15.5) % Plt Count (150-450) k/uL MPV Neutrophils % % Lymphocytes % % Monocytes % % Eosinophils % % Basophils % % Neutrophils # (1.3-7.7) k/uL Lymphocytes # (1.0-4.8) k/uL Monocytes # (0-1.0) k/uL Eosinophils # (0-0.7) k/uL Basophils # (0-0.2) k/uL PT (9.0-12.0) sec INR (<1.2) APTT (22.0-30.0) sec Sodium (137-145) mmol/L Potassium (3.5-5.1) mmol/L Chloride (98-107) mmol/L Carbon Dioxide (22-30) mmol/L Anion Gap mmol/L BUN (9-20) mg/dL Creatinine (0.66-1.25) mg/dL Est GFR (CKD-EPI)AfAm (>60 ml/min/1.73 sqM) Est GFR (CKD-EPI)NonAf (>60 ml/min/1.73 sqM) Glucose (74-99) mg/dL POC Glucose (mg/dL) (75-99) mg/dL POC Glu Prop Making Supervisor ID Calcium (8.4-10.2) mg/dL Total Bilirubin (0.2-1.3) mg/dL AST (17-59) U/L ALT (4-49) U/L Alkaline Phosphatase (38-126) U/L Ammonia <9 (<30) umol/L Troponin I (0.000-0.034) ng/mL Total Protein (6.3-8.2) g/dL Albumin (3.5-5.0) g/dL TSH (0.465-4.680) mIU/L Urine Color Urine Appearance (Clear) Urine pH (5.0-8.0) Ur Specific [place] (1.001-1.035) Urine Protein (Negative) Urine Glucose (UA) (Negative) Urine Ketones (Negative) Urine Blood (Negative) Urine Nitrite (Negative) Urine Bilirubin (Negative) Urine Urobilinogen (<2.0) mg/dL Ur Leukocyte Esterase (Negative) Salicylates mg/dL Urine Opiates Screen (NotDetected) Ur Oxycodone Screen (NotDetected) Urine Methadone Screen (NotDetected) Ur Propoxyphene Screen (NotDetected) Acetaminophen ug/mL Ur Barbiturates Screen (NotDetected) U Tricyclic Antidepress (NotDetected) Ur Phencyclidine Scrn (NotDetected) Ur Amphetamines Screen (NotDetected) U Methamphetamines Scrn (NotDetected) U Benzodiazepines Scrn (NotDetected) [place] mmol/L Urine Cocaine Screen (NotDetected) U Marijuana (THC) Screen (NotDetected) Serum Alcohol mg/dL Disposition Clinical Impression: Bipolar disorder, Psychosis Disposition: HOME SELF-CARE Condition: Stable Instructions (If sedation given, give patient instructions): Altered Mental Status (ED) Additional Instructions: You are being discharged back to correction. You need to start your home medications up again. We already dosed your lithium and celexa today. Return to the emergency room for any new or worsening symptoms Prescriptions: Citalopram Hydrobromide [CeleXA] 20 mg PO DAILY #30 tablet [place] Carbonate 300 mg PO HS #30 capsule QUEtiapine [SEROquel] 200 mg PO HS #30 tablet Is patient prescribed a controlled substance at d/c from ED?: No Referrals: Vaughn Nguyen DO [Primary Care Provider] - 1-2 days Time of Disposition: 13:20
[2022-04-12 09:10] LABS: Partial Thromboplastin Time 24.4 sec (22.0-30.0); Prothrombin Time 10.9 sec (9.0-12.0)
[2022-04-12 09:15] LABS: Amphetamine Screen,Urine Not Detected (NotDetected); Barbiturate Screen,Urine Not Detected (NotDetected); Benzodiazepines Screen,Urine Detected (NotDetected); Cocaine Screen,Urine Not Detected (NotDetected); Methadone Screen, Urine Not Detected (NotDetected); Opiate Screen,Urine Not Detected (NotDetected); Oxycodone Screen, Urine Not Detected (NotDetected); Phencyclidine Screen,Urine Not Detected (NotDetected); Tricyclic Antidepressant,Urine Detected (NotDetected); Urn Cannabinoid Scrn Detected (NotDetected)
--- NOTE | 2022-04-12 09:25 | XR ---
EXAMINATION TYPE: XR chest 2V DATE OF EXAM: 04/12/2022 COMPARISON: 06/04/2017 HISTORY: 56-year-old male confusion, altered mental status TECHNIQUE: AP and lateral views FINDINGS: Large body habitus discussing hazy densities over the chest. Some subtle patchy densities in the mid and lower lungs would be difficult to exclude. Heart borderline in size. No pleural effusion. IMPRESSION: Borderline heart size. Large patient body habitus limiting assessment. Some subtle patchy atelectasis versus infiltrates in the mid and lower lungs would be difficult to exclude. Clinically correlate.
--- NOTE | 2022-04-12 09:27 | CT ---
EXAMINATION TYPE: CT brain wo con DATE OF EXAM: 04/12/2022 HISTORY: Altered mental status CT DLP: 1099.4 mGycm. Automated Exposure Control for Dose Reduction was Utilized. TECHNIQUE: CT scan of the head is performed without contrast. COMPARISON: CT brain May 11, 2017. FINDINGS: There is no acute intracranial hemorrhage or midline shift identified. There is mild to m oderate diffuse ventricular and sulcal prominence consistent with diffuse age-related cerebral atroph y. There is mild low-attenuation in the periventricular white matter consistent with chronic small v essel ischemic change. The globes are intact bilaterally. There complete opacification of the ethm oid sinuses bilaterally are current study slightly more prominent than prior. There is mild to modera te mucosal thickening in the sphenoid sinuses right greater than left on current study more prominent than prior. Some mucosal thickening and dependent opacification in the inferior frontal sinuses righ t greater than left. Mild to moderate mucosal thickening in the inferior maxillary sinuses right grea ter than left. IMPRESSION: No acute intracranial hemorrhage or midline shift. There is mild to borderline moderate diffuse age-related cerebral atrophy and mild chronic small vessel ischemic change redemonstrated. No significant change from prior. Acute on chronic paranasal sinus disease is felt present slightly m ore prominent from prior. Correlate clinically.
[2022-04-12 09:29] LABS: ALT 34 U/L (4-49); AST 35 U/L (17-59); Acetaminophen <10.0 ug/mL; African American GFR (CKD) >90 (>60 ml/min/1.73 sqM); Albumin 4.4 g/dL (3.5-5.0); Alcohol <10 mg/dL; Alkaline Phosphatase 78 U/L (38-126); Anion Gap 10 mmol/L; Blood Urea Nitrogen 17 mg/dL (9-20); Calcium 8.8 mg/dL (8.4-10.2); Carbon Dioxide 24 mmol/L (22-30); Chloride 106 mmol/L (98-107); Glucose 112 mg/dL (74-99); Non-African American GFR(CKD) >90 (>60 ml/min/1.73 sqM); Potassium 3.9 mmol/L (3.5-5.1); Salicylate <1.0 mg/dL; Sodium 140 mmol/L (137-145); Total Bilirubin 0.7 mg/dL (0.2-1.3); Total Protein 7.2 g/dL (6.3-8.2)
[2022-04-12 10:00] LABS: Lithium <0.2 mmol/L
[2022-04-12 11:42] VITALS: BP 185/116; PULSE 64; RESP 14
[2022-04-12] MEDS ORDERED: CITALOPRAM HYDROBROMIDE 20 MG TAB PO SCH (13:00)
[2022-04-12] MEDS ORDERED: LITHIUM CARBONATE 300 MG CAP PO SCH (13:00)
== END 2022-04-12 13:31 | disposition home or self-care (01) ==
LOC: EC 07:25
DX: F31.9 Bipolar disorder, unspecified (principal); F29 Unspecified psychosis not due to a substance or known physiological condition; I10 Essential (primary) hypertension
CPT/HCPCS: 36415; 93005; 80053; 84443; 82140; 80178; 84484; 85025; 85610; 85730; 81003; 80306; 80143; 80179; 71046; 70450; 99285; G0480; 80320

== ENCOUNTER 2022-05-06 01:51 | Inpatient (IN) | payer MEDICARE ==
[2022-05-06 04:00] LABS: Amphetamine Screen,Urine Not Detected (NotDetected); Barbiturate Screen,Urine Detected (NotDetected); Benzodiazepines Screen,Urine Detected (NotDetected); Cocaine Screen,Urine Not Detected (NotDetected); Methadone Screen, Urine Not Detected (NotDetected); Opiate Screen,Urine Not Detected (NotDetected); Oxycodone Screen, Urine Not Detected (NotDetected); Phencyclidine Screen,Urine Not Detected (NotDetected); Tricyclic Antidepressant,Urine Detected (NotDetected); Urn Cannabinoid Scrn Detected (NotDetected)
[2022-05-06] MEDS ORDERED: MAGNESIUM HYDROXIDE 2,400 MG/10 ML CUP PO PRN (06:40)
[2022-05-06] MEDS ORDERED: MAG HYDROX/AL HYDROX/SIMETH 30 ML CUP PO PRN (06:40)
[2022-05-06] MEDS ORDERED: HALOPERIDOL LACTATE 5 MG/ML 1 ML VIAL IM PRN ×2 (06:40→14:29)
[2022-05-06] MEDS ORDERED: ACETAMINOPHEN TAB 325 MG TAB PO PRN (06:40)
[2022-05-06] MEDS ORDERED: LORazepam 2 MG/ML INJ IM PRN (06:44)
[2022-05-06 07:45] LABS: Appearance,Urine Clear (Clear); Bilirubin,Urine Negative (Negative); Blood,Urine Negative (Negative); Color,Urine Yellow; Glucose,Urine (UA) Negative (Negative); Ketones,Urine Negative (Negative); Leukocyte Esterase,Urine Negative (Negative); Nitrite,Urine Negative (Negative); PH, Urine 5.5 (5.0-8.0); Protein,Urine Negative (Negative); Specific Gravity,Urine 1.016 (1.001-1.035); Urobilinogen,Urine <2.0 mg/dL (<2.0)
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
[2022-05-06 08:44] VITALS: RESP 18
[2022-05-06] MEDS ORDERED: NICOTINE 14MG/24HR PATCH TRANSDERM SCH (09:00)
[2022-05-06] MEDS: haloperidoL 5 MG TAB PO PRN (11:47)
[2022-05-06] MEDS: LORazepam 1 MG TAB PO SCH ×4 (11:47→20:46)
[2022-05-06] MEDS ORDERED: diphenhydrAMINE 50 MG/ML 1 ML VIAL IM STA (14:23)
[2022-05-06] MEDS ORDERED: chlorproMAZINE 25 MG/ML 2 ML AMP IM STA ×2 (14:23→14:29)
[2022-05-06] MEDS ORDERED: diphenhydrAMINE 50 MG/ML 1 ML VIAL IM PRN (14:30)
--- NOTE | 2022-05-06 14:54 | P.HP ---
Psychiatric H&P - . H&P Date: 05/06/22 History & Physical: Allergies Allergy/AdvReac Type Severity Reaction Status Date / Time No Known Allergies Allergy Verified 05/06/22 07:52 Vital Signs Temp 97.5 F L 05/06/22 08:04 Pulse 98 05/06/22 08:04 Resp 18 05/06/22 08:04 BP 172/105 05/06/22 08:04 Pulse Ox 98 05/06/22 08:04 FiO2 Intake & Output 05/05/22 05/06/22 05/06/22 18:59 06:59 18:59 Weight 103.419 kg Laboratory Last Values Urine Color Yellow 05/06/22 02:13 Urine Appearance Clear (Clear) 05/06/22 02:13 Urine pH 5.5 (5.0-8.0) 05/06/22 02:13 Ur Specific [place] 1.016 (1.001-1.035) 05/06/22 02:13 Urine Protein Negative (Negative) 05/06/22 02:13 Urine Glucose (UA) Negative (Negative) 05/06/22 02:13 Urine Ketones Negative (Negative) 05/06/22 02:13 Urine Blood Negative (Negative) 05/06/22 02:13 Urine Nitrite Negative (Negative) 05/06/22 02:13 Urine Bilirubin Negative (Negative) 05/06/22 02:13 Urine Urobilinogen <2.0 mg/dL (<2.0) 05/06/22 02:13 Ur Leukocyte Esterase Negative (Negative) 05/06/22 02:13 Urine Opiates Screen Not Detected (NotDetected) 05/06/22 02:13 Ur Oxycodone Screen Not Detected (NotDetected) 05/06/22 02:13 Urine Methadone Screen Not Detected (NotDetected) 05/06/22 02:13 Ur Propoxyphene Screen Not Detected (NotDetected) 05/06/22 02:13 Ur Barbiturates Screen Detected (NotDetected) H 05/06/22 02:13 U Tricyclic Antidepress Detected (NotDetected) H 05/06/22 02:13 Ur Phencyclidine Scrn Not Detected (NotDetected) 05/06/22 02:13 Ur Amphetamines Screen Not Detected (NotDetected) 05/06/22 02:13 U Methamphetamines Scrn Not Detected (NotDetected) 05/06/22 02:13 U Benzodiazepines Scrn Detected (NotDetected) H 05/06/22 02:13 Urine Cocaine Screen Not Detected (NotDetected) 05/06/22 02:13 U Marijuana (THC) Screen Detected (NotDetected) H 05/06/22 02:13 Coronavirus (PCR) Not Detected (Not Detectd) 05/06/22 06:04 05/06/22 14:46 IDENTIFYING DATA: Patient is a 56-year-old male with a history of bipolar disorder, currently lives with his in a house and works as a landlord. HPI: Patient presented to the hospital yesterday on a court order for pickup. Patient was petitioned by his mental health therapist states the patient was acting delusional and believed that he won millions of dollars. Patient was also disorganized and binge eating according to petition acting erratic. Patient was positive in his urine drug screen for barbiturates, benzodiazepines, TCAs and cannabis. Patient was admitted involuntarily to the and a health unit and was very intrusive, loud and argumentative. Patient needed to receive prns due to aggression towards another patient and staff. Patient was seen afterwards I radio news writer and agreeable to speak. Patient was rambling, had a flight of ideas and difficult to redirect. He was also very intrusive and demanding about his medications. He believes that he needs to be on Seroquel and Celexa only. He claims that he has been "struggling with bipolar" for years now. He was mainly focused on his having bipolar and that he is "currently in a manic episode". He claims that his is "going overboard". He states that they are having a lot of difficulties in the relationship. He claims that he does not take medications including lithium however was taking Celexa and Seroquel. He was fairly unpredictable during conversation. He claims have poor sleep and fair appetite. Patient denies any suicidal or homicidal ideations intent or plan. At this time patient denies any auditory or visual hallucinations. Patient admits to using cigarettes and alcohol however minimizes alcohol use. PAST PSYCHIATRIC HISTORY: Patient states that his history of bipolar 1 disorder. . Patient was previously on Seroquel and Celexa. His history of taking lithium and Haldol. Patient was last psychiatric hospitalized in 2017 on the mental health unit. He claims that he follows up and let her counseling with his practitioner. Patient denies any history of suicide attempts in the past. PMH: As per medicine H&P. ALLERGIES: as per EMR CHEMICAL DEPENDENCY HISTORY: as per HPI FAMILY PSYCHIATRIC/SUBSTANCE USE HISTORY: denies SOCIAL HISTORY: Patient was born and raised in [facility]. He states that he completed high school. He states that he currently works as a landlord that he lives in a house with his . He denies any legal troubles. MENTAL STATUS EXAM: General Appearance: Patient appears to be overweight, intrusive, stated age is alert, difficult to redirect.. Patient appears to have fair hygiene and grooming. Behavior: Patient is seated without any agitated behavior. Intrusive argumentative difficult to redirect. Speech: Patient's speech is loud and demanding. Mood/Affect: Patient reports their mood is "okay", affect is congruent Suicidality/Homicidality: Patient denies having any homicidal ideation intent or plan. Denies any suicidal ideations intent or plan Perceptions: Patient denies any visual hallucinations and denies any auditory hallucinations Though content/process: Rambling, flight of ideas, tangential. Bizarre at times and aggressive. Memory and concentration: AOX3, poor concentration span. Can spell "WORLD" backwards Judgment and insight: poor STRENGTHS/WEAKNESSES: strength is that patient is resilient. Weakness is that patient has poor judgment and is impulsive INTELLECT: average IMPRESSIONS: Bipolar disorder type I, current episode carissa severe Alcohol use disorder Nicotine dependence PLAN: -Patient is admitted under involuntary status to MHU for stabilization of psych iatric symptoms and safety. Patient has not signed adult voluntary form and medication consent and is placed in patient's chart. A second certification was completed and along with petition will be filed for court. -Medications : Will start patient on paliperidone by mouth 6 mg daily at bedtime for mood stabilization/psychosis. Plan will be to transition patient to long- acting injection. [place] 450 mg twice a day for mood stabilization. Benadryl 50 mg daily at bedtime when necessary for sleep. -Ativan and Haldol and Benadryl PRN for agitation/aggression -WA protocol with Ativan PRN for ETOH withdrawal -Patient was counselled on substance abuse and desired to cut back on use -Patient was informed of the risks, benefits and side effects of the medication -Internal Medicine consult to perform medical evaluation and physical. -NRT - nicotine patch - on board for discharge planning. Encourage patient to participate in groups to work on coping skills. Will await deferral and court date. 05/06/22 14:54
[2022-05-06 17:30] LABS: Urine Alcohol Negative (Negative); Urine Barbiturate Positive (Negative); Urine Cocaine Negative (Negative); Urine Methadone Negative (Negative); Urine Opiates Negative (Negative); Urine Phencyclidine Negative (Negative)
[2022-05-06] MEDS: LITHIUM CARBONATE 150 MG CAP PO SCH ×2 (17:47→20:46)
[2022-05-06] MEDS: PALIPERIDONE 6 MG TAB.ER.24 PO SCH (20:46)
[2022-05-06] MEDS ORDERED: PALIPERIDONE 3 MG TAB.ER.24 PO SCH (21:00)
[2022-05-07] MEDS: haloperidoL 5 MG TAB PO PRN ×2 (01:57→21:10)
[2022-05-07] MEDS: diphenhydrAMINE 50 MG CAP PO PRN ×2 (01:57→21:10)
[2022-05-07] MEDS ORDERED: LORazepam 2 MG/ML INJ IM PRN (02:18)
[2022-05-07] MEDS: LORazepam 1 MG TAB PO PRN ×3 (02:38→21:10)
[2022-05-07] MEDS: LITHIUM CARBONATE 150 MG CAP PO SCH ×2 (07:48→20:01)
[2022-05-07 07:49] LABS: Basophils % (A) 0 %; Eosinophils # (A) 0.3 k/uL (0-0.7); Eosinophils % (A) 3 %; HCT 42.5 % (39.0-53.0); Lymphocytes # (A) 1.9 k/uL (1.0-4.8); Lymphocytes % (A) 21 %; MCH 32.9 pg (25.0-35.0); MCHC 32.9 g/dL (31.0-37.0); MCV 99.9 fL (80.0-100.0); Mean Platelet Volume 9.4; Monocytes # (A) 0.5 k/uL (0-1.0); Monocytes % (A) 6 %; Neutrophils % (A) 68 %; Platelet Count 221 k/uL (150-450); RBC 4.26 m/uL (4.30-5.90); RDW 11.9 % (11.5-15.5); WBC 8.8 k/uL (3.8-10.6)
[2022-05-07 07:50] LABS: ALT 38 U/L (4-49); AST 48 U/L (17-59); African American GFR (CKD) >90 (>60 ml/min/1.73 sqM); Albumin 3.9 g/dL (3.5-5.0); Alkaline Phosphatase 68 U/L (38-126); Anion Gap 7 mmol/L; Blood Urea Nitrogen 9 mg/dL (9-20); Calcium 9.2 mg/dL (8.4-10.2); Carbon Dioxide 26 mmol/L (22-30); Chloride 107 mmol/L (98-107); Glucose 101 mg/dL (74-99); Non-African American GFR(CKD) >90 (>60 ml/min/1.73 sqM); Potassium 4.3 mmol/L (3.5-5.1); Sodium 140 mmol/L (137-145); Total Bilirubin 0.9 mg/dL (0.2-1.3); Total Protein 6.7 g/dL (6.3-8.2)
--- NOTE | 2022-05-07 14:47 | P.PN ---
Progress Note - Text Subjective: Patient was seen today as a cross coverage for Dr. Adams. The patient was evaluated, chart reviewed, case discussed with the treatment team. Patient reports fair sleep last night, and appetite was reported as " good". Patient has been going to some groups and other unit activities. The patient is compliant with his medications and denies any adverse reactions. Patient reports his mood is much better today, and denies any depression, hopeless or suicidal ideation. Patient was talkative and to some degree tangential. He was fixated on getting "Radha Downing" to be his mental and physical doctor. Patient presented with bizarre speech and thoughts. He was fixated on getting a wheelchair earlier for no apparent reason. Objective: Vitals has been reviewed. Mental status examination; Appearance: The patient appears stated age, fairly groomed, average body built, no specific features. Gait/posture:normal , Normal arm swinging: No abnormal movements. Attitude and behavior: not fully engaged, not fully cooperative, intermittent eye contact. Motor activity: normal psychomotor activity Speech: normal Mood:'Fair" Affect: normal Thought form: bizarre and to some degree tangential Thought content: Non-delusional, no suicidal thoughts, denies homicidal thoughts, denies intentions or plans. Perception: Denies any auditory or visual hallucinations Orientation: Patient is oriented to time place person and situation. Insight: Patient has fair insight about his psychiatric disorder. Judgment: Patient has fair judgment about his psychiatric treatment. Assessment: Bipolar disorder type I, current episode carissa severe Alcohol use disorder Nicotine dependence Plan: Continue inpatient level of care due to patient still needs further monitoring and stabilization Precautions: Continue 15 minutes check for safety. Consider medical consultation if any acute medical issues arise. Provide the patient individual, group therapy, substance use disorder counseling to give better insight and learn coping skills. Medications: paliperidone by mouth 6 mg daily at bedtime for mood stabilization/psychosis. Plan will be to transition patient to long-acting injection. [place] 450 mg twice a day for mood stabilization. Benadryl 50 mg daily at bedtime when necessary for sleep. Ativan and Haldol and Benadryl PRN for agitation/aggression CIWA protocol with Ativan PRN for ETOH withdrawal Continue non-psychiatric medications for medical conditions as recommended by the medical team. Patient was counselled on substance abuse and desired to cut back on use Continue as needed medications for psychiatric emergencies including psychosis, agitation and anxiety. Discharge patient to OUTPATIENT services upon a stabilization
[2022-05-07] MEDS: PALIPERIDONE 6 MG TAB.ER.24 PO SCH (20:01)
--- NOTE | 2022-05-08 00:30 | P.CONS ---
History of Present Illness - History of Present Illness This is a pleasant 56 years old male with past medical history of obesity, ni cotine dependence. He was admitted to the mental health unit for signs and symptoms of bipolar disorder. As well as alcohol use disorder. Medical consult has been requested for routine medical management. Patient walking the knox with no difficulty. He denies chest pain or dyspnea. No abdominal pain. No nausea vomiting. No diarrhea. No change in urine or bowel habits. No fever. Patient admits to smoking cigarettes but she could not specify, he was counseled to quit and he feels not ready for that yet, he denies to me he drinking alcohol or illicit drugs but it was recommended patient has a cool use disorder. Labs including CBC, BMP, liver enzymes, urinalysis are unremarkable Urine drug screen was positive for barbiturates, tricyclic antidepressant, benzodiazepine, marijuana, Alcohol Level was negative. Coronavirus not detected Review of Systems Review of systems CONSTITUTIONAL: No fever, no malaise, no fatigue. HEENT: No recent visual problems or hearing problems. Denied any sore throat. CARDIOVASCULAR: No orthopnea, PND, no palpitations, no syncope. PULMONARY: No shortness of breath, no cough, no hemoptysis. GASTROINTESTINAL: No diarrhea, no nausea, no vomiting, no abdominal pain. Normoactive bowel sounds. NEUROLOGICAL: No headaches, no weakness, no numbness. HEMATOLOGICAL: Denies any bleeding or petechiae. GENITOURINARY: Denies any burning micturition, frequency, or urgency. MUSCULOSKELETAL/RHEUMATOLOGICAL: Denies any joint pain, swelling, or any muscle pain. ENDOCRINE: Denies any polyuria or polydipsia. Past Medical History Past Medical History: Hypertension, Prostate Disorder Additional Past Medical History / Comment(s): bipolar 1 History of Any Multi-Drug Resistant Organisms: None Reported Past Surgical History: No Surgical Hx Reported Additional Past Surgical History / Comment(s): oral Past Anesthesia/Blood Transfusion Reactions: No Reported Reaction Additional Past Anesthesia/Blood Transfusion Reaction / Comm: has not had anesthesia or blood transfusion Past Psychological History: Bipolar Smoking Status: Never smoker Past Alcohol Use History: Abuse, Daily Past Drug Use History: None Reported - Past Family History Father Family Medical History: Cancer Additional Family Medical History / Comment(s): MELANOMA Mother Family Medical History: Coronary Artery Disease (CAD) Additional Family Medical History / Comment(s): CABG Brother(s) History Unknown: Yes Sister(s) History Unknown: Yes Medications and Allergies Home Medications Medication Instructions Recorded Confirmed Type Citalopram Hydrobromide [CeleXA] 20 mg PO DAILY 04/12/22 05/06/22 History [place] Carbonate 300 mg PO HS #30 capsule 04/12/22 05/06/22 Rx QUEtiapine [SEROquel] 200 mg PO HS #30 tablet 04/12/22 05/06/22 Rx Allergies Allergy/AdvReac Type Severity Reaction Status Date / Time No Known Allergies Allergy Verified 05/06/22 07:52 Physical Exam Vitals: Vital Signs Temp Pulse BP Pulse Ox 05/07/22 02:43 98 F 99 150/100 98 GENERAL: The patient is alert and oriented x3, not in any acute distress. Well developed, well nourished. HEENT: Pupils are round and equally reacting to light. EOMI. No scleral icterus. No conjunctival pallor. Normocephalic, atraumatic. No pharyngeal erythema. No thyromegaly. CARDIOVASCULAR: S1 and S2 present. No murmurs, rubs, or gallops. PULMONARY: Chest is clear to auscultation, no wheezing or crackles. ABDOMEN: Soft, nontender, nondistended, normoactive bowel sounds. No palpable organomegaly. MUSCULOSKELETAL: No joint swelling or deformity. EXTREMITIES: No cyanosis, clubbing, or pedal edema. NEUROLOGICAL: Gross neurological examination did not reveal any focal deficits. SKIN: No rashes. no petechiae. Results CBC & Chem 7: 05/07/22 07:06 05/07/22 07:06 Labs: Abnormal Lab Results - Last 24 Hours (Table) 05/06/22 05/07/22 05/07/22 Range/Units 02:13 07:06 07:06 RBC 4.26 L (4.30-5.90) m/uL Glucose (74-99) mg/dL Hemoglobin A1c 6.1 H (0.0-6.0) % Urine Barbiturates Positive A (Negative) U Benzodiazepines Scrn Positive A (Negative) U Cannabinoids Screen Positive A (Negative) 05/07/22 Range/Units 07:06 RBC (4.30-5.90) m/uL Glucose 101 H (74-99) mg/dL Hemoglobin A1c (0.0-6.0) % Urine Barbiturates (Negative) U Benzodiazepines Scrn (Negative) U Cannabinoids Screen (Negative) Assessment and Plan Assessment: Bipolar disorder and other psych illnesses: Management as per sec primary team. Nicotine dependence: Patient is counseled, he does not want to quit. Alcohol use disorder New-onset hypertension, start Norvasc and follow-up outpatient Thank you for consulting us, We recommend patient follow up with PCP Dr. nicolas in one week after discharge and patient was instructed with the same
[2022-05-08] MEDS: LITHIUM CARBONATE 150 MG CAP PO SCH ×2 (08:36→20:47)
[2022-05-08] MEDS: amLODIPine 5 MG TAB PO SCH (08:36)
[2022-05-08 10:13] LABS: Chol/HDL Ratio 6.91 Ratio; LDL Cholesterol,Calculated 162.6 mg/dL (0.0-131.0)
--- NOTE | 2022-05-08 15:21 | P.PN ---
Progress Note - Text Progress Note Date: 05/08/22 Subjective: Patient was seen today as a cross coverage for Dr. Adams. The patient was evaluated, chart reviewed, case discussed with the treatment team. Patient reported that he started to feel the medications are helping and his mood is much better. He reported fair sleep last night and he denied any appetite problem today. Patient denied feeling hopeless, or suicidal. He denied any hallucinations, paranoid ideation, or delusions. Patient continued to take his psychiatric medications and no side effects reported. No reports of bizarre or disorganized behaviors today. Patient has been going to groups and other unit activities. Objective: Vitals has been reviewed. Mental status examination; Appearance: The patient appears stated age, fairly groomed, average body built, no specific features. Gait/posture:normal , Normal arm swinging: No abnormal movements. Attitude and behavior: not fully engaged, not fully cooperative, intermittent eye contact. Motor activity: normal psychomotor activity Speech: normal Mood:'Fair" Affect: normal Thought form: Linear, goal-directed. Thought content: Non-delusional, no suicidal thoughts, denies homicidal thoughts, denies intentions or plans. Perception: Denies any auditory or visual hallucinations Orientation: Patient is oriented to time place person and situation. Insight: Patient has fair insight about his psychiatric disorder. Judgment: Patient has fair judgment about his psychiatric treatment. Assessment: Bipolar disorder type I, current episode carissa severe Alcohol use disorder Nicotine dependence Plan: Continue inpatient level of care due to patient still needs further monitoring and stabilization Precautions: Continue 15 minutes check for safety. Consider medical consultation if any acute medical issues arise. Provide the patient individual, group therapy, substance use disorder counseling to give better insight and learn coping skills. Medications: paliperidone by mouth 6 mg daily at bedtime for mood stabilization/psychosis. Plan will be to transition patient to long-acting injection. [place] 450 mg twice a day for mood stabilization. Benadryl 50 mg daily at bedtime when necessary for sleep. Ativan and Haldol and Benadryl PRN for agitation/aggression CIWA protocol with Ativan PRN for ETOH withdrawal Continue non-psychiatric medications for medical conditions as recommended by the medical team. Patient was counselled on substance abuse and desired to cut back on use Continue as needed medications for psychiatric emergencies including psychosis, agitation and anxiety. Discharge patient to OUTPATIENT services upon a stabilization
[2022-05-08] MEDS: PALIPERIDONE 6 MG TAB.ER.24 PO SCH (20:47)
[2022-05-08] MEDS: diphenhydrAMINE 50 MG CAP PO PRN (20:48)
[2022-05-09] MEDS: LORazepam 1 MG TAB PO PRN ×2 (00:34→14:54)
[2022-05-09] MEDS: haloperidoL 5 MG TAB PO PRN ×2 (01:04→16:22)
[2022-05-09] MEDS: LITHIUM CARBONATE 150 MG CAP PO SCH ×2 (08:20→19:57)
[2022-05-09] MEDS: amLODIPine 5 MG TAB PO SCH (08:20)
--- NOTE | 2022-05-09 11:25 | P.PN ---
Progress Note - Text Progress Note Date: 05/09/22 Interval History: Patient was seen wandering the hallways and was directable and agreeable to sp yarelis with credit underwriter in the office. The patient appears to have more goal oriented thought process and speech was normal rate. He was not grandiose or intrusive today. He claims that he is doing a bit better with his medications. He states that his mood is stabilizing at this time. He states that he is taking the medications including lithium and finding it helpful. He states that he is remaining positive and trying to go to some groups. We discussed getting a lithium level tomorrow. He states that he continues to take Haldol by mouth prn at nighttime for sleep. At this time patient denies any suicidal or homical ideations, intent or plan. Patient denies any auditory, visual hallucinations and denies any paranoia or delusions. Patient denies any side effects from the medications and has been compliant with meds. Mental Status Exam: General Appearance: Patient appears to be overweight, lesss intrusive, stated age is alert, more directable today Patient appears to have fair hygiene and grooming. Behavior: Patient is seated without any agitated behavior. Directable today. Speech: Patient's speech is loud and demanding. Mood/Affect: Patient reports their mood is "ok", affect is congruent Suicidality/Homicidality: Patient denies having any homicidal ideation intent or plan. Denies any suicidal ideations intent or plan Perceptions: Patient denies any visual hallucinations and denies any auditory hallucinations Though content/process: Rambling, more goal oriented today. Not endorsing delusions. Memory and concentration: AOX3, poor concentration span Judgment and insight: Improving mildly IMPRESSIONS: Bipolar disorder type I, current episode carissa severe Alcohol use disorder Nicotine dependence Plan: -Patient continues to meet criteria for inpatient psychiatric admission for symptom stabilization and safety. Patient has not signed adult voluntary form and medication consent and was placed in patient's chart. -Medications: Continue with paliperidone by mouth 6 mg daily at bedtime for mood stabilization/psychosis. [place] 450 mg twice a day for mood stabilization, Benadryl 50 mg daily at bedtime when necessary for sleep. -When necessary Ativan and Haldol, benadryl for agitation/aggression. Trazodone 100 mg daily at bedtime for mood/insomnia. -NRT - nicotine patch -SW on board for discharge planning. Encouraged the patient to participate in milieu. Currently awaiting deferral with corncob pipes assembler and court date.
[2022-05-09] MEDS: PALIPERIDONE 6 MG TAB.ER.24 PO SCH (19:57)
[2022-05-09] MEDS ORDERED: traZODone HCL 100 MG TAB PO SCH (21:00)
[2022-05-10] MEDS: diphenhydrAMINE 50 MG CAP PO PRN (01:48)
[2022-05-10] MEDS: LORazepam 1 MG TAB PO PRN (01:48)
[2022-05-10 07:02] VITALS: TEMP 97.3
[2022-05-10] MEDS: amLODIPine 5 MG TAB PO SCH (08:34)
[2022-05-10] MEDS: LITHIUM CARBONATE 150 MG CAP PO SCH (08:34)
[2022-05-10 08:35] VITALS: BP 140/90; PULSE 94
--- NOTE | 2022-05-10 10:20 | P.DS ---
Providers Date of admission: 05/06/22 08:00 Expected date of discharge: 05/10/22 Attending physician: Randell Adams MD Consults: 05/06/22 08:44 Consult Physician Routine Consulting Provider: Joey Gilman Reason/Comments: h and p Do you want consulting provider notified?: Yes, Notify in am Primary care physician: Vaughn Nguyen - Discharge Diagnosis(es) (1) Bipolar disorder, current episode manic w/o psychotic features, severe Current Visit: Yes Status: Acute Priority: High (2) Alcohol use disorder Current Visit: Yes Status: Acute Priority: Medium (3) Nicotine dependence Current Visit: Yes Status: Acute Priority: Low Hospital Course: Admission HPI: Admission note was completed by freelance copywriter "Patient is a 56-year-old male with a history of bipolar disorder, currently lives with his in a house and works as a landlord. Patient presented to the hospital yesterday on a court order for pickup. Patient was petitioned by his mental health therapist states the patient was acting delusional and believed that he won millions of dollars. Patient was also disorganized and binge eating according to petition acting erratic. Patient was positive in his urine drug screen for barbiturates, benzodiazepines, TCAs and cannabis. Patient was admitted involuntarily to the and a health unit and was very intrusive, loud and argumentative. Patient needed to receive prns due to aggression towards another patient and staff. Patient was seen afterwards I freelance copywriter and agreeable to speak. Patient was rambling, had a flight of ideas and difficult to redirect. He was also very intrusive and demanding about his medications. He believes that he needs to be o n Seroquel and Celexa only. He claims that he has been "struggling with bipolar" for years now. He was mainly focused on his having bipolar and that he is "currently in a manic episode". He claims that his is "going overboard". He states that they are having a lot of difficulties in the relationship. He claims that he does not take medications including lithium however was taking Celexa and Seroquel. He was fairly unpredictable during conversation. He claims have poor sleep and fair appetite. Patient denies any suicidal or homicidal ideations intent or plan. At this time patient denies any auditory or visual hallucinations. Patient admits to using cigarettes and alcohol however minimizes alcohol use." Hospital course: Upon admission to the unit patient was admitted involuntarily on a petition and certificate and a second certificate was completed and faxed with the courts. Patient ended up signing a deferral with the attorney general and agreeing to treatment. Patient got along well with other patients on the unit and followed unit protocol. Patient was compliant with the medications and denied any side effects throughout hospital course. Patient was started on paliperidone by mouth 6 mg daily at bedtime for mood stabilization/psychosis. Patient was also restarted back on lithium 450 mg twice a day for mood stabilization. Trazodone 100 mg daily at bedtime for insomnia/mood, Benadryl 50 mg daily at bedtime when necessary for sleep. Patient spoke of his stressors and engaged in therapy both group and individual. Patient was also seen by medical team for history and physical exam. Throughout the course of the hospitalization patient gradually improved with regards to mood, anxiety, sleep and became more future oriented with improved insight and judgment. On the day of discharge patient denied any suicidal or homicidal ideations intent or plan denied any auditory or visual hallucinations. Patient endorsed wanting to live for his health and family. The patient denied any access to guns or weapons. Patient denied any paranoia and did not endorse any delusions. Patient does have a significant history of substance abuse and was counseled on abstaining from all substances including alcohol and marijuana. Patient was offered however declined inpatient substance- abuse rehab. Patient was also counseled on the medications and need for regular compliance and was encouraged to follow-up with their outpatient appointment for mental health and also for primary care. Prior to discharge a family meeting will be arranged by social service coordinator to answer any questions and ensure safety upon discharge. Mental status exam: General Appearance: Patient appears to be stated age is alert, pleasant, and cooperative. Patient is in no acute distress and has improved hygiene and grooming Behavior: Patient is calmly seated without any agitated behavior. Speech: Patient's speech is fluent and nonpressured. Mood/Affect: Patient reports their mood is "good", affect is congruent and euthymic. Suicidality/Homicidality: Patient denies having any suicidal or homicidal ideation intent or plan. Perceptions: Patient denies any auditory or visual hallucinations. Though content/process: There is no evidence of any delusional thought content and thought process is linear and goal-directed. Memory and concentration: AOX3, grossly intact for the purposes of this session. Can spell "WORLD" backwards correctly. Judgment and insight: chronically poor, however has improved with guarded prognosis Impression: Bipolar disorder type I, current episode carissa severe without psychotic features Alcohol use disorder Nicotine dependence Plan: -Continue with discharge today as patient has improved and stabilized psychiatrically and is not currently an imminent threat to himself and/or others. Patient will remain at chronically elevated risk for harm to self and/or others due to his impulsivity and substance abuse. -Continue medications: [place] 450 mg twice a day for mood stabilization, paliperidone by mouth 6 mg daily at bedtime for mood stabilization/psychosis, trazodone 100 mg daily at bedtime for mood/insomnia, Benadryl 50 mg daily at bedtime when necessary for sleep. -Patient was counseled on the need for medication compliance and appropriate follow-up at mental health and also primary care for medical issues. Patient verbalized understanding and agreed. -Social work to arrange for and conduct family meeting to ensure safety upon discharge and answer any questions/concerns. Social work also to arrange for patients follow up appointments for psychiatric care along with follow up with primary care provider. -Patient counseled on abstaining from recreational drugs and marijuana and alcohol. Was informed/educated on the adverse effects on their physical and mental health. Patient verbally agreed and understood. -Patient was instructed to return to the hospital or seek immediate medical care if their psychiatric or medical symptoms do worsen or reoccur. Allergies Allergy/AdvReac Type Severity Reaction Status Date / Time No Known Allergies Allergy Verified 05/06/22 07:52 Laboratory Results WBC 8.8 k/uL (3.8-10.6) 05/07/22 07:06 RBC 4.26 m/uL (4.30-5.90) L 05/07/22 07:06 Hgb 14.0 gm/dL (13.0-17.5) 05/07/22 07:06 Hct 42.5 % (39.0-53.0) 05/07/22 07:06 MCV 99.9 fL (80.0-100.0) 05/07/22 07:06 MCH 32.9 pg (25.0-35.0) 05/07/22 07:06 MCHC 32.9 g/dL (31.0-37.0) 05/07/22 07:06 RDW 11.9 % (11.5-15.5) 05/07/22 07:06 Plt Count 221 k/uL (150-450) 05/07/22 07:06 MPV 9.4 05/07/22 07:06 Neutrophils % 68 % 05/07/22 07:06 Lymphocytes % 21 % 05/07/22 07:06 Monocytes % 6 % 05/07/22 07:06 Eosinophils % 3 % 05/07/22 07:06 Basophils % 0 % 05/07/22 07:06 Neutrophils # 6.0 k/uL (1.3-7.7) 05/07/22 07:06 Lymphocytes # 1.9 k/uL (1.0-4.8) 05/07/22 07:06 Monocytes # 0.5 k/uL (0-1.0) 05/07/22 07:06 Eosinophils # 0.3 k/uL (0-0.7) 05/07/22 07:06 Basophils # 0.0 k/uL (0-0.2) 05/07/22 07:06 Sodium 140 mmol/L (137-145) 05/07/22 07:06 Potassium 4.3 mmol/L (3.5-5.1) 05/07/22 07:06 Chloride 107 mmol/L (98-107) 05/07/22 07:06 Carbon Dioxide 26 mmol/L (22-30) 05/07/22 07:06 Anion Gap 7 mmol/L 05/07/22 07:06 BUN 9 mg/dL (9-20) 05/07/22 07:06 Creatinine 0.72 mg/dL (0.66-1.25) 05/07/22 07:06 Est GFR (CKD-EPI)AfAm >90 (>60 ml/min/1.73 sqM) 05/07/22 07:06 Est GFR (CKD-EPI)NonAf >90 (>60 ml/min/1.73 sqM) 05/07/22 07:06 Glucose 101 mg/dL (74-99) H 05/07/22 07:[address] Glu mg/dL 128 05/07/22 07:06 Hemoglobin A1c 6.1 % (0.0-6.0) H 05/07/22 07:06 Calcium 9.2 mg/dL (8.4-10.2) 05/07/22 07:06 Total Bilirubin 0.9 mg/dL (0.2-1.3) 05/07/22 07:06 AST 48 U/L (17-59) 05/07/22 07:06 ALT 38 U/L (4-49) 05/07/22 07:06 Alkaline Phosphatase 68 U/L (38-126) 05/07/22 07:06 Total Protein 6.7 g/dL (6.3-8.2) 05/07/22 07:06 Albumin 3.9 g/dL (3.5-5.0) 05/07/22 07:06 Triglycerides 162.00 mg/dL (0.00-149.00) H 05/07/22 07:06 Cholesterol 228.00 mg/dL (0.00-200.00) H 05/07/22 07:06 LDL Cholesterol, Calc 162.6 mg/dL (0.0-131.0) H 05/07/22 07:06 VLDL Cholesterol, Calc 32.40 mg/dL (5.00-40.00) 05/07/22 07:06 HDL Cholesterol 33.00 mg/dL (40.00-60.00) L 05/07/22 07:06 Cholesterol/HDL Ratio 6.91 Ratio 05/07/22 07:06 TSH 1.390 mIU/L (0.465-4.680) 05/07/22 07:06 Urine Color Yellow 05/06/22 02:13 Urine Appearance Clear (Clear) 05/06/22 02:13 Urine pH 5.5 (5.0-8.0) 05/06/22 02:13 Ur Specific [place] 1.016 (1.001-1.035) 05/06/22 02:13 Urine Protein Negative (Negative) 05/06/22 02:13 Urine Glucose (UA) Negative (Negative) 05/06/22 02:13 Urine Ketones Negative (Negative) 05/06/22 02:13 Urine Blood Negative (Negative) 05/06/22 02:13 Urine Nitrite Negative (Negative) 05/06/22 02:13 Urine Bilirubin Negative (Negative) 05/06/22 02:13 Urine Urobilinogen <2.0 mg/dL (<2.0) 05/06/22 02:13 Ur Leukocyte Esterase Negative (Negative) 05/06/22 02:13 Urine Opiates Screen Negative (Negative) 05/06/22 02:13 Urine Opiates Screen Not Detected (NotDetected) 05/06/22 02:13 Ur Oxycodone Screen Not Detected (NotDetected) 05/06/22 02:13 Urine Methadone Screen Negative (Negative) 05/06/22 02:13 Urine Methadone Screen Not Detected (NotDetected) 05/06/22 02:13 Ur Propoxyphene Screen Negative (Negative) 05/06/22 02:13 Ur Propoxyphene Screen Not Detected (NotDetected) 05/06/22 02:13 Ur Barbiturates Screen Detected (NotDetected) H 05/06/22 02:13 Urine Barbiturates Positive (Negative) A 05/06/22 02:13 U Tricyclic Antidepress Detected (NotDetected) H 05/06/22 02:13 Ur Phencyclidine Scrn Negative (Negative) 05/06/22 02:13 Ur Phencyclidine Scrn Not Detected (NotDetected) 05/06/22 02:13 Ur Amphetamine Screen Negative (Negative) 05/06/22 02:13 Ur Amphetamines Screen Not Detected (NotDetected) 05/06/22 02:13 U Methamphetamines Scrn Not Detected (NotDetected) 05/06/22 02:13 U Benzodiazepines Scrn Detected (NotDetected) H 05/06/22 02:13 U Benzodiazepines Scrn Positive (Negative) A 05/06/22 02:13 [place] 0.6 mmol/L 05/09/22 10:50 Urine Cocaine Screen Negative (Negative) 05/06/22 02:13 Urine Cocaine Screen Not Detected (NotDetected) 05/06/22 02:13 U Cannabinoids Screen Positive (Negative) A 05/06/22 02:13 U Marijuana (THC) Screen Detected (NotDetected) H 05/06/22 02:13 Urine Alcohol Negative (Negative) 05/06/22 02:13 Coronavirus (PCR) Not Detected (Not Detectd) 05/06/22 06:04 Vital Signs Temp 97.3 F L 05/10/22 07:02 Pulse 94 05/10/22 08:35 Resp 18 05/08/22 06:57 BP 140/90 05/10/22 08:35 Pulse Ox 97 05/10/22 07:02 FiO2 Patient Condition at Discharge: Stable Plan - Discharge Summary New Discharge Prescriptions: New diphenhydrAMINE [Benadryl] 50 mg PO HS PRN 30 Days cap PRN Reason: Insomnia traZODone HCL [Desyrel] 100 mg PO HS 30 Days tab Paliperidone [Invega] 6 mg PO HS 30 Days tab [place] Carbonate 450 mg PO BID 30 Days cap amLODIPine [Norvasc] 5 mg PO DAILY 30 Days tab Discontinued [place] Carbonate 300 mg PO HS #30 capsule Citalopram Hydrobromide [CeleXA] 20 mg PO DAILY QUEtiapine [SEROquel] 200 mg PO HS #30 tablet Discharge Medication List [place] Carbonate 450 mg PO BID 30 Days cap 05/10/22 [Rx] Paliperidone [Invega] 6 mg PO HS 30 Days tab 05/10/22 [Rx] amLODIPine [Norvasc] 5 mg PO DAILY 30 Days tab 05/10/22 [Rx] diphenhydrAMINE [Benadryl] 50 mg PO HS PRN 30 Days cap 05/10/22 [Rx] traZODone HCL [Desyrel] 100 mg PO HS 30 Days tab 05/10/22 [Rx] Follow [facility] 10:00 am (Richelle Zaidi) Vaughn Nguyen DO [Primary Care Provider] - 1-2 days Activity/Diet/Wound Care/Special Instructions: Avoid the use of street drugs and alcohol. Take all prescriptions as prescribed. When you are in need of refills on your medications, please contact your medical provider and/or outpatient psychiatrist to have this done. Please go to scheduled outpatient appointment for aftercare treatment. If symptoms return or become worse, call the crisis line at and/or go to the nearest emergency room for evaluation. Discharge Disposition: HOME SELF-CARE
== END 2022-05-10 13:32 | disposition home or self-care (01) | DRG 885 ==
LOC: EC 01:51 → 3MHU 08:00
PROVIDERS: ADMIT Psychiatry & Neurology Psychiatry; ATTEND Psychiatry & Neurology Psychiatry
DX: F31.13 Bipolar disorder, current episode manic without psychotic features, severe (principal); F41.9 Anxiety disorder, unspecified; G47.00 Insomnia, unspecified; I10 Essential (primary) hypertension; F17.210 Nicotine dependence, cigarettes, uncomplicated; N42.9 Disorder of prostate, unspecified; F10.10 Alcohol abuse, uncomplicated; E66.9 Obesity, unspecified; F22 Delusional disorders; Z79.899 Other long term (current) drug therapy; Z80.8 Family history of malignant neoplasm of other organs or systems; Z82.49 Family history of ischemic heart disease and other diseases of the circulatory system; Z20.822 Contact with and (suspected) exposure to COVID-19; Z68.30 Body mass index [BMI] 30.0-30.9, adult
CPT/HCPCS: 80053; 80061; 80178; 80306; 81003; 82075; 83036; 84443; 85025; 87635; 99285

== ENCOUNTER → 2022-06-30 | Outpatient (CLI) | payer MEDICARE ==
--- NOTE | 2022-06-30 12:19 | XR ---
EXAMINATION TYPE: XR Hip Bilateral Complete DATE OF EXAM: 06/30/2022 CLINICAL HISTORY: pain TECHNIQUE: AP and frogleg views of the bilateral hips are obtained. COMPARISON: None. FINDINGS: There is no acute fracture/dislocation evident. The joint space appears within normal li mits. The overlying soft tissue appears unremarkable. IMPRESSION: 1. There is no acute fracture or dislocation. ICD 10 NO FRACTURE, INITIAL EVALUATION
--- NOTE | 2022-06-30 12:20 | XR ---
EXAMINATION TYPE: XR knee complete bilateral DATE OF EXAM: 06/30/2022 CLINICAL HISTORY: pain TECHNIQUE: Three views of the bilateral knees are obtained. COMPARISON: None. FINDINGS: There is no acute fracture/dislocation. The tri-compartment joint spaces appear within no rmal limits. The overlying soft tissue appears unremarkable. IMPRESSION: There is no acute fracture or dislocation. ICD 10 NO FRACTURE, INITIAL EVALUATION
== END | disposition home or self-care (01) ==
LOC: RADXRMAIN 11:07
PROVIDERS: ATTEND Family Medicine
DX: M25.561 Pain in right knee (principal); M25.562 Pain in left knee; M25.551 Pain in right hip; M25.552 Pain in left hip
CPT/HCPCS: 73521

== ENCOUNTER → 2022-09-16 | Outpatient (CLI) | payer MEDICARE ==
[2022-09-16 14:32] LABS: Basophils # (A) 0.03 X 10*3/uL (0.00-0.10); Basophils % (A) 0.4 %; Eosinophils # (A) 0.33 X 10*3/uL (0.04-0.35); Eosinophils % (A) 4.8 %; HCT 47.5 % (39.6-50.0); HGB 15.8 g/dL (13.0-17.0); Immature Grans, Automated 0.3 %; Lymphocytes % (A) 31.8 %; MCH 30.8 pg (27.0-32.0); MCHC 33.3 g/dL (32.0-37.0); MCV 92.6 fL (80.0-97.0); Monocytes # (A) 0.43 X 10*3/uL (0.20-1.00); Monocytes % (A) 6.2 %; NRBC Per 100 WBC 0 /100 WBCS (0.0-0.0); Neutrophils % (A) 56.5 %; Platelet Count 172 X 10*3/uL (140-440); RBC 5.13 X 10*6/uL (4.40-5.60); RDW 12.3 % (11.5-14.5); WBC 6.91 X 10*3/uL (4.50-10.00)
[2022-09-16 15:58] LABS: ALT 15 U/L (10-49); AST 11 U/L (14-35); Albumin 4.4 g/dL (3.8-4.9); Albumin/Globulin Ratio 1.92 (1.60-3.17); Alkaline Phosphatase 71 U/L (41-126); Bilirubin, Conjugated <0.20 mg/dL (0.20-0.40); Blood Urea Nitrogen 19.5 mg/dL (9.0-27.0); Globulin 2.3 g/dL (1.6-3.3); Glucose 104 mg/dL (70-110); LDL Cholesterol,Calculated 163.5 mg/dL (0.0-131.0); Total Protein 6.7 g/dL (6.2-8.2)
== END | disposition home or self-care (01) ==
LOC: LABWHC1 09:11
PROVIDERS: ATTEND Psychiatry & Neurology Psychiatry
DX: F31.9 Bipolar disorder, unspecified (principal); F10.20 Alcohol dependence, uncomplicated; Z79.899 Other long term (current) drug therapy
CPT/HCPCS: 36415; 80061; 80076; 80178; 82164; 82947; 84439; 84443; 84520; 85025

== ENCOUNTER 2023-04-24 07:34 | Inpatient (IN) | payer MEDICARE ==
[2023-04-24] MEDS ORDERED: ASPIRIN 81 MG PO STA (07:52)
[2023-04-24] MEDS ORDERED: HEPARIN SODIUM 1,000 UN/ML (10ML VL) IV ONE ×2 (07:53→08:32)
[2023-04-24] MEDS ORDERED: SODIUM CHLORIDE 0.9% 1,000 ML IV STA (07:53)
[2023-04-24] MEDS ORDERED: ATORVASTATIN 80 MG TAB PO STA (07:54)
--- NOTE | 2023-04-24 07:55 | ED ---
Chest Pain HPI - General Chief Complaint: Chest Pain Stated Complaint: chest pain Time Seen by Provider: 04/24/23 07:40 Source: patient Mode of arrival: ambulatory Limitations: no limitations - History of Present Illness Initial Comments: 57-year-old male with past mental history of bipolar disorder, hypertension who presents to the emergency department reporting chest pain. States it's been intermittent since . He was working in his yard when it first started. Pain is become more consistent. It is substernal with radiation to both shoul ders. He admits to nausea with one episode of vomiting this morning. No history of cardiac disease. Had a stress test 2 years ago which was normal. Has a brother with significant cardiac history. He denies shortness of breath. No fevers, chills or cough. No contraindications to antegrade urination. No other alleviating, precipitating or modifying factors - Related Data Home Medications Medication Instructions Recorded Confirmed Cetirizine HCl [Zyrtec] 10 mg PO DAILY 04/24/23 04/24/23 Citalopram Hydrobromide [CeleXA] 40 mg PO DAILY 04/24/23 04/24/23 Fish Oil(Unknown Dose) 3 cap PO DAILY 04/24/23 04/24/23 [place] Carbonate 900 mg PO HS 04/24/23 04/24/23 QUEtiapine [SEROquel] 200 mg PO HS 04/24/23 04/24/23 Previous Rx's Medication Instructions Recorded traZODone HCL [Desyrel] 100 mg PO HS 30 Days tab 05/10/22 Aspirin 81 mg PO DAILY #30 tab 04/26/23 Atorvastatin [Lipitor] 80 mg PO DAILY #30 tab 04/26/23 Losartan [Cozaar] 25 mg PO HS #30 tab 04/26/23 Ticagrelor [Brilinta] 90 mg PO BID #60 tab 04/26/23 carvediloL [Coreg*] 12.5 mg PO BID-W/MEALS #60 tab 04/26/23 Allergies Allergy/AdvReac Type Severity Reaction Status Date / Time No Known Allergies Allergy Verified 04/24/23 08:22 Review of Systems ROS Statement: Those systems with pertinent positive or pertinent negative responses have been documented in the HPI. ROS Other: All systems not noted in ROS Statement are negative. Past Medical History Past Medical History: Hypertension, Prostate Disorder Additional Past Medical History / Comment(s): bipolar 1 History of Any Multi-Drug Resistant Organisms: None Reported Past Surgical History: No Surgical Hx Reported Additional Past Surgical History / Comment(s): oral Past Anesthesia/Blood Transfusion Reactions: No Reported Reaction Additional Past Anesthesia/Blood Transfusion Reaction / Comment(s): has not had anesthesia or blood transfusion Past Psychological History: Bipolar Smoking Status: Current every day smoker Past Alcohol Use History: Abuse, Daily Past Drug Use History: None Reported - Past Family History Father Family Medical History: Cancer Additional Family Medical History / Comment(s): MELANOMA Mother Family Medical History: Coronary Artery Disease (CAD) Additional Family Medical History / Comment(s): CABG Brother(s) History Unknown: Yes Sister(s) History Unknown: Yes General Exam Limitations: no limitations General appearance: alert, in no apparent distress Head exam: Present: atraumatic, normocephalic, normal inspection Eye exam: Present: normal appearance, PERRL, EOMI. Absent: scleral icterus, conjunctival injection, periorbital swelling ENT exam: Present: normal exam, mucous membranes moist Neck exam: Present: normal inspection. Absent: tenderness, meningismus, lymphadenopathy Respiratory exam: Present: normal lung sounds bilaterally. Absent: respiratory distress, wheezes, rales, rhonchi, stridor Cardiovascular Exam: Present: regular rate, normal rhythm, normal heart sounds. Absent: systolic murmur, diastolic murmur, rubs, gallop, clicks GI/Abdominal exam: Present: soft, normal bowel sounds. Absent: distended, tenderness, guarding, rebound, rigid Extremities exam: Present: normal inspection, full ROM, normal capillary refill. Absent: tenderness, pedal edema, joint swelling, calf tenderness Back exam: Present: normal inspection Neurological exam: Present: alert, oriented X3, CN II-XII intact Psychiatric exam: Present: normal affect, normal mood Skin exam: Present: warm, dry, intact, normal color. Absent: rash Course Vital Signs 04/24/23 07:38 Temperature 98.2 F Pulse Rate 55 L Respiratory 20 Rate Blood Pressure 180/108 O2 Sat by Pulse 99 Oximetry Chest Pain MDM - MDM Was pt. sent in by a medical professional or institution (, PA, NCR OPERATOR, urgent care, hospital, or penitentiary...) When possible be specific @ -No Did you speak to anyone other than the patient for history (EMS, parent, family, police, friend...)? What history was obtained from this source @ -No Did you review nursing and triage notes (agree or disagree)? Why? @ -I reviewed and agree with nursing and triage notes Were old charts reviewed (outside hosp., previous admission, EMS record, old EKG, old radiological studies, urgent care reports/EKG's, penitentiary records)? Report findings @ -No old charts were reviewed Differential Diagnosis (chest pain, altered mental status, abdominal pain women, abdominal pain men, vaginal bleeding, weakness, fever, dyspnea, syncope, headache, dizziness, GI bleed, back pain, seizure, CVA, palpatations, mental health, musculoskeletal)? @ -STEMI, NSTEMI, unstable angina, pe EKG interpreted by me (3pts min.). @ -EKG interpreted by me and demonstrates ST elevation 1, aVL. Reciprocal changes 2, 3, aVF. Rate of 50. QRS 134. QTC 449 X-rays interpreted by me (1pt min.). @ -yes and demonstrates no acute process CT interpreted by me (1pt min.). @ -none done U/S interpreted by me (1pt. min.). @ -None done What testing was considered but not performed or refused? (CT, X-rays, U/S, labs)? Why? @ -None What meds were considered but not given or refused? Why? @ -None Did you discuss the management of the patient with other professionals (professionals i.e. , PA, NCR OPERATOR, lab, RT, psych nurse, mental health social worker, battery container inspector, teacher, medical information officer, returned case inspector)? Give summary @ -yes, spoke with Dr. Toledo, supervisor payroll media relations manager who will take patient to cardiac cath lab radiology technologist Was smoking cessation discussed for >3mins.? @ -No Was critical care preformed (if so, how long)? @ -yes, 35 minutes for stemi activation and preparation for cardiac cath lab radiology technologist, heparin administration Were there social determinants of health that impacted care today? How? (Homelessness, low income, unemployed, alcoholism, drug addiction, transportation, low edu. Level, literacy, decrease access to med. care, prison, rehab)? @ -No Was there de-escalation of care discussed even if they declined (Discuss DNR or withdrawal of care, Hospice)? DNR status @ -No What co-morbidities impacted this encounter? (DM, HTN, Smoking, COPD, CAD, Cancer, CVA, ARF, Chemo, Hep., AIDS, mental health diagnosis, sleep apnea, morbid obesity)? @ -htn Was patient admitted / discharged? Hospital course, mention meds given and route, prescriptions, significant lab abnormalities, going to OR and other pertinent info. @ - Upon arrival patient is placed in room 24. A thorough history and physical exam was performed. 12-lead EKG is obtained which demonstrates ST segment elevation. STEMI is activated at this time. Patient has no contraindications to heparin and therefore he is given 4000 units of heparin, 4 chewable aspirins, 80 mg of atorvastatin and a liter bolus of normal saline Dr. Toledo does present to the ED. Patient taken to cardiac cath lab radiology technologist two in stable condition with a guarded prognosis. Spoke with Nilsa from [facility] who agreed to admit the patient Undiagnosed new problem with uncertain prognosis? @ -yes Drug Therapy requiring intensive monitoring for toxicity (Heparin, Nitro, Insulin, Cardizem)? @ -heparin Were any procedures done? @ -No Diagnosis/symptom? @ -acute chest pain, acute stemi Acute, or Chronic, or Acute on Chronic? @ -acute Uncomplicated (without systemic symptoms) or Complicated (systemic symptoms)? @ -complicated Side effects of treatment? @ -stroke, intracranial hemorrhage, GI bleeding Exacerbation, Progression, or Severe Exacerbation? @ -No Poses a threat to life or bodily function? How? (Chest pain, [place], [place], pneumonia, PE, COPD, DKA, ARF, appy, cholecystitis, CVA, Diverticulitis, Homicidal, Suicidal, threat to staff... and all critical care pts) @ -yes, patient presents with acute coronary event which could progress to dysrhythmia and arrest Disposition Clinical Impression: Chest pain, STEMI (ST elevation myocardial infarction) Disposition: ADMITTED IP TO THIS [facility] Condition: Stable Is patient prescribed a controlled substance at d/c from ED?: No Time of Disposition: 08:09 Decision to Admit Reason: Admit from EC Decision Date: 04/24/23 Decision Time: 08:09
[2023-04-24] MEDS ORDERED: NALOXONE 0.4 MG/ML 1 ML VIAL IV PRN (08:09)
--- NOTE | 2023-04-24 08:10 | XR ---
EXAMINATION TYPE: XR chest 1V portable DATE OF EXAM: 04/24/2023 HISTORY: Shortness of breath. COMPARISON: None. TECHNIQUE: Single view of the chest is submitted. FINDINGS: Demonstrated are scattered senescent parenchymal change. There is no evidence for focal infiltrate. The heart is stable. Hilar and mediastinal structures are within normal limits. Degenerative changes are seen of the dorsal spine. IMPRESSION: 1. Chronic changes without evidence for acute pulmonary disease.
[2023-04-24 08:16] LABS: Prothrombin Time 10.4 sec (9.0-12.0)
[2023-04-24 08:18] LABS: Basophils % (A) 0 %; Eosinophils # (A) 0.2 k/uL (0-0.7); Eosinophils % (A) 1 %; HGB 17.3 gm/dL (13.0-17.5); Lymphocytes # (A) 1.9 k/uL (1.0-4.8); Lymphocytes % (A) 14 %; MCHC 32.7 g/dL (31.0-37.0); MCV 94.8 fL (80.0-100.0); Mean Platelet Volume 9.1; Monocytes # (A) 0.5 k/uL (0-1.0); Monocytes % (A) 4 %; Neutrophils # (A) 10.6 k/uL (1.3-7.7); Neutrophils % (A) 80 %; Platelet Count 227 k/uL (150-450); RBC 5.59 m/uL (4.30-5.90); RDW 12.6 % (11.5-15.5); WBC 13.3 k/uL (3.8-10.6)
[2023-04-24 08:22] LABS: ALT 30 U/L (4-49); AST 31 U/L (17-59); African American GFR (CKD) >90 (>60 ml/min/1.73 sqM); Albumin 4.7 g/dL (3.5-5.0); Alkaline Phosphatase 80 U/L (38-126); Anion Gap 12 mmol/L; Blood Urea Nitrogen 16 mg/dL (9-20); Calcium 11.1 mg/dL (8.4-10.2); Carbon Dioxide 20 mmol/L (22-30); Chloride 104 mmol/L (98-107); Glucose 177 mg/dL (74-99); Lipase 91 U/L (23-300); Non-African American GFR(CKD) >90 (>60 ml/min/1.73 sqM); Sodium 136 mmol/L (137-145); Total Bilirubin 1.1 mg/dL (0.2-1.3); Total Protein 7.6 g/dL (6.3-8.2)
[2023-04-24] MEDS ORDERED: HYDROmorphone 0.5 MG/0.5 ML SYRINGE IVP STA (08:23)
[2023-04-24] MEDS ORDERED: LIDOCAINE 1% INJ 10MG/ML (5 ML VIAL-PF) SQ ONE (08:23)
[2023-04-24] MEDS ORDERED: VERAPAMIL SYRINGE (5 MG/10 ML) INTRAARTER ONE (08:24)
[2023-04-24 08:25] LABS: Potassium 4.6 mmol/L (3.5-5.1)
[2023-04-24] MEDS ORDERED: IOPAMIDOL-370 100ML BTL INJ ONE ×2 (08:53→09:00)
[2023-04-24] MEDS ORDERED: TICAGRELOR 90 MG TAB PO ONE (08:53)
[2023-04-24] MEDS ORDERED: IV FLUID CONTINUATION 650 ML IV ONE (08:53)
[2023-04-24] MEDS ORDERED: NITROGLYCERIN 1000MCG/10ML SYRINGE INTRACORON ONE (08:55)
[2023-04-24] MEDS ORDERED: SODIUM CHLORIDE 0.9% 1,000 ML IV SCH (09:15)
[2023-04-24 09:32] LABS: Glucose,Whole Blood 140 mg/dL (70-110)
--- NOTE | 2023-04-24 10:36 | CONS ---
CONSULTATION HISTORY OF PRESENT ILLNESS: This is a 57-year-old gentleman with a history of bipolar disorder, hypertension, smoking, and alcoholism. He is under the care of Dr. Nguyen. He has been experiencing discomfort in the chest that came and went lasting a minute or 2 since the night. Last night was quite uncomfortable. He had a longer episode of chest pressure and heaviness with diaphoresis. He came into the emergency room, was found to have inferior ST elevation with sinus bradycardia, but was hemodynamically stable. I saw him in the emergency room and noted that he had an ST-elevation SC involving inferior wall, advised prompt cardiac catheterization and PCI, explained him the rationale, risks, benefits, and options. The patient was in pain, but he was hemodynamically stable. His heart rate was in the 45 to 50 range, sinus mechanism. PAST MEDICAL HISTORY: 1. Bipolar disorder. 2. History of hypertension. 3. Alcoholism. 4. History of smoking and possibly some COPD. MEDICATIONS AT HOME: Include: 1. Carvedilol 25 mg b.i.d. 2. Seroquel. 3. Green. 4. Celexa. 5. Zyrtec. ALLERGIES: No known allergies. PHYSICAL EXAMINATION: VITAL SIGNS: Blood pressure was 160/88, pulse rate was about 49 per minute. HEENT: Unremarkable. Fundus was not examined by me. NECK: Supple. No JVD. I do not hear a carotid bruit. There is no thyromegaly. HEART: Reveals S1 and S2 heard normally. No significant murmurs. LUNGS: Clear. ABDOMEN: Soft and nontender. EXTREMITIES: Lower extremities reveal normal pulses. No edema. CENTRAL NERVOUS SYSTEM: Normal. DIAGNOSTIC STUDIES: EKG revealed sinus bradycardia and ST elevation involving leads II, III, aVF with reciprocal depression suggestive of acute inferior ST-elevation SC. IMPRESSION: 1. Acute inferior ST-elevation myocardial infarction. 2. Hypertension. 3. Bipolar disorder. 4. History of alcoholism and smoking. RECOMMENDATIONS: I recommended prompt PCI and proceeded to perform intervention expeditiously. MMODL / SWATIN: [id number] /
--- NOTE | 2023-04-24 10:36 | CC ---
CARDIAC CATHETERIZATION REPORT PROCEDURES PERFORMED: 1. Left heart catheterization and coronary angiography. 2. Percutaneous transluminal coronary angioplasty and. 3. stenting of proximal right coronary artery in the setting of an acute inferior ST- elevation myocardial infarction with reperfusion accomplished in 61 minutes. PERFORMED BY: Dr. Josselyn Toledo. ANESTHESIA: Moderate conscious sedation time was 37 minutes. The patient was administered Versed. Oxygen saturation, hemodynamics, and EKG were monitored closely. CLINICAL INFORMATION: Mr. Julio César Main is a 57-year-old gentleman with a history of chest pain on and off for the last 72 hours. He came in with a prolonged episode of chest pain last night, was found to have inferior ST elevation, was seen by me in the ER, probably advised cardiac cath and PCI, brought in for the cardiac cath expeditiously after explaining the rationale, risks, benefits, and options. PROCEDURE NOTE: Under local anesthesia and strict aseptic precautions, a 6-Bengali introducer was placed in the right radial artery. Using a JR4 guide catheter of 6-Bengali caliber, I performed coronary angiography of the right coronary artery and performed PCI of this vessel and then performed coronary angiography of the left system with a 3.5 left diagnostic Myles catheter. I checked LV pressures with the right guide catheter. LV- gram was not performed. The sheath was taken out and TR band applied as per protocol with saturation in the fingers of the right hand was 98%. The patient will be on a combination of aspirin and Brilinta for 1 year without interruption. He received intravenous heparin of about 7500 units total. He weighs over 100 kg. His ACT was 319. The TR band was applied and the patient was sent to the room in stable condition. CARDIAC CATHETERIZATION FINDINGS: RIGHT CORONARY ARTERY: This vessel is totally occluded, seen as a stump without much antegrade flow. A very dominant vessel. LEFT MAIN CORONARY ARTERY: Long patent vessel. No significant disease, bifurcates into LAD and circumflex. LEFT ANTERIOR DESCENDING CORONARY ARTERY: Good-caliber vessel, extends along the anterior wall, gives off a diagonal branch and a septal branch. Then the LAD curves in the diagonal distribution, runs all the way to the apex and the distal aspect of the LAD has minor irregularities and tapers into a small caliber vessel with diffuse disease in the distal 1/3 of the vessel upto 50% narrowing.. There is no significant obstructive disease in the proximal and mid LAD system other than minor irregularities. The septal branch is large in caliber, supplies a fair amount of myocardium. The first diagonal and the continuation of the LAD in the diagonal distribution has diffuse distal disease as described above. Left posterior circumflex coronary artery is a nondominant vessel, distally gives off 2 obtuse marginal branches, runs laterally, has minor irregularities, no significant disease. The left ventricular end-diastolic pressure was 15 mmHg without any gradient across the aortic valve. FINAL IMPRESSION: This patient has a right-dominant system, total occlusion of the dominant RCA, which is the culprit vessel. No significant disease in the left system and slightly elevated filling pressures. No gradient. PCI PROCEDURE DETAILS: I used a standard right Myles guide catheter to cannulate the right coronary artery and a run-through wire to cross the lesion. A 3.0 caliber 12 mm Trek balloon was used to pre-dilate the lesion. Subsequently, I deployed an 18 mm long 4.5-caliber Xience stent at 13 atmospheres. The patient had chest pain and more prominent inferior ST elevation. Excellent angiographic result was achieved without complication. Multiple angiograms were obtained. The sheath was then taken out after performing diagnostic cardiac cath. The patient was sent to the room in stable condition. He will be on aspirin and Brilinta combination without interruption for 1 year. He was administered 180 mg of Brilinta and 7500 units of heparin and ACT was 319. The patient weighs about 104 kg. Results were discussed with the patient. I also spoke to his Eben by phone. CLIFTON / PATRICIO: [id number] / MTDD
--- NOTE | 2023-04-24 10:52 | P.HPIM ---
History of Present Illness 49-year-old male came in the with compensative chest pain found to have ST elevation myocardial infarction in the inferior leads, patient on and cardiac catheterization and stenting to RCA. Patient does smoke denied any previous car diac disease.patient does have history of hypertension. Echocardiac is pending patient does have leukocytosis without any evidence of infection REVIEW OF SYSTEMS: CONSTITUTIONAL: No fever, no malaise, no fatigue. HEENT: No recent visual problems or hearing problems. Denied any sore throat. CARDIOVASCULAR: No orthopnea, PND, no palpitations, no syncope. PULMONARY: No shortness of breath, no cough, no hemoptysis. GASTROINTESTINAL: No diarrhea, no nausea, no vomiting, no abdominal pain. NEUROLOGICAL: No headaches, no weakness, no numbness. HEMATOLOGICAL: Denies any bleeding or petechiae. GENITOURINARY: Denies any burning micturition, frequency, or urgency. MUSCULOSKELETAL/RHEUMATOLOGICAL: Denies any joint pain, swelling, or any muscle pain. ENDOCRINE: Denies any polyuria or polydipsia. The rest of the 14-point review of systems is negative. PHYSICAL EXAMINATION: GENERAL: The patient is alert and oriented x3, not in any acute distress. Well developed, well nourished. HEENT: Pupils are round and equally reacting to light. EOMI. No scleral icterus. No conjunctival pallor. Normocephalic, atraumatic. No pharyngeal erythema. No thyromegaly. CARDIOVASCULAR: S1 and S2 present. No murmurs, rubs, or gallops. PULMONARY: Chest is clear to auscultation, no wheezing or crackles. ABDOMEN: Soft, nontender, nondistended, normoactive bowel sounds. No palpable organomegaly. MUSCULOSKELETAL: No joint swelling or deformity. EXTREMITIES: No cyanosis, clubbing, or pedal edema. NEUROLOGICAL: Gross neurological examination did not reveal any focal deficits. SKIN: No rashes. Assessment and plan -Acute ST elevation myocardial infarction: Patient is status post cardiac cat heterization and stenting and patient is presently on dual antiplatelet therapy, losartan, beta nathan, statin. Pending echocardiogram. Nicotine use: Counseling was provided -Bipolar disorder -Hypertension: Amlodipine is being held patient was started on losartan. Coreg dose was decreased due to sinus bradycardia DVT prophylaxis: Early ambulation Past Medical History Past Medical History: Coronary Artery Disease (CAD), Hypertension, Myocardial Infarction (MS), Prostate Disorder Additional Past Medical History / Comment(s): bipolar 1 Last Myocardial Infarction Date:: 04/24/23 History of Any Multi-Drug Resistant Organisms: None Reported Past Surgical History: Heart Catheterization With Stent Additional Past Surgical History / Comment(s): RCA stent 04/24/23 Past Anesthesia/Blood Transfusion Reactions: No Reported Reaction Additional Past Anesthesia/Blood Transfusion Reaction / Comment(s): has not had anesthesia or blood transfusion Date of Last Stent Placement:: 04/24/23 Past Psychological History: Bipolar Smoking Status: Current every day smoker Past Alcohol Use History: Abuse, Daily Additional Past Alcohol Use History / Comment(s): denies alcohol use Past Drug Use History: None Reported - Past Family History Father Family Medical History: Cancer Additional Family Medical History / Comment(s): MELANOMA Mother Family Medical History: Coronary Artery Disease (CAD) Additional Family Medical History / Comment(s): CABG Brother(s) History Unknown: Yes Family Medical History: Coronary Artery Disease (CAD), Myocardial Infarction (MS) Sister(s) History Unknown: Yes Medications and Allergies Home Medications Medication Instructions Recorded Confirmed Type traZODone HCL [Desyrel] 100 mg PO HS 30 Days tab 05/10/22 04/24/23 Rx Cetirizine HCl [Zyrtec] 10 mg PO DAILY 04/24/23 04/24/23 History Citalopram Hydrobromide [CeleXA] 40 mg PO DAILY 04/24/23 04/24/23 History Fish Oil(Unknown Dose) 3 cap PO DAILY 04/24/23 04/24/23 History [place] Carbonate 900 mg PO HS 04/24/23 04/24/23 History QUEtiapine [SEROquel] 200 mg PO HS 04/24/23 04/24/23 History carvediloL [Coreg] 25 mg PO BID 04/24/23 04/24/23 History Allergies Allergy/AdvReac Type Severity Reaction Status Date / Time No Known Allergies Allergy Verified 04/24/23 08:22 Physical Exam Vitals: Vital Signs Temp Pulse Resp BP BP Pulse Ox 04/24/23 10:09 56 L 19 140/95 95 04/24/23 09:30 98.6 F 18 139/94 96 04/24/23 08:10 54 L 16 143/91 98 04/24/23 07:38 98.2 F 55 L 20 180/108 99 Intake and Output 04/23/23 04/24/23 04/24/23 22:59 06:59 14:59 Intake Total 300 Output Total 350 Balance -50 Intake: IV 300 Output: Urine 350 Other: Weight 100.698 kg Results CBC & Chem 7: 04/24/23 07:55 04/24/23 07:55 Labs: Abnormal Lab Results - Last 24 Hours (Table) 04/24/23 04/24/23 04/24/23 Range/Units 07:55 07:55 07:55 WBC 13.3 H (3.8-10.6) k/uL Neutrophils # 10.6 H (1.3-7.7) k/uL Sodium 136 L (137-145) mmol/L Carbon Dioxide 20 L (22-30) mmol/L Glucose 177 H (74-99) mg/dL POC Glucose (mg/dL) (70-110) mg/dL Calcium 11.1 H (8.4-10.2) mg/dL Troponin I 0.091 H* (0.000-0.034) ng/mL 04/24/23 Range/Units 09:30 WBC (3.8-10.6) k/uL Neutrophils # (1.3-7.7) k/uL Sodium (137-145) mmol/L Carbon Dioxide (22-30) mmol/L Glucose (74-99) mg/dL POC Glucose (mg/dL) 140 H (70-110) mg/dL Calcium (8.4-10.2) mg/dL Troponin I (0.000-0.034) ng/mL Thrombosis Risk Factor Assmnt - Choose All That Apply Any of the Below Risk Factors Present?: Yes Each Factor Represents 1 point: Acute MS, Age 41-60 years Thrombosis Risk Factor Assessment Total Risk Factor Score: 2 Thrombosis Risk Factor Assessment Level: Low Risk
[2023-04-24] MEDS: CITALOPRAM HYDROBROMIDE 20 MG TAB PO SCH (11:57)
[2023-04-24] MEDS: NICOTINE 21MG/24HR PATCH TRANSDERM SCH (11:58)
--- NOTE | 2023-04-24 13:19 | CA ---
Transthoracic Echo Report Name: Julio César Main Age: 57 Gender: M : 1965 Exam Date: 04/24/2023 10:51 Exam Location: [facility] Ht (in): 71 Wt (lb): 222 Ordering Physician: Jaylon Toledo MD ([id number]) Attending/Referring Phys: Commercial Reporter Merlyn Horvath RDCS Procedure CPT: Indications: LV function Cardiac Hx: Technical Quality: Poor Contrast 1: Lumason Total Dose (mL): 5 Contrast 2: Total Dose (mL): MEASUREMENTS (Male / Female) Normal Values 2D ECHO LV Diastolic Diameter PLAX 5.5 cm 4.2 - 5.9 / 3.9 - 5.3 cm LV Systolic Diameter PLAX 4.4 cm IVS Diastolic Thickness 0.9 cm 0.6 - 1.0 / 0.6 - 0.9 cm LVPW Diastolic Thickness 1.0 cm 0.6 - 1.0 / 0.6 - 0.9 cm LV Relative Wall Thickness 0.4 M-MODE Aortic Root Diameter MM 3.8 cm LA Systolic Diameter MM 3.1 cm LA Ao Ratio MM 0.8 AV Cusp Separation MM 2.3 cm DOPPLER AV Peak Velocity 89.7 cm/s AV Peak Gradient 3.2 mmHg AV Mean Velocity 69.9 cm/s AV Mean Gradient 2.1 mmHg AV Velocity Time Integral 18.1 cm LVOT Peak Velocity 82.2 cm/s LVOT Peak Gradient 2.7 mmHg LVOT Velocity Time Integral 17.9 cm MV Area PHT 2.8 cm??? Mitral E Point Velocity 39.8 cm/s Mitral A Point Velocity 60.9 cm/s Mitral E to A Ratio 0.7 MV Deceleration Time 266.3 ms MV E' Velocity 4.6 cm/s Mitral E to MV E' Ratio 8.6 FINDINGS Left Ventricle Mildly increased left ventricular wall thickness. Left ventricular ejection fraction is estimated at 40-45 %. Inferior and inferoseptal hypokinesis.left ventricular cavity size normal. Right Ventricle Right ventricle not well visualized. Right Atrium Right atrium not well visualized. Left Atrium Normal left atrial size. Mitral Valve Structurally normal mitral valve. Mild mitral regurgitation. Aortic Valve No aortic valve stenosis or regurgitation. Tricuspid Valve Structurally normal tricuspid valve. Mild tricuspid regurgitation. Pulmonic Valve Pulmonic valve not well visualized. Pericardium No pericardial effusion. Aorta Normal size aortic root and proximal ascending aorta. CONCLUSIONS 1. Moderately impaired left ventricle systolic function with segmental wall motion abnormality 2. Mild mitral and tricuspid regurgitation Previewed by: Dr. Galina Torres MD (Electronically Signed) Final Date: 24 April 2023 13:18
[2023-04-24] MEDS: carvediloL 12.5 MG TAB PO SCH (16:38)
[2023-04-24] MEDS ORDERED: ACETAMINOPHEN TAB 325 MG TAB PO PRN (19:01)
[2023-04-24] MEDS: LOSARTAN 25 MG TAB PO SCH (20:22)
[2023-04-24] MEDS: LITHIUM CARBONATE 300 MG CAP PO SCH (20:22)
[2023-04-24] MEDS: QUEtiapine 200 MG TAB PO SCH (20:22)
[2023-04-24] MEDS: TICAGRELOR 90 MG TAB PO SCH (20:22)
[2023-04-24] MEDS: traZODone HCL 100 MG TAB PO SCH (20:22)
[2023-04-25 04:10] LABS: African American GFR (CKD) >90 (>60 ml/min/1.73 sqM); Anion Gap 5 mmol/L; Blood Urea Nitrogen 13 mg/dL (9-20); Carbon Dioxide 24 mmol/L (22-30); Chloride 109 mmol/L (98-107); Glucose 101 mg/dL (74-99); Non-African American GFR(CKD) >90 (>60 ml/min/1.73 sqM); Potassium 3.8 mmol/L (3.5-5.1); Sodium 138 mmol/L (137-145)
[2023-04-25 04:27] LABS: Basophils % (A) 0 %; Eosinophils # (A) 0.2 k/uL (0-0.7); Eosinophils % (A) 2 %; HCT 47.1 % (39.0-53.0); HGB 15.9 gm/dL (13.0-17.5); Lymphocytes % (A) 20 %; MCH 32.1 pg (25.0-35.0); MCHC 33.8 g/dL (31.0-37.0); Mean Platelet Volume 8.8; Monocytes # (A) 0.7 k/uL (0-1.0); Monocytes % (A) 7 %; Neutrophils % (A) 70 %; Platelet Count 142 k/uL (150-450); RBC 4.96 m/uL (4.30-5.90); RDW 12.7 % (11.5-15.5)
[2023-04-25] MEDS: carvediloL 12.5 MG TAB PO SCH ×2 (06:56→16:34)
[2023-04-25] MEDS ORDERED: POTASSIUM CHLORIDE ER 20 MEQ TAB.ER PO STA (08:48)
[2023-04-25] MEDS ORDERED: FISH OIL PO SCH (09:00)
[2023-04-25] MEDS: TICAGRELOR 90 MG TAB PO SCH ×2 (09:37→20:58)
[2023-04-25] MEDS: CITALOPRAM HYDROBROMIDE 20 MG TAB PO SCH (09:37)
[2023-04-25] MEDS: ATORVASTATIN 80 MG TAB PO SCH (09:37)
[2023-04-25] MEDS: ASPIRIN 81 MG PO SCH (09:38)
[2023-04-25] MEDS: NICOTINE 21MG/24HR PATCH TRANSDERM SCH (09:38)
[2023-04-25] MEDS: LORATADINE 10 MG TAB PO SCH (09:38)
--- NOTE | 2023-04-25 09:41 | PN ---
PROGRESS NOTE SUBJECTIVE: This is a 57-year-old gentleman with history of hypertension, previous history of alcoholism, and current history of smoking, came in with an acute inferior ST-elevation IL yesterday, underwent prompt stenting of RCA with a 4.5 caliber 18 mm long Xience drug-eluting stent. He is doing well this morning. EKG revealed some Q-waves in the inferior leads. Heart rate and blood pressure are good. OBJECTIVE: VITAL SIGNS: Stable. Blood pressure 118/70, pulse rate is about 68. CARDIOVASCULAR: S1, S2 heard normally. NECK: No JVD. LUNGS: Clear. ABDOMEN: Unremarkable. EXTREMITIES: Lower extremities unremarkable. Right radial site is clean and dry with a good pulse. PLAN: His echocardiogram revealed ejection fraction of 40% to 45% with inferior inferoseptal hypokinesia. I am recommending that we increase activity. Move him to telemetry today on current medical regimen and hopefully possible discharge tomorrow if he remains stable. Discussed my thoughts in detail with the patient. MMROYCEL / IJN: [id number] /
--- NOTE | 2023-04-25 13:19 | P.PN ---
Subjective Progress Note Date: 04/25/23 49-year-old male came in the with compensative chest pain found to have ST elevation myocardial infarction in the inferior leads, patient on and cardiac catheterization and stenting to RCA. Patient does smoke denied any previous cardiac disease.patient does have history of hypertension. Echocardiac is pe nding patient does have leukocytosis without any evidence of infection 04/25/2023 Patient is evaluated today in the intensive care unit. Patient reports chest pain/pressure has completely resolved does report some mild shortness of breath. Patient does smoke 1 pack of cigarettes per day is counseled extensively on the importance of cessation. Patient has been started on dual antiplatelet therapy with aspirin and brilinta. Echocardiogram shows EF 40-45% with mild SONJA and TR. Troponin level did peak at 28.7. Review of Systems Constitutional: Denied any fatigue denied any fever. Cardio vascular: denied any chest pain, palpitations Gastrointestinal: denied any nausea, vomiting, diarrhea Pulmonary: Denied any shortness of breath cough Neurologic denied any new focal deficits All inpatient medications were reviewed and appropriate changes in these medications as dictated in the interval history and assessment and plan. PHYSICAL EXAMINATION: GENERAL: The patient is alert and oriented x3, not in any acute distress. Well developed, well nourished. HEENT: Pupils are round and equally reacting to light. EOMI. No scleral icterus. No conjunctival pallor. Normocephalic, atraumatic. No pharyngeal erythema. No thyromegaly. CARDIOVASCULAR: S1 and S2 present. No murmurs, rubs, or gallops. PULMONARY: Chest is clear to auscultation, no wheezing or crackles. ABDOMEN: Soft, nontender, nondistended, normoactive bowel sounds. No palpable organomegaly. MUSCULOSKELETAL: No joint swelling or deformity. EXTREMITIES: No cyanosis, clubbing, or pedal edema. NEUROLOGICAL: Gross neurological examination did not reveal any focal deficits. SKIN: No rashes. Assessment and plan -Acute ST elevation myocardial infarction: Patient is status post cardiac catheterization and RCA stenting and patient is presently on dual antiplatelet therapy, losartan, beta nathan, statin. -Nicotine use: Counseling was provided -Bipolar disorder -Hypertension: improved with medication changes -Systolic heart failure EF 40-45% DVT prophylaxis: Early ambulation GI prophylaxis Full Code Plan Continue cardiac monitoring and patient will be monitored for another 24 hours. Plan for D/C home tomorrow if patient remains stable. The impression and plan of care has been dictated by Nilsa Leiva Nurse Practitioner as directed. Dr. Feliciano MD I have performed a history and physical examination and medical decision making of this patient, discussed the same with the dictator, and agree with the dictators assessment and plan as written, documented as a scribe. Based on total visit time, I have performed more than 50% of this visit. Objective - Vital Signs Vital signs: Vital Signs Temp 98.0 F 04/25/23 08:00 Pulse 55 L 04/25/23 11:00 Resp 15 04/25/23 09:00 BP 103/60 04/25/23 09:00 Pulse Ox 95 04/25/23 08:00 FiO2 Intake & Output 04/24/23 04/25/23 04/25/23 18:59 06:59 18:59 Intake Total 600 1280 120 Output Total 2600 1220 0 Balance -2000 60 120 Weight 100.698 kg 106.5 kg Intake: IV 300 Oral 300 1280 120 Output: Urine 2600 1220 0 Other: Voiding Method Urinal Urinal Urinal # Voids 0 # Bowel Movements 1 - Labs CBC & Chem 7: 04/25/23 03:43 04/25/23 03:43 Labs: Abnormal Lab Results - Last 24 Hours (Table) 04/24/23 04/24/23 04/25/23 Range/Units 14:02 20:09 03:43 Plt Count 142 L (150-450) k/uL Chloride (98-107) mmol/L Glucose (74-99) mg/dL Troponin I 19.200 H* 28.700 H* (0.000-0.034) ng/mL 04/25/23 04/25/23 Range/Units 03:43 09:05 Plt Count (150-450) k/uL Chloride 109 H (98-107) mmol/L Glucose 101 H (74-99) mg/dL Troponin I 12.600 H* (0.000-0.034) ng/mL Assessment and Plan Time with Patient: Less than 30
[2023-04-25] MEDS: LOSARTAN 25 MG TAB PO SCH (20:58)
[2023-04-25] MEDS: traZODone HCL 100 MG TAB PO SCH (20:58)
[2023-04-25] MEDS: LITHIUM CARBONATE 300 MG CAP PO SCH (21:48)
[2023-04-25] MEDS: QUEtiapine 200 MG TAB PO SCH (21:48)
[2023-04-26] MEDS: carvediloL 12.5 MG TAB PO SCH (06:23)
[2023-04-26 08:36] VITALS: BP 107/59; PULSE 71; RESP 16; TEMP 97.1
[2023-04-26] MEDS: NICOTINE 21MG/24HR PATCH TRANSDERM SCH (08:36)
[2023-04-26] MEDS: TICAGRELOR 90 MG TAB PO SCH (08:36)
[2023-04-26] MEDS: ATORVASTATIN 80 MG TAB PO SCH (08:36)
[2023-04-26] MEDS: CITALOPRAM HYDROBROMIDE 20 MG TAB PO SCH (08:37)
[2023-04-26] MEDS: ASPIRIN 81 MG PO SCH (08:37)
[2023-04-26] MEDS: LORATADINE 10 MG TAB PO SCH (08:37)
--- NOTE | 2023-04-26 11:39 | P.PN ---
Subjective Progress Note Date: 04/26/23 HISTORY OF PRESENT ILLNESS: Patient is status post stenting of the RCA. Patient examined this morning he is sitting up in the chair. Patient denies chest pain or pressure. Denies s hortness of breath. Vital signs are stable. Echocardiogram completed revealing ejection fraction 40-45%. PHYSICAL EXAM: VITAL SIGNS: Reviewed. GENERAL: Well-developed in no acute distress. NECK: Supple. No JVD or thyromegaly LUNGS: Respirations even and unlabored. Lungs essentially clear to auscultation bilaterally. HEART: Regular rate and rhythm. S1 and S2 heard. EXTREMITIES: Normal range of motion. No clubbing or cyanosis. Peripheral pulses intact. No lower extremity edema ASSESSMENT: STEMI, status post stenting of RCA Ischemic cardiomyopathy, EF 40-45% Hypertension Nicotine dependence Bipolar disorder History of alcohol abuse, currently sober PLAN: Continue dual antiplatelet therapy with aspirin and Brilinta Continue high intensity statin Continue additional cardiac medications Patient is stable for discharge home today from a cardiac standpoint Nurse practitioner note has been reviewed by physician. Signing provider agrees with the documented findings, assessment, and plan of care. Objective - Vital Signs Vital signs: Vital Signs Temp 97.1 F L 04/26/23 08:34 Pulse 71 04/26/23 08:34 Resp 16 04/26/23 08:34 BP 107/59 04/26/23 08:34 Pulse Ox 97 04/26/23 08:34 FiO2 Intake & Output 04/25/23 04/26/23 04/26/23 18:59 06:59 18:59 Intake Total 120 540 618 Output Total 0 Balance 120 540 618 Intake: Oral 120 540 618 Output: Urine 0 Other: Voiding Method Urinal Toilet # Voids 0 2 # Bowel Movements 1 - Labs CBC & Chem 7: 04/25/23 03:43 04/25/23 03:43
--- NOTE | 2023-04-27 00:18 | P.DS ---
Providers Date of admission: 04/24/23 08:09 Attending physician: Ana Gamboa Consults: 04/24/23 08:09 Consult Physician Stat Consulting Provider: Jaylon Toledo Reason/Comments: stemi Do you want consulting provider notified?: Already Contacted Primary care physician: Vaughn Nguyen [facility] Course: Final Diagnosis -Acute ST elevation myocardial infarction: Patient is status post cardiac ca theterization and RCA stent -Nicotine use: Counseling was provided -Bipolar disorder -Hypertension: improved with medication changes -Systolic heart failure EF 40-45% Full Code Discharge Disposition Patient is stable for discharge. Cleared by cardiology. Patient is counseled extensively on smoking cessation. Discharged on dual antiplatelet therapy, losartan, beta nathan, statin. Patient to follow up with Dr. AERLINE Toledo on discharge and recommended to see primary provider Dr. Nguyen in 1 to 2 days. Hospital Course This is a 49-year-old male came in the with compensative chest pain found to have ST elevation myocardial infarction in the inferior leads, patient was taken for cardiac catheterization and had stenting to RCA. Patient does smoke reports 1 pack per day. Denied any previous cardiac disease, has history of hypertension. Patient was monitored in the intensive care unit. Patient reports chest pain/pressure has completely resolved does report some mild shortness of breath. Patient has been started on dual antiplatelet therapy with aspirin and brilinta. Echocardiogram shows EF 40-45% with mild SONJA and TR. Troponin level did peak at 28.7. Patient has been monitored 72 hours post cath with no further reports of chest discomfort, no dizziness or lightheadedness no shortness of breath. Lungs are clear S1 S2 auscultated abdomen soft nontender focal neurological exam is negative. Discharged home. Please see medication reconciliation for a list of current medication. Thank you for allowing us to participate in the care of this patient. The impression and plan of care has been dictated by Nilsa Leiva Nurse Practitioner as directed. Dr. Feliciano MD I have performed a history and physical examination and medical decision making of this patient, discussed the same with the dictator, and agree with the dictators assessment and plan as written, documented as a scribe. Based on total visit time, I have performed more than 50% of this visit. Patient Condition at Discharge: Stable Plan - Discharge Summary Discharge Rx Participant: No New Discharge Prescriptions: New Aspirin 81 mg PO DAILY #30 tab Atorvastatin [Lipitor] 80 mg PO DAILY #30 tab Ticagrelor [Brilinta] 90 mg PO BID #60 tab carvediloL [Coreg*] 12.5 mg PO BID-W/MEALS #60 tab Losartan [Cozaar] 25 mg PO HS #30 tab Continue traZODone HCL [Desyrel] 100 mg PO HS 30 Days tab Cetirizine HCl [Zyrtec] 10 mg PO DAILY Citalopram Hydrobromide [CeleXA] 40 mg PO DAILY Fish Oil(Unknown Dose) 3 cap PO DAILY QUEtiapine [SEROquel] 200 mg PO HS [place] Carbonate 900 mg PO HS Discontinued carvediloL [Coreg] 25 mg PO BID Discharge Medication List traZODone HCL [Desyrel] 100 mg PO HS 30 Days tab 05/10/22 [Rx] Cetirizine HCl [Zyrtec] 10 mg PO DAILY 04/24/23 [History] Citalopram Hydrobromide [CeleXA] 40 mg PO DAILY 04/24/23 [History] Fish Oil(Unknown Dose) 3 cap PO DAILY 04/24/23 [History] [place] Carbonate 900 mg PO HS 04/24/23 [History] QUEtiapine [SEROquel] 200 mg PO HS 04/24/23 [History] Aspirin 81 mg PO DAILY #30 tab 04/26/23 [Rx] Atorvastatin [Lipitor] 80 mg PO DAILY #30 tab 04/26/23 [Rx] Losartan [Cozaar] 25 mg PO HS #30 tab 04/26/23 [Rx] Ticagrelor [Brilinta] 90 mg PO BID #60 tab 04/26/23 [Rx] carvediloL [Coreg*] 12.5 mg PO BID-W/MEALS #60 tab 04/26/23 [Rx] Follow up Appointment(s)/Referral(s): Jaylon Toledo MD [STAFF PHYSICIAN] - 1 Week (unabe to reach office, patient to call and make appointment) Vaughn Nguyen DO [Primary Care Provider] - 1-2 days (office will call patient when they have an appoinment available) Ambulatory/Diagnostic Orders: Basic Metabolic Panel [LAB.AMB] Time Frame: 3 Days, Location: None Selected Patient Instructions/Handouts: *Surgery [facility] - After Heart Catheterization - [employer] Instructions, Cigarette Smoking and Your Health (GEN) Activity/Diet/Wound Care/Special Instructions: Recommend total smoking cessation Discharge Disposition: HOME SELF-CARE
== END 2023-04-26 12:26 | disposition home or self-care (01) | DRG 247 ==
LOC: EC 07:34 → 2SICU 08:09 → EC 08:10 → 2SICU 09:01 → 3SCARD 04-25 12:25
PROVIDERS: ADMIT Hospitalist; ATTEND Hospitalist
PROC: B2111ZZ Fluoroscopy of Multiple Coronary Arteries using Low Osmolar Contrast (ICD-10-PCS; 2023-04-24)
PROC: 027034Z Dilation of Coronary Artery, One Artery with Drug-eluting Intraluminal Device, Percutaneous Approach (ICD-10-PCS; principal; 2023-04-24 07:53)
PROC: 4A023N7 Measurement of Cardiac Sampling and Pressure, Left Heart, Percutaneous Approach (ICD-10-PCS; 2023-04-24 07:53)
DX: I21.19 ST elevation (STEMI) myocardial infarction involving other coronary artery of inferior wall (principal); I50.20 Unspecified systolic (congestive) heart failure; I11.0 Hypertensive heart disease with heart failure; F10.21 Alcohol dependence, in remission; J44.9 Chronic obstructive pulmonary disease, unspecified; F31.9 Bipolar disorder, unspecified; F17.210 Nicotine dependence, cigarettes, uncomplicated; I25.119 Atherosclerotic heart disease of native coronary artery with unspecified angina pectoris; I25.5 Ischemic cardiomyopathy; I25.2 Old myocardial infarction; Z71.6 Tobacco abuse counseling; Z82.49 Family history of ischemic heart disease and other diseases of the circulatory system; Z79.899 Other long term (current) drug therapy; Z79.02 Long term (current) use of antithrombotics/antiplatelets; Z79.82 Long term (current) use of aspirin
CPT/HCPCS: 36415; 71045; 80048; 80053; 83690; 83735; 83880; 84484; 85025; 85610; 85730; 93005; 93306; 93458; 94760; 96374; 99291

== ENCOUNTER → 2023-07-03 | Outpatient (CLI) | payer MEDICARE ==
[2023-07-03 17:09] LABS: Blood Urea Nitrogen 15.5 mg/dL (9.0-27.0)
== END | disposition home or self-care (01) ==
LOC: LABWHC1 10:34
PROVIDERS: ATTEND Psychiatry & Neurology Psychiatry
DX: Z51.81 Encounter for therapeutic drug level monitoring (principal); Z79.899 Other long term (current) drug therapy; F31.9 Bipolar disorder, unspecified; F10.20 Alcohol dependence, uncomplicated
CPT/HCPCS: 36415; 80178; 82565; 84443; 84520

== ENCOUNTER → 2024-06-20 | Outpatient (CLI) | payer MEDICARE | END | disposition home or self-care (01) | LOC: LABPRL 12:25 | PROVIDERS: ATTEND Family Medicine | DX: Z00.00 Encounter for general adult medical examination without abnormal findings | CPT/HCPCS: 80053; 80061; 83036; 84439; 84443; 85025 ==